=== PATIENT | male | born 1940 | race Caucasian/White ===

== ENCOUNTER 2016-04-11 11:21 | Inpatient (IN) | payer MEDICARE, OTHER ==
[2016-04-11] MEDS ORDERED: SODIUM CHLORIDE 0.9% 500 ML IV STA (12:06)
[2016-04-11] MEDS ORDERED: SODIUM CHLORIDE 0.9% 1,000 ML IV STA (12:06)
[2016-04-11 13:12] LABS: INR 1.2 (<1.1); Partial Thromboplastin Time 24.3 sec (22.0-30.0); Prothrombin Time 11.9 sec (9.0-12.0)
[2016-04-11 13:16] LABS: ALT 21 U/L (21-72); AST 27 U/L (17-59); Alkaline Phosphatase 89 U/L (38-126); Anion Gap 11 mmol/L; Blood Urea Nitrogen 21 mg/dL (9-20); Calcium 8.8 mg/dL (8.4-10.2); Carbon Dioxide 25 mmol/L (22-30); Chloride 105 mmol/L (98-107); Glucose 225 mg/dL (74-99); Non-African American GFR(MDRD) >60 (>60 ml/min/1.73 sqM); Potassium 4.1 mmol/L (3.5-5.1); Sodium 141 mmol/L (137-145); Total Protein 6.3 g/dL (6.3-8.2)
--- NOTE | 2016-04-11 13:33 | CT ---
EXAMINATION TYPE: CT brain wo con DATE OF EXAM: 04/11/2016 1:11 PM COMPARISON: NONE HISTORY: Pt c/o weakness and falling the last four days. CT DLP: 1207 mGycm Automated exposure control for dose reduction was used. FINDINGS: Abnormal low attenuation in the right greater than left frontal lobes is again noted. Periventricular white matter shows low attenuation as on previous exam. Extensive cortical atrophy. Prior lacunar in farcts noted in the basal ganglia on the left are again noted. Prominence of the lateral ventricles i s stable. There are cerebral vascular calcifications. No hemorrhage evident. Calvarium is intact. Inf lammatory change persists within the left maxillary sinus. IMPRESSION: Chronic small vessel ischemia and age-related atrophy. Evidence of previous infarctions. Left maxilla ry sinus disease. Correlate to exclude normal pressure hydrocephalus.
[2016-04-11 13:35] LABS: Basophils % (A) 0 %; CH 30.5; CHCM 34.1; Eosinophils # (A) 0.1 k/uL (0-0.7); Eosinophils % (A) 1 %; HCT 39.5 % (39.0-53.0); HDW 2.71; Luc # (Auto) 0.07; Luc % (Auto) 1; Lymphocytes # (A) 0.3 k/uL (1.0-4.8); Lymphocytes % (A) 5 %; MCH 29.6 pg (25.0-35.0); MCV 89.9 fL (80.0-100.0); Mean Platelet Volume 7.4; Monocytes # (A) 0.4 k/uL (0-1.0); Monocytes % (A) 6 %; Neutrophils % (A) 87 %; RBC 4.39 m/uL (4.30-5.90); RDW 13.8 % (11.5-15.5); WBC 6.9 k/uL (3.8-10.6); WBC (Perox) 7.11
[2016-04-11 13:42] LABS: Creatine Kinase MB 1.9 ng/mL (0.0-2.4); Troponin I 0.025 ng/mL (0.000-0.034)
--- NOTE | 2016-04-11 13:44 | XR ---
EXAMINATION TYPE: XR chest 2V DATE OF EXAM: 04/11/2016 1:17 PM COMPARISON: Prior chest x-ray 13 September 2015 HISTORY: Weakness, recent fall TECHNIQUE: Frontal and lateral views of the chest are obtained. FINDINGS: Patient is post median sternotomy. Intracardiac defibrillator lead is stable. Heart size i s accentuated possibly at least in part due to rotation. There are coronary artery calcifications. No pneumothorax or pleural effusion. Perihilar vascular indistinctness is questioned. IMPRESSION: Correlate to exclude pulmonary venous hypertension and early interstitial edema. Follow- up as indicated.
--- NOTE | 2016-04-11 14:10 | ED ---
Weakness HPI - General Chief complaint: Weakness Stated complaint: FALLING GETTING OUT OF BED Time Seen by Provider: 04/11/16 11:51 Source: patient Mode of arrival: wheelchair Limitations: no limitations - History of Present Illness Initial comments: This 75-year-old white male presents with a complaint of weakness. The patient has Parkinson's disease. He apparently fell multiple times trying to ambulate over the past 4 days. He did obtain a slight abrasion to his right hip as well as a abrasion to his right knee. There is no other injuries. He also apparently fell on [place] and hit his head. He had some swelling to his scalp at that time but did not have a formal provider evaluation. They relate that he's been incontinent for last 2-3 days of urine. He denies any dysuria or frequency hematuria or urgency. Family states that he seems somewhat more forgetful recently as well. He does have a history of recent slight upper respiratory infection with some mild rhinorrhea and occasional cough but no fever. No other complaints or modifying factors. He did have somewhat prolonged down time recently after a fall of 5 hours one time and 2 hours another time. He essentially is unable to ambulate myself at this time. - Related Data Home Medications Medication Instructions Recorded Confirmed Carbidopa/Levodopa 1 tab PO TID 11/19/14 04/11/16 [Carbidopa-Levodopa 25-100 Tab] Dutasteride [Avodart] 0.5 mg PO DAILY 11/19/14 04/11/16 Linagliptin [Tradjenta] 5 mg PO DAILY 11/19/14 04/11/16 Metoprolol Succinate [Toprol XL] 50 mg PO DAILY 11/19/14 04/11/16 Aspirin 81 mg PO BID 09/13/15 04/11/16 Atorvastatin [Lipitor] 40 mg PO DAILY 09/13/15 04/11/16 Lisinopril [Zestril] 20 mg PO DAILY 09/13/15 04/11/16 Amiodarone [Cordarone] 200 mg PO DAILY 04/11/16 04/11/16 Levothyroxine Sodium [Synthroid] 25 mcg PO DAILY 04/11/16 04/11/16 Rivastigmine Tartrate [Exelon] 4.5 mg PO DAILY 04/11/16 04/11/16 Allergies Allergy/AdvReac Type Severity Reaction Status Date / Time No Known Allergies Allergy Verified 04/11/16 11:45 Review of Systems ROS Statement: Those systems with pertinent positive or pertinent negative responses have been documented in the HPI. ROS Other: All systems not noted in ROS Statement are negative. 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 Last Myocardial Infarction Date:: 2004 History of Any Multi-Drug Resistant Organisms: None Reported Past Surgical History: Coronary Bypass/CABG, Heart Catheterization With Stent, Hernia Repair, Pacemaker Additional Past Surgical History / Comment(s): CABG-4 vessel in 2005, AICD 2004 and gen change 11/23/14, bilateral lens implants, lasik eye surgery, L hernia repair Past Anesthesia/Blood Transfusion Reactions: No Reported Reaction Date of Last Stent Placement:: unkn Type of Cardiac Device: AICD Device Placement Date:: original 2004 with gen change 10/2014 Past Psychological History: No Psychological Hx Reported Additional Psychological History / Comment(s): currently at [facility] since july cva-was signed out for the day to visit his son when his defibrillator fired [employer]. He has a cane and walker. He no longer drives-he has a lady who drives him places. was getting meals on wheels daily. when at home. Smoking Status: Former smoker Past Alcohol Use History: Rare Additional Past Alcohol Use History / Comment(s): Pt started smoking in 1989 and quit in 1998. Past Drug Use History: None Reported - Past Family History Father Family Medical History: No Reported History Additional Family Medical History / Comment(s): Father was healthy and at age 84 yrs. Mother Family Medical History: No Reported History Additional Family Medical History / Comment(s): Mother was healthy and at age 82 or 83. General Exam - General Exam Comments Initial Comments: GENERAL: The patient is well nourished and well hydrated. VITAL SIGNS: Heart rate, blood pressure, respiratory rate reviewed as recorded in nurse's notes. EYES: Pupils are round and reactive. Extraocular movements are intact. No conjunctival / lid redness or swelling. ENT: No external evidence of injury, swelling, or ecchymosis. Airway is patent. Throat is clear. NECK: Nontender. No swelling or evidence of injury. No subcutaneous emphysema. Trachea is midline. No thyroid mass. HEART: Regular rate and rhythm. Good peripheral pulses. LUNGS/CHEST: Breath sounds clear and equal bilaterally. No rales, rhonchi, or wheezes. No ecchymosis, subcutaneous emphysema, or tenderness. ABDOMEN: Abdomen soft without tenderness. No palpable masses or organomegaly. No peritoneal signs. No abdominal wall swelling or ecchymosis. EXTREMITIES: No extremity tenderness. Normal muscle tone and function. No thoracolumbar tenderness. NEUROLOGIC: Sensation is grossly intact. Cranial nerve exam reveals face is symmetrical, tongue is midline, speech is clear. SKIN: There is a slight abrasion present to the right hip. There is an old abrasion noted to the right knee. PSYCHIATRIC: Alert and oriented. Appropriate behavior and judgment. Limitations: no limitations Course Vital Signs 04/11/16 04/11/16 11:28 14:00 Temperature 99 F 98.5 F Pulse Rate 64 58 L Respiratory 20 20 Rate Blood Pressure 98/52 109/55 O2 Sat by Pulse 94 L 99 Oximetry Medical Decision Making - Medical Decision Making The patient was seen and examined. All diagnostics were reviewed. The EKG shows a normal sinus rhythm at a rate of 62. There is multiple ST-T wave changes primarily noted in the anterolateral leads. The MA interval is 188, QRS duration is 114, and QTC intervals 479. The laboratory is reviewed and patient has a slightly elevated CPK which would correlate with his recent falls. He had a chest x-ray which shows possible early interstitial edema versus pulmonary hypertension. Computed tomography scan of the brain shows evidence of an old CVA as well as sinusitis. The radiologist would like us to correlate for possible normal pressure hydrocephalus. This felt as though his symptoms are very consistent with a possible normal pressure hydrocephalus as he has been having some incontinence, has had increased forgetfulness, and has new problems with ambulation. It is felt as though he would require admission to the hospital for further treatment. The case will be discussed with internal medicine in the near future patient will be admitted for further treatment. - Lab Data Result diagrams: 04/11/16 12:40 04/11/16 12:40 Lab Results 04/11/16 04/11/16 04/11/16 Range/Units 12:40 12:40 12:40 WBC 6.9 (3.8-10.6) k/uL RBC 4.39 (4.30-5.90) m/uL Hgb 13.0 (13.0-17.5) gm/dL Hct 39.5 (39.0-53.0) % MCV 89.9 (80.0-100.0) fL MCH 29.6 (25.0-35.0) pg MCHC 33.0 (31.0-37.0) g/dL RDW 13.8 (11.5-15.5) % Plt Count 164 (150-450) k/uL Neutrophils % 87 % Lymphocytes % 5 % Monocytes % 6 % Eosinophils % 1 % Basophils % 0 % Neutrophils # 6.0 (1.3-7.7) k/uL Lymphocytes # 0.3 L (1.0-4.8) k/uL Monocytes # 0.4 (0-1.0) k/uL Eosinophils # 0.1 (0-0.7) k/uL Basophils # 0.0 (0-0.2) k/uL PT (9.0-12.0) sec INR (<1.1) APTT (22.0-30.0) sec Sodium 141 (137-145) mmol/L Potassium 4.1 (3.5-5.1) mmol/L Chloride 105 (98-107) mmol/L Carbon Dioxide 25 (22-30) mmol/L Anion Gap 11 mmol/L BUN 21 H (9-20) mg/dL Creatinine 1.11 (0.66-1.25) mg/dL Est GFR (MDRD) Af Amer >60 (>60 ml/min/1.73 sqM) Est GFR (MDRD) Non-Af >60 (>60 ml/min/1.73 sqM) Glucose 225 H (74-99) mg/dL Calcium 8.8 (8.4-10.2) mg/dL Total Bilirubin 1.0 (0.2-1.3) mg/dL AST 27 (17-59) U/L ALT 21 (21-72) U/L Alkaline Phosphatase 89 (38-126) U/L Total Creatine Kinase 353 H (55-170) U/L CK-MB (CK-2) 1.9 (0.0-2.4) ng/mL CK-MB (CK-2) Rel Index 0.5 Troponin I 0.025 (0.000-0.034) ng/mL Total Protein 6.3 (6.3-8.2) g/dL Albumin 3.5 (3.5-5.0) g/dL TSH 2.240 (0.465-4.680) mIU/L 04/11/16 Range/Units 12:40 WBC (3.8-10.6) k/uL RBC (4.30-5.90) m/uL Hgb (13.0-17.5) gm/dL Hct (39.0-53.0) % MCV (80.0-100.0) fL MCH (25.0-35.0) pg MCHC (31.0-37.0) g/dL RDW (11.5-15.5) % Plt Count (150-450) k/uL Neutrophils % % Lymphocytes % % Monocytes % % Eosinophils % % Basophils % % Neutrophils # (1.3-7.7) k/uL Lymphocytes # (1.0-4.8) k/uL Monocytes # (0-1.0) k/uL Eosinophils # (0-0.7) k/uL Basophils # (0-0.2) k/uL PT 11.9 (9.0-12.0) sec INR 1.2 (<1.1) APTT 24.3 (22.0-30.0) sec Sodium (137-145) mmol/L Potassium (3.5-5.1) mmol/L Chloride (98-107) mmol/L Carbon Dioxide (22-30) mmol/L Anion Gap mmol/L BUN (9-20) mg/dL Creatinine (0.66-1.25) mg/dL Est GFR (MDRD) Af Amer (>60 ml/min/1.73 sqM) Est GFR (MDRD) Non-Af (>60 ml/min/1.73 sqM) Glucose (74-99) mg/dL Calcium (8.4-10.2) mg/dL Total Bilirubin (0.2-1.3) mg/dL AST (17-59) U/L ALT (21-72) U/L Alkaline Phosphatase (38-126) U/L Total Creatine Kinase (55-170) U/L CK-MB (CK-2) (0.0-2.4) ng/mL CK-MB (CK-2) Rel Index Troponin I (0.000-0.034) ng/mL Total Protein (6.3-8.2) g/dL Albumin (3.5-5.0) g/dL TSH (0.465-4.680) mIU/L Disposition Clinical Impression: Normal pressure hydrocephalus, Recurrent falls while walking, Parkinson disease , Urinary incontinence, Head injury, Abrasion, Elevated CPK, Hyperglycemia Disposition: ADMITTED IP TO THIS [facility] Condition: Fair Time of Disposition: 15:04 Decision Date: 04/11/16 Decision Time: 15:04
[2016-04-11] MEDS ORDERED: ONDANSETRON 4 MG/2 ML VIAL IVP PRN (15:04)
[2016-04-11] MEDS ORDERED: ACETAMINOPHEN TAB 325 MG TAB PO PRN (15:04)
[2016-04-11] MEDS ORDERED: NALOXONE 0.4 MG/ML 1 ML VIAL IV PRN (15:04)
[2016-04-11 15:19] LABS: Appearance,Urine Clear (Clear); Bacteria,Urine Rare /hpf; Bilirubin,Urine 1+ (Negative); Glucose,Urine (UA) Trace (Negative); Ketones,Urine Trace (Negative); Leukocyte Esterase,Urine Negative (Negative); Mucus,Urine Rare /hpf; Nitrite,Urine Negative (Negative); PH, Urine 5.5 (5.0-8.0); Particle Count 3352; Protein,Urine 1+ (Negative); RBC,Urine <1 /hpf (0-5); Specific Gravity,Urine 1.032 (1.001-1.035); UA Billing (MACRO vs. MICRO) MICRO; WBC,Urine 1 /hpf (0-5)
[2016-04-11] MEDS: CARBIDOPA-LEVODOPA 25-100 MG 1 EACH TAB PO SCH ×2 (17:11→21:00)
[2016-04-11] MEDS: INSULIN LISPRO (humaLOG) 300 UNIT/3 ML VIAL SQ SCH (20:52)
[2016-04-11 20:56] LABS: Glucose,Whole Blood 129 mg/dL (75-99)
[2016-04-11] MEDS: ASPIRIN 81 MG CHEW PO SCH (21:00)
[2016-04-12] MEDS: LEVOTHYROXINE 25 MCG TAB PO SCH (05:45)
[2016-04-12 08:08] LABS: Glucose,Whole Blood 115 mg/dL (75-99)
[2016-04-12] MEDS: INSULIN LISPRO (humaLOG) 300 UNIT/3 ML VIAL SQ SCH ×4 (08:08→20:45)
[2016-04-12] MEDS ORDERED: PANTOPRAZOLE 40 MG/10 ML VIAL IV SCH (09:00)
[2016-04-12] MEDS: AMIODARONE 200 MG TAB PO SCH (09:30)
[2016-04-12] MEDS: ASPIRIN 81 MG CHEW PO SCH ×2 (09:30→21:23)
[2016-04-12] MEDS: METOPROLOL SUCCINATE (ER) 50 MG TAB.ER.24H PO SCH (09:31)
[2016-04-12] MEDS: LISINOPRIL 20 MG TAB PO SCH (09:31)
[2016-04-12] MEDS: ENOXAPARIN 40 MG/0.4 ML SYRINGE SQ SCH (09:31)
[2016-04-12] MEDS: DONEPEZIL 5 MG TAB PO SCH (09:31)
[2016-04-12] MEDS: FINASTERIDE 5 MG TAB PO SCH (09:31)
[2016-04-12] MEDS: CARBIDOPA-LEVODOPA 25-100 MG 1 EACH TAB PO SCH ×2 (09:31→17:08)
[2016-04-12] MEDS: LINAGLIPTIN 5 MG TABLET PO SCH (09:31)
[2016-04-12] MEDS: ATORVASTATIN 40 MG TAB PO SCH (09:31)
[2016-04-12 12:13] LABS: Glucose,Whole Blood 152 mg/dL (75-99)
--- NOTE | 2016-04-12 13:16 | HP ---
DATE OF ADMISSION: 04/11/2016 PRESENTING COMPLAINT: Fall. HISTORY OF PRESENTING COMPLAINT: A 75-year-old patient with a rather extensive medical history. Stable medical conditions include CHF, diabetes, hyperlipidemia, hypertension, BPH, Parkinson's disease, coronary artery disease also AICD. Patient follows with Dr. Martín Julien. Patient lives by himself. Son checks on him. Patient presents after having repeated falls, especially when trying to get out of bed. Denies any chest pain, palpitation. No dizziness. Denies any passing out. Patient's appetite is fair. Denies any fever. Bowel movements are good. REVIEW OF SYSTEMS: CONSTITUTIONAL: Tired. HEENT: Decreased hearing. RESPIRATORY: None. CARDIOVASCULAR: None. GASTROINTESTINAL: None. GENITOURINARY: None. MUSCULOSKELETAL: Pain in different joints. DERMATOLOGICAL: Some bruising especially in the benitez and right hip area. HEMATOLOGICAL: None. LYMPHATICS: None. PSYCHIATRY: Slightly forgetful. NEUROLOGICAL: Slight tremors, weakness in the limbs generalized. Past medical history of stroke, TIA, diabetes mellitus type 2, hyperlipidemia, hypertension, BPH, stroke IN 2011 and 2012, Parkinson disease, ischemic cardiomyopathy, ejection fraction less than 30%, DJD, kidney stones, hemorrhoids. PAST SURGICAL HISTORY: Coronary artery bypass, cardiac cath with stent, hernia repair, pacemaker, AICD, bilateral lens implant, LASIK eye surgery, left hernia repair. SOCIAL HISTORY: Lives by himself. Patient did smoke in the remote past. Son checks on him. FAMILY HISTORY: Reviewed; noncontributory to presentation. ALLERGIES: None. HOME MEDICATIONS: 1. Exelon 4.5 mg p.o. daily . 2. Synthroid 25 mcg p.o. daily. 3. Avodart 0.5 mg p.o. daily. 4. Cordarone 200 mg p.o. daily. 5. Toprol XL 50 mg p.o. daily. 6. Zestril 20 mg p.o. daily. 7. Tradjenta 5 mg p.o. daily. 8. Sinemet 25/100 one tablet p.o. t.i.d. 9. Lipitor 40 mg p.o. daily. 10. Aspirin 81 mg p.o. b.i.d. On examination, temperature 96.7, pulse 58, respiration 20, blood pressure 122/62, pulse ox 96% on room air. GENERAL APPEARANCE: Well built, lying in bed, tired appearing. EYES: Pupils equal. Conjunctivae normal. HEENT: External appearance of nose and ears normal. Oral cavity normal. Decreased hearing. NECK: JVD not raised. Mass not palpable. RESPIRATORY: Effort normal. Lungs are clear. CARDIOVASCULAR: First and second sounds normal. No edema. ABDOMEN: Soft, nontender. Liver and spleen not palpable. LYMPHATIC: No lymph nodes palpable in neck or axillae. PSYCHIATRY: Awake, answering questions. NEUROLOGICAL: Pupils equal. ( ) symmetry. The patient is able to lift both his legs about 30 degrees. DERMATOLOGICAL: Scab healing in both the shins. There is also bruising in the right hip. INVESTIGATIONS: White count 6.9, hemoglobin 13. Potassium 4.1. BUN 21, creatinine 1.1. CT scan of the brain shows chronic small vessel ischemic and age-related atrophy; evidence of previous infarction. ASSESSMENT: 1. The patient is having history of multiple falls possibly proximal myopathy, normal pressure hydrocephalus in the differential with CT scan finding. The proximal myopathy could be from diabetes or Parkinson's itself. 2. AICD. 3. Chronic congestive heart failure from systolic dysfunction; ejection fraction 40% from underlying coronary artery disease. 4. Paroxysmal atrial fibrillation. 5. Diabetes mellitus type 2 on oral hypoglycemic. 6. Hyperlipidemia. 7. Essential hypertension. 8. Benign prostatic hypertrophy. 9. Gait dysfunction at the baseline; uses a walker. 10. Nephrolithiasis, asymptomatic. 11. Idiopathic Parkinson disease, chronic. 12. Coronary artery disease with prior history of stent and bypass, PLAN: PT, OT is consulted. Will get Neurology opinion. Home medication are resumed. Care was discussed with the patient. Patient's TSH is normal.
[2016-04-12 16:47] LABS: Glucose,Whole Blood 111 mg/dL (75-99)
--- NOTE | 2016-04-12 18:48 | P.CNNES ---
History of Present Illness Consult date: 04/12/16 Reason for Consult: Patient with weakness and history of Parkinson's Disease. History of Present Illness: This patient is a 75-year-old male who was admitted to Hospital as he was having increasing number of falls at home. According to the son who was admitted side and provided some the medical history recently over the last 2 days he is sustained 2 or 3 falls at home. Most of these have occurred in his bedroom area. He does have history of underlying Parkinson's disease and has been taking Sinemet CR 50/200 one tablet 3 times a day. Apparently he came into the hospital with lower dose Sinemet which is now been adjusted to his normal dosing. It is possible that the patient has been having difficulty with ambulation secondary to his Parkinson's condition. There is also been some finding of slight increase urinary incontinence. He was brought into the emergency room today for further evaluation. He was seen in the ER by Dr. Shine. He was sent for computed tomography scan of the brain which was reviewed and reveals evidence of chronic small vessel changes. There is evidence of an old stroke in the right frontal lobe. There is some periventricular ischemic changes noted as well. There is mild to moderate degree of ventriculomegaly not typical for severe normal pressure hydrocephalus. The patient was admitted to hospital for further evaluation. Patient is quite comfortable in bed this evening. He is able to answer all questions appropriately. As mentioned he has a history of underlying dementia most likely of vascular dementia for which she has been taking Exelon 4.5 mg daily. We did discuss the Sinemet dose today with his son who was not aware of the change in his dosage strength. We will adjust his medication today and continue to evaluate him. We have recommended that he be evaluated by physical and occupational therapy as well to assess his gait and ambulation. Patient states he ambulates at home with the use of a rolling walker with brakes and a seat. He seems to do fairly well with this. Due to his multiple symptoms of dementia, urinary incontinence, and unsteady gait the question of normal pressure hydrocephalus was raised. At this point he will require a nuclear medicine cisternogram for further evaluation. This is usually a 3 to four-day procedure. If physical therapy feels he has significant impairment we would recommend to arrange for the cisternogram to be done as outpatient on Saturday for further evaluation for NPH. Review of his actual CAT scan today however shows normal size of the third and fourth ventricle. It is felt that his ventriculomegaly is more due to cortical atrophy secondary to vascular dementia. We have reviewed all of these results today in detail with the patient and his son at bedside. We will continue close neurological follow-up for the patient and will adjust his Parkinson's medication today. We will await further recommendations from physical therapy in terms of his gait and station. His overall prognosis at this time remains guarded. Review of Systems Constitutional: Denies chills, Denies fever Eyes: denies blurred vision, denies pain Ears, nose, mouth and throat: Denies headache, Denies sore throat Cardiovascular: Denies chest pain, Denies shortness of breath Respiratory: Denies cough Gastrointestinal: Denies abdominal pain, Denies diarrhea, Denies nausea, Denies vomiting Musculoskeletal: Denies myalgias Integumentary: Denies pruritus, Denies rash Neurological: Reports gait dysfunction, Reports motor disturbance, Denies numbness, Denies weakness Psychiatric: Denies anxiety, Denies depression Endocrine: Denies fatigue, Denies weight change Past Medical History Past Medical History: Coronary Artery Disease (CAD), Chest Pain / Angina, Heart Failure, CVA/TIA, Diabetes Mellitus, Hearing Disorder / Deafness, Hyperlipidemia , Hypertension, Myocardial Infarction (RI), Prostate Disorder, Renal Disease Additional Past Medical History / Comment(s): 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 svt,paroxysmal afib, djd Last Myocardial Infarction Date:: 2004 History of Any Multi-Drug Resistant Organisms: None Reported Past Surgical History: Coronary Bypass/CABG, Heart Catheterization With Stent, Hernia Repair, Pacemaker Additional Past Surgical History / Comment(s): CABG-4 vessel in 2005, AICD 2004 and gen change 11/23/14, bilateral lens implants, lasik eye surgery, L hernia repair Past Anesthesia/Blood Transfusion Reactions: No Reported Reaction Date of Last Stent Placement:: unkn Type of Cardiac Device: [facility] Device Placement Date:: original 2004 with gen change 10/2014 Past Psychological History: No Psychological Hx Reported Additional Psychological History / Comment(s): . He has a cane and walker. lives in own home-no longer drives,stated gets meals on wheels Smoking Status: Former smoker Past Alcohol Use History: None Reported Additional Past Alcohol Use History / Comment(s): Pt started smoking in 1989 and quit in 1998. Past Drug Use History: None Reported - Past Family History Father Family Medical History: No Reported History Additional Family Medical History / Comment(s): Father was healthy and at age 84 yrs. Mother Family Medical History: No Reported History Additional Family Medical History / Comment(s): Mother was healthy and at age 82 or 83. Medications and Allergies Home Medications Medication Instructions Recorded Confirmed Type Carbidopa/Levodopa 1 tab PO TID 11/19/14 04/11/16 History [Carbidopa-Levodopa 25-100 Tab] Dutasteride [Avodart] 0.5 mg PO DAILY 11/19/14 04/11/16 History Linagliptin [Tradjenta] 5 mg PO DAILY 11/19/14 04/11/16 History Metoprolol Succinate [Toprol XL] 50 mg PO DAILY 11/19/14 04/11/16 History Aspirin 81 mg PO BID 09/13/15 04/11/16 History Atorvastatin [Lipitor] 40 mg PO DAILY 09/13/15 04/11/16 History Lisinopril [Zestril] 20 mg PO DAILY 09/13/15 04/11/16 History Amiodarone [Cordarone] 200 mg PO DAILY 04/11/16 04/11/16 History Levothyroxine Sodium [Synthroid] 25 mcg PO DAILY 04/11/16 04/11/16 History Rivastigmine Tartrate [Exelon] 4.5 mg PO DAILY 04/11/16 04/11/16 History Allergies Allergy/AdvReac Type Severity Reaction Status Date / Time No Known Allergies Allergy Verified 04/11/16 11:45 Physical Examination - Vital Signs Vital Signs: Vital Signs Temp Pulse Resp BP Pulse Ox 04/12/16 15:00 98.7 F 58 L 20 145/69 93 L 04/12/16 07:00 98.8 F 58 L 22 138/68 92 L 04/11/16 23:00 96.7 F L 58 L 20 122/62 96 Intake and Output 04/12/16 04/12/16 04/12/16 06:59 14:59 22:59 Intake Total 100 Output Total 600 Balance 100 -600 Intake: Oral 100 Output: Urine 600 Other: # Voids 4 1 # Bowel Movements 1 - Constitutional General appearance: average body habitus - EENT EENT: PERRL, mucous membranes moist - Respiratory Respiratory: lungs clear, normal breath sounds - Cardiovascular Cardiovascular: regular rate, normal S1, normal S2 Extremities: no peripheral edema bilaterally - Gastrointestinal Gastrointestinal: normoactive bowel sounds - Integumentary Integumentary: normal - Neurologic Cranial nerve examination: PERRL, EOMI, VFF, V1/V2/V3 grossly intact, face symmetric, tongue midline, intact gag reflex, intact corneal reflex, normal palatal elevation Speech examination: intact Sensorimotor examination: intact Motor examination - right side: 4/5: biceps, triceps, wrist flexion, wrist extension, stave block splitter, hip flexors, knee extensors, dorsiflexion, toe extension (EHL) , plantarflexion Motor examination - left side: 5/5: biceps, triceps, wrist flexion, wrist extension, stave block splitter, hip flexors, knee extensors, dorsiflexion, toe extension (EHL) , plantarflexion Detailed sensory examination: intact Reflex and gait examination: intact Reflexes: 1+: ankle, bicep, knee, tricep - Musculoskeletal Musculoskeletal: no pain - Psychiatric Psychiatric: mood/affect appropriate, cooperative Results - Laboratory Findings CBC and BMP: 04/11/16 12:40 04/11/16 12:40 Abnormal Lab Findings: Abnormal Labs 04/11/16 04/12/16 04/12/16 20:50 08:06 12:12 POC Glucose (mg/dL) 129 H 115 H 152 H 04/12/16 16:45 POC Glucose (mg/dL) 111 H Assessment and Plan (1) Parkinson disease Status: Acute Code(s): G20 - PARKINSON'S DISEASE (2) Vascular dementia Status: Acute Code(s): F01.50 - VASCULAR DEMENTIA WITHOUT BEHAVIORAL DISTURBANCE (3) Cerebral ventriculomegaly Status: Acute Code(s): G93.89 - OTHER SPECIFIED DISORDERS OF BRAIN (4) Normal pressure hydrocephalus Status: Acute Code(s): G91.2 - (IDIOPATHIC) NORMAL PRESSURE HYDROCEPHALUS Plan: This patient is a 75-year-old male admitted to the hospital with symptoms of recent falls and urinary incontinence. Patient has a long-standing history of Parkinson's disease as well as vascular dementia. Apparently he was not taking his prescribed dose of Sinemet. His Sinemet dose was adjusted today on admission. He may have had increased difficulty with ambulation as he was on lower dose of Sinemet for his Parkinson's disease. He underwent evaluation in the emergency room including a computed tomography scan of the brain. CAT scan of the brain revealed mild to moderate degree of ventriculomegaly. There was suspicion of questionable normal pressure hydrocephalus. The patient will require a nuclear medicine cisternogram for further evaluation for NPH. This is a 3 to four-day procedure and can be arranged as outpatient for this patient soon after discharge. The patient is being placed back on his recommended dose of Sinemet. We will have physical therapy and occupational therapy assess him for gait and station. Would recommend increase his activity as he tolerates. We will discuss with the patient and his family members whether they would like to proceed with a nuclear medicine cisternogram which would need to be arranged as outpatient for this particular evaluation. In the meantime he should continue with current medications for his Parkinson's disease. He is also to continue on Exelon for treatment of underlying dementia. His overall prognosis at this time remains guarded. We will continue close neurological follow-up with the patient during this admission. Time with Patient: Greater than 30
[2016-04-12 20:46] LABS: Glucose,Whole Blood 113 mg/dL (75-99)
[2016-04-12] MEDS: CARBIDOPA-LEVODOPA ER 50-200MG 1 EACH TABLET.ER PO SCH (21:23)
[2016-04-13] MEDS: LEVOTHYROXINE 25 MCG TAB PO SCH (05:42)
[2016-04-13 07:52] LABS: Glucose,Whole Blood 111 mg/dL (75-99)
[2016-04-13] MEDS: INSULIN LISPRO (humaLOG) 300 UNIT/3 ML VIAL SQ SCH ×4 (08:04→20:30)
[2016-04-13] MEDS: LISINOPRIL 20 MG TAB PO SCH (08:05)
[2016-04-13] MEDS: CARBIDOPA-LEVODOPA ER 50-200MG 1 EACH TABLET.ER PO SCH ×3 (08:05→21:01)
[2016-04-13] MEDS: AMIODARONE 200 MG TAB PO SCH (08:05)
[2016-04-13] MEDS: DONEPEZIL 5 MG TAB PO SCH (08:05)
[2016-04-13] MEDS: ATORVASTATIN 40 MG TAB PO SCH (08:05)
[2016-04-13] MEDS: LINAGLIPTIN 5 MG TABLET PO SCH (08:05)
[2016-04-13] MEDS: METOPROLOL SUCCINATE (ER) 50 MG TAB.ER.24H PO SCH (08:05)
[2016-04-13] MEDS: FINASTERIDE 5 MG TAB PO SCH (08:05)
[2016-04-13] MEDS: ASPIRIN 81 MG CHEW PO SCH ×2 (08:05→20:03)
[2016-04-13] MEDS: ENOXAPARIN 40 MG/0.4 ML SYRINGE SQ SCH (10:03)
[2016-04-13 12:31] LABS: Glucose,Whole Blood 163 mg/dL (75-99)
--- NOTE | 2016-04-13 16:02 | P.PN ---
Subjective Principal diagnosis: This patient is a 75-year-old right-handed white male who was managed Hospital with symptoms of recent falls. He has a complicated past medical history with multiple complex medical issues. He suffers from Parkinson's disease as well as dementia. Apparently he is having increased number of falls over the last 2 weeks. He was brought into the emergency room for further evaluation yesterday. He underwent a computed tomography scan of the brain which did reveal some mild ventriculomegaly. There was possibility of mild NPH. Patient was admitted to the hospital and he was seen in neurology consultation yesterday. He was not on his proper dosage of Sinemet. We did adjust his Sinemet dose last night. He seems to be doing slightly better today. He was up and ambulating with a walker and did do fairly well with the physical therapist earlier today. We did review the CAT scan findings yesterday with the patient's son at bedside. If they wish to pursue further assessment of NPH he would require rather extensive cisternogram procedure which could only be done next week due to the unavailability of the tracer material. He would require nuclear medicine cisternogram procedure for further assessment. At this time he does seem to be doing good with physical therapy. He would benefit from inpatient rehab. We did discuss this today with Dr. Espinoza. He is in agreement and we will try to make arrangements for rehabilitation for him at this time. If the family wishes to pursue further assessment of NPH this can be done in the outpatient setting with proper referral to neurosurgery as well. At this time he seems to be doing fairly well and is in no acute distress. We will continue close neurological follow-up with the patient during this admission. Objective - Vital Signs Vital signs: Vital Signs Temp 98.8 F 04/13/16 07:00 Pulse 54 L 04/13/16 07:00 Resp 20 04/13/16 07:00 BP 150/70 04/13/16 07:00 Pulse Ox 96 04/13/16 07:00 Intake & Output 04/12/16 04/13/16 04/13/16 18:59 06:59 18:59 Intake Total 200 Output Total 600 Balance -600 200 Intake: Oral 200 Output: Urine 600 Other: # Voids 1 4 4 # Bowel Movements 1 - Exam Physical examination: PHYSICAL EXAMINATION: Patient is resting comfortably in bed. VITAL SIGNS: Blood pressure is [137/56]. Heart rate is [55]. Respiration is [18] . Temperature is [97.0]. HEENT: Head is atraumatic, neck is supple, there were no carotid bruits. CHEST: Lungs are clear to auscultation and percussion. CARDIAC: S1, S2 normal rate and rhythm. There is no murmur. ABDOMEN: Soft and nontender. Bowel sounds are present. EXTREMITIES: There is no pedal edema. Peripheral pulses are present. Neurological examination: Patient's neurological examination unchanged from yesterday. He is noted to be standing up and ambulating with his walker. He is an bleeding quite freely and does not appear to have any gait ataxia. His remaining neurological examination is unchanged. - Labs CBC & Chem 7: 04/11/16 12:40 04/11/16 12:40 Labs: Abnormal Lab Results - Last 24 Hours (Table) 04/12/16 04/12/16 04/13/16 Range/Units 16:45 20:42 07:49 POC Glucose (mg/dL) 111 H 113 H 111 H (75-99) mg/dL 04/13/16 Range/Units 12:30 POC Glucose (mg/dL) 163 H (75-99) mg/dL Assessment and Plan (1) Parkinson disease Status: Acute Code(s): G20 - PARKINSON'S DISEASE (2) Vascular dementia Status: Acute Code(s): F01.50 - VASCULAR DEMENTIA WITHOUT BEHAVIORAL DISTURBANCE (3) Cerebral ventriculomegaly Status: Acute Code(s): G93.89 - OTHER SPECIFIED DISORDERS OF BRAIN (4) Normal pressure hydrocephalus Status: Acute Code(s): G91.2 - (IDIOPATHIC) NORMAL PRESSURE HYDROCEPHALUS Plan: This patient is 75-year-old male with known history of underlying Parkinson's disease and vascular dementia. He is admitted with recent falls and questionable findings for NPH. He underwent a computed tomography scan which revealed slight ventriculomegaly. We did review the CAT scan results in detail with the patient's son yesterday at bedside. His symptoms are not strongly in favor of NPH. If we wish to pursue further diagnosis he would require a nuclear medicine cisternogram. This is a 3 to four-day procedure. This could only be done next week if he wishes to proceed with further assessment. At this time the patient seems to be doing fairly well with his adjusted Sinemet dose today. He has been up and working with physical therapy. We would recommend that he be considered for transfer to a subacute rehab for inpatient physical therapy. Depending on how he does with the therapy he may then be considered for further workup for NPH in the outpatient setting with a nuclear medicine cisternogram or referral to neurosurgery. His overall prognosis at this time remains guarded. Case was discussed today at length with Dr. Espinoza. He is in agreement with our current treatment plan. We will continue close follow-up.
[2016-04-13 17:03] LABS: Glucose,Whole Blood 164 mg/dL (75-99)
--- NOTE | 2016-04-13 19:53 | PN ---
DATE OF SERVICE: 04/13/2016 PRESENTING COMPLAINT: Falls. INTERVAL HISTORY: This is a patient with known Parkinson's disease. She presented with falls. I spoke to Dr. Santoro. He did not think patient really had normal pressure hydrocephalus, and I think the same. He may need a little bit of adjustment of his Parkinson's medication; otherwise patient has no major tremors or rigidity. Patient has some Parkinson-associated dementia. Patient's 2 sons are at the bedside. Patient has been eating well. Review of systems done for constitutional, cardiovascular, GI, pulmonary; relevant findings as above. Current medications are reviewed. On examination, temperature 98, pulse 54, respiration 20, blood pressure 150/70, pulse ox 96% on room air. GENERAL APPEARANCE: Lying in bed, comfortable. EYES: Pupils equal. Conjunctivae normal. NECK: JVD not raised. RESPIRATORY: Effort normal. Lungs are clear. CARDIOVASCULAR: First and second seconds normal. No edema. ABDOMEN: Soft, nontender. Liver and spleen not palpable. PSYCHIATRY: Awake. Answering simple questions. NEUROLOGICAL: Patient is able to lift his legs about 40 to 50 degrees, straight-leg raising. No rigidity or tremor. INVESTIGATIONS: Accu-Cheks are noted. ASSESSMENT: 1. Proximal myopathy, cause unclear, causing falls. Could be secondary to diabetes mellitus, type 2. 2. Automatic implantable cardioverter defibrillator. 3. Chronic congestive heart failure from systolic dysfunction and underlying coronary artery disease. 4. Paroxysmal atrial fibrillation. 5. Diabetes mellitus, type 2, on oral hypoglycemic. 6. Hyperlipidemia. 7. Essential hypertension. 8. Benign prostatic hypertrophy. 9. Gait dysfunction at baseline; uses a walker. 10. Nephrolithiasis, asymptomatic. 11. Idiopathic Parkinson's disease, chronic. 12. Coronary artery disease with prior history of stent and bypass. 13. Possible dementia associated with Parkinson disease. PLAN: I had a very long discussion with patient's 2 sons. I am concerned about patient's falls at home. PT/OT is already consulted. Dr. Santoro will see if any medication for Parkinson's will be adjusted. Also spoke to counter caser Leticia, looking at inpatient rehab. Total time spent was about 40 minutes, including discussion with sons and Dr. Santoro, with over 20 minutes of discussion.
[2016-04-13 20:34] LABS: Glucose,Whole Blood 147 mg/dL (75-99)
[2016-04-14] MEDS: LEVOTHYROXINE 25 MCG TAB PO SCH (05:47)
[2016-04-14 07:01] LABS: Glucose,Whole Blood 142 mg/dL (75-99)
[2016-04-14] MEDS: AMIODARONE 200 MG TAB PO SCH (08:25)
[2016-04-14] MEDS: INSULIN LISPRO (humaLOG) 300 UNIT/3 ML VIAL SQ SCH ×4 (08:25→20:52)
[2016-04-14] MEDS: ENOXAPARIN 40 MG/0.4 ML SYRINGE SQ SCH (08:25)
[2016-04-14] MEDS: ASPIRIN 81 MG CHEW PO SCH ×2 (08:25→21:01)
[2016-04-14] MEDS: FINASTERIDE 5 MG TAB PO SCH (08:26)
[2016-04-14] MEDS: DONEPEZIL 5 MG TAB PO SCH (08:26)
[2016-04-14] MEDS: LINAGLIPTIN 5 MG TABLET PO SCH (08:26)
[2016-04-14] MEDS: LISINOPRIL 20 MG TAB PO SCH (08:26)
[2016-04-14] MEDS: ATORVASTATIN 40 MG TAB PO SCH (08:26)
[2016-04-14] MEDS: METOPROLOL SUCCINATE (ER) 50 MG TAB.ER.24H PO SCH (08:26)
[2016-04-14] MEDS: CARBIDOPA-LEVODOPA ER 50-200MG 1 EACH TABLET.ER PO SCH ×3 (08:26→21:00)
[2016-04-14 12:11] LABS: Glucose,Whole Blood 176 mg/dL (75-99)
--- NOTE | 2016-04-14 14:29 | P.PN ---
Subjective This patient is a 75-year-old male with history of Parkinson's disease and vascular dementia. Patient was admitted with increase gait instability and falls at home. He seems to be doing better after his Sinemet dose was adjusted on admission. He has been able to work with physical therapy. Plans are now for the patient to be considered for either discharge home with outpatient PT OT evaluation or to consider inpatient rehab. Patient's CAT scan of the brain revealed questionable NPH. This seems to be less likely condition for this patient but would require further evaluation with nuclear medicine cisternogram. This may be discussed with family which can be arranged for him in the outpatient setting as it is a 3 to four-day procedure. Question is whether he would be agreeable for neurosurgical intervention if there was some positive findings. At this time we will continue close monitoring of his underlying Parkinson's condition. He does seem to be getting up with assistance and using his walker. According to the nursing staff the patient continues to do well today. He has been able to get up with the use of his walker. Will await discharge planning for this patient which should occur early in the week. His overall prognosis at this time remains guarded. Objective - Vital Signs Vital signs: Vital Signs Temp 97.4 F L 04/14/16 07:00 Pulse 65 04/14/16 07:00 Resp 20 04/14/16 07:00 BP 143/82 04/14/16 07:00 Pulse Ox 93 L 04/14/16 07:00 Intake & Output 04/13/16 04/14/16 04/14/16 18:59 06:59 18:59 Intake Total 200 Balance 200 Intake: Oral 200 Other: Voiding Method Toilet Incontinent # Voids 4 2 - Exam Physical examination: PHYSICAL EXAMINATION: Patient is resting comfortably in bed. VITAL SIGNS: Blood pressure is [143/82]. Heart rate is [65]. Respiration is [20] . Temperature is [97.4]. HEENT: Head is atraumatic, neck is supple, there were no carotid bruits. CHEST: Lungs are clear to auscultation and percussion. CARDIAC: S1, S2 normal rate and rhythm. There is no murmur. ABDOMEN: Soft and nontender. Bowel sounds are present. EXTREMITIES: There is no pedal edema. Peripheral pulses are present. Neurological examination: Patient's neurological examination unchanged from yesterday. He is noted to be standing up and ambulating with his walker. He is an bleeding quite freely and does not appear to have any gait ataxia. His remaining neurological examination is unchanged. - Labs CBC & Chem 7: 04/11/16 12:40 04/11/16 12:40 Labs: Abnormal Lab Results - Last 24 Hours (Table) 04/13/16 04/13/16 04/13/16 Range/Units 12:30 17:00 20:28 POC Glucose (mg/dL) 163 H 164 H 147 H (75-99) mg/dL 04/14/16 04/14/16 Range/Units 06:56 11:59 POC Glucose (mg/dL) 142 H 176 H (75-99) mg/dL Assessment and Plan (1) Parkinson disease Status: Acute Code(s): G20 - PARKINSON'S DISEASE (2) Vascular dementia Status: Acute Code(s): F01.50 - VASCULAR DEMENTIA WITHOUT BEHAVIORAL DISTURBANCE (3) Cerebral ventriculomegaly Status: Acute Code(s): G93.89 - OTHER SPECIFIED DISORDERS OF BRAIN (4) Normal pressure hydrocephalus Status: Acute Code(s): G91.2 - (IDIOPATHIC) NORMAL PRESSURE HYDROCEPHALUS Plan: This patient is 75-year-old male with known history of underlying Parkinson's disease and vascular dementia. He is admitted with recent falls and questionable findings for NPH. He underwent a computed tomography scan which revealed slight ventriculomegaly. We did review the CAT scan results in detail with the patient's son yesterday at bedside. His symptoms are not strongly in favor of NPH. If we wish to pursue further diagnosis he would require a nuclear medicine cisternogram. This is a 3 to four-day procedure. This could only be done next week if he wishes to proceed with further assessment. At this time the patient seems to be doing fairly well with his adjusted Sinemet dose today. He has been up and working with physical therapy. We would recommend that he be considered for transfer to a subacute rehab for inpatient physical therapy. Depending on how he does with the therapy he may then be considered for further workup for NPH in the outpatient setting with a nuclear medicine cisternogram or referral to neurosurgery. Patient to continue on his current dose of Sinemet. He does seem to be near baseline in terms of his mental status. He is to continue on his current dose of Exelon for treatment of vascular dementia. His overall prognosis at this time remains guarded. Case was discussed today at length with Dr. Espinoza. He is in agreement with our current treatment plan. As noted the patient can consider nuclear medicine cisternogram in the outpatient setting depending on how he does following discharge home. We will continue close neurological follow-up for this patient during this admission.
[2016-04-14 17:15] LABS: Glucose,Whole Blood 119 mg/dL (75-99)
[2016-04-14 20:50] LABS: Glucose,Whole Blood 111 mg/dL (75-99)
[2016-04-15] MEDS: LEVOTHYROXINE 25 MCG TAB PO SCH (05:25)
[2016-04-15 07:16] LABS: Glucose,Whole Blood 110 mg/dL (75-99)
--- NOTE | 2016-04-15 07:17 | PN ---
DATE OF SERVICE: 04/14/2016 PRESENTING COMPLAINT: Fall. INTERVAL HISTORY: This is a patient who presented with fall. His medications were adjusted. Patient is comfort, tolerating a diet, looking at placement. Review of systems done for constitutional, cardiovascular, GI, pulmonary; relevant findings as above. Current medications are reviewed. On examination, temperature 97.4, pulse 85, respiratory rate 20, blood pressure 142/82, pulse ox 93% on room air. GENERAL APPEARANCE: Sitting in bed, comfortable. EYES: Pupils equal. Conjunctivae normal. NECK: JVD not raised. Mass not palpable. RESPIRATORY: Effort normal. Lungs are clear. CARDIOVASCULAR: First and second sounds normal. No edema. ABDOMEN: Soft, nontender. Liver and spleen not palpable. PSYCHIATRY: Awake, answering simple questions. INVESTIGATIONS: Accu-Cheks are noted. ASSESSMENT: 1. Proximal myopathy, cause unclear, causing falls, could be secondary to diabetes mellitus, type 2. 2. Automatic implantable cardioverter defibrillator. 3. Chronic congestive heart failure from systolic dysfunction from underlying coronary artery disease. 4. Paroxysmal atrial fibrillation. 5. Diabetes mellitus type 2 on oral hypoglycemic. 6. Hyperlipidemia. 7. Essential hypertension. 8. Benign prostatic hypertrophy. 9. Gait dysfunction. 10. Nephrolithiasis, asymptomatic. 11. Idiopathic Parkinson's disease, chronic. 12. Coronary artery disease with prior history of stent on bypass. 13. Dementia associated with Parkinson's disease. PLAN: Continue current medication and treatment plan. Looking at inpatient rehab placement.
[2016-04-15] MEDS: INSULIN LISPRO (humaLOG) 300 UNIT/3 ML VIAL SQ SCH ×4 (07:21→21:18)
[2016-04-15] MEDS: METOPROLOL SUCCINATE (ER) 50 MG TAB.ER.24H PO SCH (08:29)
[2016-04-15] MEDS: LISINOPRIL 20 MG TAB PO SCH (08:29)
[2016-04-15] MEDS: ATORVASTATIN 40 MG TAB PO SCH (08:29)
[2016-04-15] MEDS: ASPIRIN 81 MG CHEW PO SCH ×2 (08:29→21:18)
[2016-04-15] MEDS: DONEPEZIL 5 MG TAB PO SCH (08:29)
[2016-04-15] MEDS: AMIODARONE 200 MG TAB PO SCH (08:29)
[2016-04-15] MEDS: LINAGLIPTIN 5 MG TABLET PO SCH (08:29)
[2016-04-15] MEDS: CARBIDOPA-LEVODOPA ER 50-200MG 1 EACH TABLET.ER PO SCH ×3 (08:29→21:18)
[2016-04-15] MEDS: FINASTERIDE 5 MG TAB PO SCH (08:29)
[2016-04-15] MEDS: ENOXAPARIN 40 MG/0.4 ML SYRINGE SQ SCH (08:29)
[2016-04-15 11:43] LABS: Glucose,Whole Blood 138 mg/dL (75-99)
--- NOTE | 2016-04-15 16:04 | P.PN ---
Subjective This patient is a 75-year-old male who was admitted to hospital with generalized weakness and multiple falls. He has multiple complex medical issues which include Parkinson's disease and vascular dementia. He underwent a computed tomography scan of the brain which revealed slight ventriculomegaly suggesting NPH. At this time he seems to be relatively stable and does not have findings consistent with worsening NPH. If conditions change or worsen he may be considered for nuclear medicine cisternogram in the outpatient setting. He is being considered for inpatient rehab placement for further management. He is to work with PT/OT for further management. His Sinemet dose was adjusted on admission and it has helped as he is more ambulatory. He is walking with the use of a walker. According to the nursing staff he has been very stable when up with a walker. As mentioned we will continue close monitoring of the physical therapy evaluations for the patient. He is being considered for possible ECF placement for a short period of time for subacute rehab. He should continue with PT evaluations during this admission. Objective - Vital Signs Vital signs: Vital Signs Temp 97.8 F 04/15/16 07:00 Pulse 53 L 04/15/16 07:00 Resp 19 04/15/16 07:00 BP 147/72 04/15/16 07:00 Pulse Ox 94 L 04/15/16 07:00 Intake & Output 04/14/16 04/15/16 04/15/16 18:59 06:59 18:59 Output Total 250 Balance -250 Weight 93 kg Output: Urine 250 Other: # Voids 3 2 - Exam Physical examination: PHYSICAL EXAMINATION: Patient is resting comfortably in bed. VITAL SIGNS: Blood pressure is [147/72]. Heart rate is [53]. Respiration is [19] . Temperature is [97.8]. HEENT: Head is atraumatic, neck is supple, there were no carotid bruits. CHEST: Lungs are clear to auscultation and percussion. CARDIAC: S1, S2 normal rate and rhythm. There is no murmur. ABDOMEN: Soft and nontender. Bowel sounds are present. EXTREMITIES: There is no pedal edema. Peripheral pulses are present. Neurological examination: Patient's neurological examination unchanged from yesterday. He is noted to be standing up and ambulating with his walker. He is an bleeding quite freely and does not appear to have any gait ataxia. His remaining neurological examination is unchanged. - Labs CBC & Chem 7: 04/11/16 12:40 04/11/16 12:40 Labs: Abnormal Lab Results - Last 24 Hours (Table) 04/14/16 04/14/16 04/15/16 Range/Units 17:07 20:48 07:13 POC Glucose (mg/dL) 119 H 111 H 110 H (75-99) mg/dL 04/15/16 Range/Units 11:32 POC Glucose (mg/dL) 138 H (75-99) mg/dL Assessment and Plan (1) Parkinson disease Status: Acute Code(s): G20 - PARKINSON'S DISEASE (2) Vascular dementia Status: Acute Code(s): F01.50 - VASCULAR DEMENTIA WITHOUT BEHAVIORAL DISTURBANCE (3) Cerebral ventriculomegaly Status: Acute Code(s): G93.89 - OTHER SPECIFIED DISORDERS OF BRAIN (4) Normal pressure hydrocephalus Status: Acute Code(s): G91.2 - (IDIOPATHIC) NORMAL PRESSURE HYDROCEPHALUS Plan: This patient is 75-year-old male with known history of underlying Parkinson's disease and vascular dementia. He is admitted with recent falls and questionable findings for NPH. He underwent a computed tomography scan which revealed slight ventriculomegaly. We did review the CAT scan results in detail with the patient's son yesterday at bedside. His symptoms are not strongly in favor of NPH. If we wish to pursue further diagnosis he would require a nuclear medicine cisternogram. This is a 3 to four-day procedure. This could only be done next week if he wishes to proceed with further assessment. At this time the patient seems to be doing fairly well with his adjusted Sinemet dose today. He has been up and working with physical therapy. We would recommend that he be considered for transfer to a subacute rehab for inpatient physical therapy. Depending on how he does with the therapy he may then be considered for further workup for NPH in the outpatient setting with a nuclear medicine cisternogram or referral to neurosurgery. Patient to continue on his current dose of Sinemet. He does seem to be near baseline in terms of his mental status. He is to continue on his current dose of Exelon for treatment of vascular dementia. His overall prognosis at this time remains guarded. Case was discussed today at length with Dr. Espinoza. He is in agreement with our current treatment plan. Patient has been doing well with physical therapy. He has been able to ambulate with his walker. At this time he shows no obvious worsening of his Parkinson's condition. As noted the patient can consider nuclear medicine cisternogram in the outpatient setting depending on how he does following discharge home. We will continue close neurological follow-up for this patient during this admission.
[2016-04-15 17:30] LABS: Glucose,Whole Blood 141 mg/dL (75-99)
[2016-04-15 20:59] LABS: Glucose,Whole Blood 141 mg/dL (75-99)
--- NOTE | 2016-04-15 21:40 | PN ---
DATE OF SERVICE: 04/15/2016 PRESENTING COMPLAINT: Fall. INTERVAL HISTORY: This is a patient presented with falls felt to be proximal myopathy, tolerating his diet, awaiting placement in rehab. Review of systems done for constitutional, cardiovascular, GI, pulmonary; relevant findings as above. Medications are reviewed. On examination, temperature 98, pulse 55, respirations 16, blood pressure 120/66, pulse ox 92% on room air. GENERAL APPEARANCE: Sitting in bed, comfortable, smiling. EYES: Pupils equal. Conjunctivae normal. NECK: JVD not raised. Mass not palpable. RESPIRATORY: Effort normal. Lungs are clear. CARDIOVASCULAR: First and second sounds normal. No edema. ABDOMEN: Soft, nontender. Liver and spleen not palpable. PSYCHIATRY: Awake, answering questions. INVESTIGATIONS: Accu-Cheks are noted. ASSESSMENT: 1. Proximal myopathy cause unclear causing falls could be secondary to diabetes mellitus, type II. 2. Automatic implantable cardioverter defibrillator. 3. Chronic congestive heart failure from systolic dysfunction, underlying coronary artery disease. 4. Paroxysmal atrial fibrillation. 5. Type 2 diabetes mellitus, on oral hypoglycemics. 6. Hyperlipidemia. 7. Essential hypertension. 8. ( ). 9. Gait dysfunction. 10. Nephrolithiasis, asymptomatic. 11. Idiopathic Parkinson's disease, chronic. 12. Coronary disease with prior history of stent and bypass. 13. Dementia, associated with Parkinson's disease. PLAN: Continue current medication and treatment plan. Awaiting placement to rehab.
[2016-04-16] MEDS: LEVOTHYROXINE 25 MCG TAB PO SCH (05:47)
[2016-04-16 07:54] LABS: Glucose,Whole Blood 133 mg/dL (75-99)
[2016-04-16] MEDS: FINASTERIDE 5 MG TAB PO SCH (08:38)
[2016-04-16] MEDS: CARBIDOPA-LEVODOPA ER 50-200MG 1 EACH TABLET.ER PO SCH ×3 (08:38→21:02)
[2016-04-16] MEDS: DONEPEZIL 5 MG TAB PO SCH (08:38)
[2016-04-16] MEDS: METOPROLOL SUCCINATE (ER) 50 MG TAB.ER.24H PO SCH (08:39)
[2016-04-16] MEDS: ASPIRIN 81 MG CHEW PO SCH ×2 (08:39→21:02)
[2016-04-16] MEDS: LISINOPRIL 20 MG TAB PO SCH (08:39)
[2016-04-16] MEDS: AMIODARONE 200 MG TAB PO SCH (08:39)
[2016-04-16] MEDS: INSULIN LISPRO (humaLOG) 300 UNIT/3 ML VIAL SQ SCH ×4 (08:39→21:03)
[2016-04-16] MEDS: LINAGLIPTIN 5 MG TABLET PO SCH (08:39)
[2016-04-16] MEDS: ATORVASTATIN 40 MG TAB PO SCH (08:39)
[2016-04-16] MEDS: ENOXAPARIN 40 MG/0.4 ML SYRINGE SQ SCH (08:40)
[2016-04-16 12:16] LABS: Glucose,Whole Blood 114 mg/dL (75-99)
[2016-04-16 14:17] VITALS: BMI 29.2
[2016-04-16 17:31] LABS: Glucose,Whole Blood 163 mg/dL (75-99)
--- NOTE | 2016-04-16 19:13 | P.PN ---
Subjective This patient is a 75-year-old male who was admitted to hospital with generalized weakness and multiple falls. He has multiple complex medical issues which include Parkinson's disease and vascular dementia. He underwent a computed tomography scan of the brain which revealed slight ventriculomegaly suggesting NPH. At this time he seems to be relatively stable and does not have findings consistent with worsening NPH. If conditions change or worsen he may be considered for nuclear medicine cisternogram in the outpatient setting. He is being considered for inpatient rehab placement for further management. He is to work with PT/OT for further management. His Sinemet dose was adjusted on admission and it has helped as he is more ambulatory. He is walking with the use of a walker. He states he was able to walk in the room today with his walker. According to the nursing staff he has been very stable when up with a walker. As mentioned we will continue close monitoring of the physical therapy evaluations for the patient. He is being considered for possible ECF placement for a short period of time for subacute rehab. Plan is for possible discharge to [facility] for [facility]acute rehab tomorrow. He should continue with PT evaluations during this admission. Objective - Vital Signs Vital signs: Vital Signs Temp 97.0 F L 04/16/16 15:00 Pulse 52 L 04/16/16 15:00 Resp 18 04/16/16 15:00 BP 120/66 04/16/16 15:00 Pulse Ox 95 04/16/16 15:00 Intake & Output 04/15/16 04/16/16 04/16/16 18:59 06:59 18:59 Intake Total 100 360 Balance 100 360 Weight 98 kg 98 kg Intake: Oral 100 360 Other: # Voids 4 4 2 # Bowel Movements 0 - Exam Physical examination: PHYSICAL EXAMINATION: Patient is resting comfortably in bed. VITAL SIGNS: Blood pressure is [120/65]. Heart rate is [52]. Respiration is [18] . Temperature is [97.0]. HEENT: Head is atraumatic, neck is supple, there were no carotid bruits. CHEST: Lungs are clear to auscultation and percussion. CARDIAC: S1, S2 normal rate and rhythm. There is no murmur. ABDOMEN: Soft and nontender. Bowel sounds are present. EXTREMITIES: There is no pedal edema. Peripheral pulses are present. Neurological examination: Patient's neurological examination unchanged from yesterday. He is noted to be standing up and ambulating with his walker. He is an bleeding quite freely and does not appear to have any gait ataxia. His remaining neurological examination is unchanged. - Labs CBC & Chem 7: 04/11/16 12:40 04/11/16 12:40 Labs: Abnormal Lab Results - Last 24 Hours (Table) 04/15/16 04/16/16 04/16/16 Range/Units 20:57 07:47 12:00 POC Glucose (mg/dL) 141 H 133 H 114 H (75-99) mg/dL 04/16/16 Range/Units 17:06 POC Glucose (mg/dL) 163 H (75-99) mg/dL Assessment and Plan (1) Parkinson disease Status: Acute Code(s): G20 - PARKINSON'S DISEASE (2) Vascular dementia Status: Acute Code(s): F01.50 - VASCULAR DEMENTIA WITHOUT BEHAVIORAL DISTURBANCE (3) Cerebral ventriculomegaly Status: Acute Code(s): G93.89 - OTHER SPECIFIED DISORDERS OF BRAIN (4) Normal pressure hydrocephalus Status: Acute Code(s): G91.2 - (IDIOPATHIC) NORMAL PRESSURE HYDROCEPHALUS Plan: This patient is a 75-year-old male being followed for history of Parkinson's disease. He seems to be doing somewhat better since being adjusted on his Sinemet dosing. He is awaiting transfer to a subacute rehab center for ongoing PT/ OT evaluation. He does not have acute findings for NPH at this time. If he does show some changes at a later time he may be considered for a nuclear medicine cisternogram for further assessment. At this time given his age and the invasive nature of this testing we will hold off unless absolutely necessary. He is to continue with inpatient PT here until a rehab assignment is given. We will continue to follow his progress very closely.
[2016-04-16 20:47] LABS: Glucose,Whole Blood 117 mg/dL (75-99)
--- NOTE | 2016-04-16 21:46 | PN ---
DATE OF SERVICE: 04/16/2016 PRESENTING COMPLAINT: Falls. INTERVAL HISTORY: This patient presented with falls, felt to be ( ) also contribution from Parkinson's. Patient otherwise comfortable. Awaiting placement. Tolerating his diet. Review of systems done for constitutional, cardiovascular, GI, pulmonary, musculoskeletal; relevant findings as above. Current medications are reviewed. On examination, temperature 97, pulse 52, respirations 18, blood pressure 120/66, pulse ox 95% on room air. GENERAL APPEARANCE: Lying in bed, comfortable. EYES: Pupils equal. Conjunctivae normal. NECK: JVD not raised. Mass not palpable. RESPIRATORY: Effort normal. Lungs are clear. CARDIOVASCULAR: First and second sounds normal. No edema. ABDOMEN: Soft, nontender. Liver and spleen not palpable. PSYCHIATRY: Answering questions appropriately. INVESTIGATIONS: Accu-Cheks are noted. ASSESSMENT: 1. Proximal myopathy cause unclear, causing falls, could be secondary to diabetes mellitus type 2. 2. Automatic implantable cardioverter defibrillator. 3. Chronic congestive heart failure from systolic dysfunction and underlying coronary artery disease. 4. Paroxysmal atrial fibrillation. 5. Diabetes mellitus type 2 on oral hypoglycemic. 6. Hyperlipidemia. 7. Essential hypertension. 8. Gait dysfunction. 9. Nephrolithiasis, asymptomatic. 10. Idiopathic Parkinson's disease, chronic. 11. Coronary artery disease with prior history of stent and bypass. 12. Dementia associated with Parkinson's disease. 13. Gait dysfunction at baseline uses a walker. 14. Possible normal pressure hydrocephalus, idiopathic. PLAN: Continue current medication and treatment plan. Patient awaiting rehab placement.
[2016-04-17] MEDS: LEVOTHYROXINE 25 MCG TAB PO SCH (06:16)
[2016-04-17 07:42] LABS: Glucose,Whole Blood 120 mg/dL (75-99)
[2016-04-17 07:49] VITALS: BP 153/92; PULSE 61; RESP 18; TEMP 98
[2016-04-17] MEDS: METOPROLOL SUCCINATE (ER) 50 MG TAB.ER.24H PO SCH (08:21)
[2016-04-17] MEDS: FINASTERIDE 5 MG TAB PO SCH (08:21)
[2016-04-17] MEDS: ASPIRIN 81 MG CHEW PO SCH (08:21)
[2016-04-17] MEDS: CARBIDOPA-LEVODOPA ER 50-200MG 1 EACH TABLET.ER PO SCH (08:21)
[2016-04-17] MEDS: ENOXAPARIN 40 MG/0.4 ML SYRINGE SQ SCH (08:21)
[2016-04-17] MEDS: AMIODARONE 200 MG TAB PO SCH (08:21)
[2016-04-17] MEDS: ATORVASTATIN 40 MG TAB PO SCH (08:21)
[2016-04-17] MEDS: LISINOPRIL 20 MG TAB PO SCH (08:21)
[2016-04-17] MEDS: DONEPEZIL 5 MG TAB PO SCH (08:21)
[2016-04-17] MEDS: INSULIN LISPRO (humaLOG) 300 UNIT/3 ML VIAL SQ SCH ×2 (08:22→12:13)
[2016-04-17] MEDS: LINAGLIPTIN 5 MG TABLET PO SCH (08:22)
[2016-04-17 11:54] LABS: Glucose,Whole Blood 163 mg/dL (75-99)
--- NOTE | 2016-04-17 14:28 | DS ---
DATE OF ADMISSION: 04/11/2016 DATE OF DISCHARGE: 04/17/2016 FINAL DIAGNOSES: 1. Exacerbation of Parkinson's, idiopathic Parkinson's disorder leading to falls. 2. Proximal myopathy, could be from diabetes mellitus type 2. 3. Automatic implantable cardioverter defibrillator, chronic. 4. Chronic congestive heart failure from systolic dysfunction from underlying coronary artery disease. 5. Paroxysmal atrial fibrillation. 6. Diabetes mellitus type 2 on oral hypoglycemic. 7. Hyperlipidemia. 8. Essential hypertension. 9. Gait dysfunction. 10. Nephrolithiasis, asymptomatic. 11. Coronary artery disease with prior history of stent and bypass. 12. Dementia associated with Parkinson's disease. 13. Gait dysfunction, at her baseline uses a walker, getting worse. 14. Possible/questionable normal pressure hydrocephalus. ( ) HOSPITAL COURSE: This patient presented with multiple falls. There is a question about normal pressure hydrocephalus. Patient's Parkinson medications were adjusted and actually patient was doing better and that may be the cause of his falls. Patient also looks to have proximal. On examination, lungs are clear. CARDIOVASCULAR: First and second sounds are normal. CT scan of the brain showed some chronic changes. CONSULTATIONS: Dr. Abel Santoro from Neurology. Care had been discussed with the patient's family, that are 2 sons. DISCHARGE MEDICATIONS: 1. Avodart 0.5 mg p.o. daily. 2. Tradjenta 5 mg p.o. daily. 3. Toprol-XL 50 mg p.o. daily. 4. Aspirin 81 mg p.o. b.i.d. 5. Lipitor 40 mg p.o. daily. 6. Zestril 20 mg p.o. daily. 7. Cordarone 200 mg p.o. daily. 8. Synthroid 25 mcg p.o. daily. 9. Exelon 4.5 mg p.o. daily. 10. Tylenol 650 mg q.6 p.r.n. 11. Sinemet CR 50/200 one tablet p.o. t.i.d. DISPOSITION: Janee. Follow with Dr. Poole. Patient is to follow up with Dr. Santoro in 3 weeks.
== END 2016-04-17 14:30 | DRG 57 ==
LOC: EC 11:21 → 4MS4W 15:24
PROVIDERS: ADMIT Hospitalist; ATTEND Hospitalist
DX: G20 Parkinson's disease (principal); G91.2 (Idiopathic) normal pressure hydrocephalus; I50.22 Chronic systolic (congestive) heart failure; E11.65 Type 2 diabetes mellitus with hyperglycemia; S09.90XA Unspecified injury of head, initial encounter; I11.0 Hypertensive heart disease with heart failure; G93.89 Other specified disorders of brain; I48.0 Paroxysmal atrial fibrillation; G72.89 Other specified myopathies; F01.50 Vascular dementia, unspecified severity, without behavioral disturbance, psychotic disturbance, mood disturbance, and anxiety; F02.80 Dementia in other diseases classified elsewhere, unspecified severity, without behavioral disturbance, psychotic disturbance, mood disturbance, and anxiety; E78.5 Hyperlipidemia, unspecified; H91.90 Unspecified hearing loss, unspecified ear; I25.10 Atherosclerotic heart disease of native coronary artery without angina pectoris; I25.2 Old myocardial infarction; I25.5 Ischemic cardiomyopathy; M19.90 Unspecified osteoarthritis, unspecified site; N20.0 Calculus of kidney; N40.0 Benign prostatic hyperplasia without lower urinary tract symptoms; R29.6 Repeated falls; S80.211A Abrasion, right knee, initial encounter; S70.211A Abrasion, right hip, initial encounter; K64.9 Unspecified hemorrhoids; R26.9 Unspecified abnormalities of gait and mobility; Z87.442 Personal history of urinary calculi; Z87.891 Personal history of nicotine dependence; Z95.1 Presence of aortocoronary bypass graft; Z95.5 Presence of coronary angioplasty implant and graft; Z95.810 Presence of automatic (implantable) cardiac defibrillator; Z79.82 Long term (current) use of aspirin; Z79.899 Other long term (current) drug therapy; W18.30XA Fall on same level, unspecified, initial encounter; Y92.003 Bedroom of unspecified non-institutional (private) residence as the place of occurrence of the external cause
CPT/HCPCS: 36415; 51701; 70450; 71020; 80053; 81001; 82550; 82553; 84443; 84484; 85025; 85610; 85730; 87040; 87086; 93005; 96360; 96361; 99285

== ENCOUNTER → 2016-11-15 | Outpatient (CLI) | payer MEDICARE, OTHER ==
[2016-11-15 09:14] LABS: ALT 33 U/L (21-72); AST 24 U/L (17-59); Alkaline Phosphatase 121 U/L (38-126); Anion Gap 11 mmol/L; Blood Urea Nitrogen 20 mg/dL (9-20); Calcium 9.4 mg/dL (8.4-10.2); Carbon Dioxide 28 mmol/L (22-30); Chloride 104 mmol/L (98-107); Cholesterol 139 mg/dL (<200); Glucose 133 mg/dL (74-99); HDL Cholesterol 47 mg/dL (40-60); Non-African American GFR(MDRD) >60 (>60 ml/min/1.73 sqM); Potassium 4.3 mmol/L (3.5-5.1); Sodium 143 mmol/L (137-145); Total Bilirubin 0.9 mg/dL (0.2-1.3); Total Protein 7.2 g/dL (6.3-8.2)
== END | disposition home or self-care (01) ==
LOC: LABWHC1 08:19
PROVIDERS: ATTEND Internal Medicine Interventional Cardiology
DX: E78.2 Mixed hyperlipidemia (principal)
CPT/HCPCS: 36415; 80053; 80061

== ENCOUNTER 2017-09-15 10:20 | Inpatient (IN) | payer MEDICARE, OTHER ==
[2017-09-15 11:24] LABS: Basophils % (A) 0 %; Eosinophils # (A) 0.2 k/uL (0-0.7); Eosinophils % (A) 2 %; HCT 42.7 % (39.0-53.0); HGB 14.7 gm/dL (13.0-17.5); Lymphocytes # (A) 0.5 k/uL (1.0-4.8); Lymphocytes % (A) 5 %; MCH 29.9 pg (25.0-35.0); MCHC 34.5 g/dL (31.0-37.0); MCV 86.5 fL (80.0-100.0); Mean Platelet Volume 7.9; Monocytes # (A) 0.6 k/uL (0-1.0); Monocytes % (A) 6 %; Neutrophils # (A) 9.7 k/uL (1.3-7.7); Neutrophils % (A) 87 %; Platelet Count 180 k/uL (150-450); RBC 4.93 m/uL (4.30-5.90); RDW 13.3 % (11.5-15.5)
[2017-09-15 11:34] LABS: Albumin 4.3 g/dL (3.5-5.0); Calcium 9.3 mg/dL (8.4-10.2); Potassium 4.7 mmol/L (3.5-5.1); Total Bilirubin 1.2 mg/dL (0.2-1.3); Total Protein 6.9 g/dL (6.3-8.2)
--- NOTE | 2017-09-15 11:35 | ED ---
General Adult HPI - General Chief complaint: Neuro Symptoms/Deficit Stated complaint: Fall Time Seen by Provider: 09/15/17 10:45 Source: patient, family, RN notes reviewed, old records reviewed Mode of arrival: wheelchair Limitations: no limitations - History of Present Illness Initial comments: 77-year-old male brought in for confusion and left-sided weakness. Patient was found in his bathroom floor this morning. He had fallen around 11 PM yesterday evening which was 12 hours prior to arrival. Patient believes he did trip and fall but was unable to get up. Denies any palpitations, denies chest pain or dyspnea. He has no pain complaints the time my evaluation. He doesn't believe he hit his head or loss consciousness. Although he does have a periorbital ecchymosis on the left. Patient has history of Parkinson's and unsteady gait at baseline. He has also had CVA and TIA in the past. No reported abdominal pain or nausea vomiting. No reported chest pain. - Related Data Home Medications Medication Instructions Recorded Confirmed Dutasteride [Avodart] 0.5 mg PO DAILY 11/19/14 09/15/17 Linagliptin [Tradjenta] 5 mg PO DAILY 11/19/14 09/15/17 Metoprolol Succinate [Toprol XL] 50 mg PO DAILY 11/19/14 09/15/17 Aspirin 81 mg PO BID 09/13/15 09/15/17 Atorvastatin [Lipitor] 40 mg PO DAILY 09/13/15 09/15/17 Lisinopril [Zestril] 20 mg PO DAILY 09/13/15 09/15/17 Amiodarone [Cordarone] 200 mg PO DAILY 04/11/16 09/15/17 Levothyroxine Sodium [Synthroid] 25 mcg PO DAILY 04/11/16 09/15/17 Previous Rx's Medication Instructions Recorded Acetaminophen Tab [Tylenol] 650 mg PO Q6HR PRN #0 tab 04/17/16 Carbidopa-Levodopa ER 50-200Mg 1 each PO TID tablet.er 04/17/16 [Sinemet CR 50-200 mg] Allergies Allergy/AdvReac Type Severity Reaction Status Date / Time No Known Allergies Allergy Verified 09/15/17 10:42 Review of Systems ROS Statement: Those systems with pertinent positive or pertinent negative responses have been documented in the HPI. ROS Other: All systems not noted in ROS Statement are negative. Past Medical History Past Medical History: Coronary Artery Disease (CAD), Chest Pain / Angina, Heart Failure, CVA/TIA, Diabetes Mellitus, Hearing Disorder / Deafness, Hyperlipidemia , Hypertension, Myocardial Infarction ([place]), Prostate Disorder, Renal Disease Additional Past Medical History / Comment(s): CVA 05/2011 and 11/2012,5-20-16 affected rt side, TIA's, parkinsons, ischemic cardiomyopathy with L ventricular ejection fx < 30% ( has AICD), NIDDM type II, BPH, DJD, gait dysfunction/falls , nephrolithiasis, hemorrhiods.falls(at [facility] fell hit head but did'nt seek tx and has fallen since),kidney stones. svt,paroxysmal afib, djd Last Myocardial Infarction Date:: 2004 History of Any Multi-Drug Resistant Organisms: None Reported Past Surgical History: Coronary Bypass/CABG, Heart Catheterization With Stent, Hernia Repair, Pacemaker Additional Past Surgical History / Comment(s): CABG-4 vessel in 2005, AICD 2004 and gen change 11/23/14, bilateral lens implants, lasik eye surgery, L hernia repair Past Anesthesia/Blood Transfusion Reactions: No Reported Reaction Date of Last Stent Placement:: unkn Type of Cardiac Device: AICD Device Placement Date:: original 2004 with gen change 10/2014 Past Psychological History: No Psychological Hx Reported Smoking Status: Former smoker Past Alcohol Use History: None Reported Past Drug Use History: None Reported - Past Family History Father Family Medical History: No Reported History Additional Family Medical History / Comment(s): Father was healthy and at age 84 yrs. Mother Family Medical History: No Reported History Additional Family Medical History / Comment(s): Mother was healthy and at age 82 or 83. General Exam Limitations: no limitations General appearance: alert, in no apparent distress Head exam: Present: normocephalic. Absent: atraumatic (Mild left periorbital ecchymosis and lid edema) Eye exam: Present: normal appearance, PERRL, EOMI, periorbital swelling ENT exam: Present: mucous membranes dry Neck exam: Present: normal inspection. Absent: tenderness, meningismus Respiratory exam: Present: normal lung sounds bilaterally. Absent: respiratory distress, wheezes Cardiovascular Exam: Present: regular rate, normal rhythm GI/Abdominal exam: Present: soft. Absent: distended, tenderness, guarding Extremities exam: Present: joint swelling (Ecchymosis and mild swelling in the left dorsal hand. Skin abrasion on the left lateral knee.) Neurological exam: Present: alert, oriented X3, motor sensory deficit (Patient has left lower extremity drift, NIH of 1. This is reported as new according to son) Psychiatric exam: Present: normal affect, normal mood Skin exam: Present: warm, dry, intact. Absent: cyanosis, diaphoretic Course Vital Signs 09/15/17 09/15/17 10:39 11:41 Temperature 98.7 F Pulse Rate 68 73 Respiratory 18 18 Rate Blood Pressure 103/70 134/71 O2 Sat by Pulse 96 96 Oximetry EKG Findings - EKG Comments: EKG Findings:: EKG: Sinus rhythm with first-degree AV block, left axis deviation , no ST segment elevation or depression. Rate of 77, [place] interval 220, QRS duration 122, QTC 522 Medical Decision Making - Medical Decision Making 77-year-old male with fall and prolonged downtime. Patient has no significant complaints at the time my evaluation. EKG shows normal sinus with no definitive signs of acute ischemia. Patient has no chest pain or dyspnea. Laboratory studies reveal mild elevated white blood cell count 11, hemoglobin is stable 14.7, creatinine kinase is elevated 2200. Troponin is elevated at 0.678, EKG is negative for any acute signs of ischemia and there is no chest pain by history or currently. This level will be trended. Patient is given an aspirin. Her analysis is positive for 1+ ketones, this combined with the elevated CK patient will be placed on gentle IV hydration. Head CT is obtained negative for renal hemorrhage, there is diffuse atrophy. Chest x-ray shows some atelectasis with no focal pneumonia. X-ray of his hand is negative for fracture dislocation, x-ray of the pelvis is negative for any acute bony abnormality. Patient does have some worsening left-sided lower extremity weakness with an NIH of 1 for drift. He will be given an aspirin. He is well outside the window if this was a TIA or stroke. He has Parkinson's which may be contributing to this weakness. Neurology will be asked to evaluate the patient. - Lab Data Result diagrams: 09/15/17 11:12 09/15/17 11:12 Lab Results 09/15/17 09/15/17 09/15/17 Range/Units 11:12 11:12 11:12 WBC 11.0 H (3.8-10.6) k/uL RBC 4.93 (4.30-5.90) m/uL Hgb 14.7 (13.0-17.5) gm/dL Hct 42.7 (39.0-53.0) % MCV 86.5 (80.0-100.0) fL MCH 29.9 (25.0-35.0) pg MCHC 34.5 (31.0-37.0) g/dL RDW 13.3 (11.5-15.5) % Plt Count 180 (150-450) k/uL Neutrophils % 87 % Lymphocytes % 5 % Monocytes % 6 % Eosinophils % 2 % Basophils % 0 % Neutrophils # 9.7 H (1.3-7.7) k/uL Lymphocytes # 0.5 L (1.0-4.8) k/uL Monocytes # 0.6 (0-1.0) k/uL Eosinophils # 0.2 (0-0.7) k/uL Basophils # 0.0 (0-0.2) k/uL PT (9.0-12.0) sec INR (<1.2) APTT (22.0-30.0) sec Sodium 142 (137-145) mmol/L Potassium 4.7 (3.5-5.1) mmol/L Chloride 105 (98-107) mmol/L Carbon Dioxide 20 L (22-30) mmol/L Anion Gap 17 mmol/L BUN 28 H (9-20) mg/dL Creatinine 1.20 (0.66-1.25) mg/dL Est GFR (CKD-EPI)AfAm 68 (>60 ml/min/1.73 sqM) Est GFR (CKD-EPI)NonAf 59 (>60 ml/min/1.73 sqM) Glucose 188 H (74-99) mg/dL Calcium 9.3 (8.4-10.2) mg/dL Total Bilirubin 1.2 (0.2-1.3) mg/dL AST 51 (17-59) U/L ALT 32 (21-72) U/L Alkaline Phosphatase 107 (38-126) U/L Creatine Kinase 2199 H (55-170) U/L Total Creatine Kinase 2199 H (55-170) U/L CK-MB (CK-2) 17.8 H* (0.0-2.4) ng/mL CK-MB (CK-2) Rel Index Troponin I 0.678 H* (0.000-0.034) ng/mL Total Protein 6.9 (6.3-8.2) g/dL Albumin 4.3 (3.5-5.0) g/dL Urine Color Urine Appearance (Clear) Urine pH (5.0-8.0) Ur Specific [place] (1.001-1.035) Urine Protein (Negative) Urine Glucose (UA) (Negative) Urine Ketones (Negative) Urine Blood (Negative) Urine Nitrite (Negative) Urine Bilirubin (Negative) Urine Urobilinogen (<2.0) mg/dL Ur Leukocyte Esterase (Negative) Urine RBC (0-5) /hpf Urine WBC (0-5) /hpf Ur Squamous Epith Cells (0-4) /hpf Hyaline Casts (0-2) /lpf Urine Mucus (None) /hpf 09/15/17 09/15/17 Range/Units 11:12 12:13 WBC (3.8-10.6) k/uL RBC (4.30-5.90) m/uL Hgb (13.0-17.5) gm/dL Hct (39.0-53.0) % MCV (80.0-100.0) fL MCH (25.0-35.0) pg MCHC (31.0-37.0) g/dL RDW (11.5-15.5) % Plt Count (150-450) k/uL Neutrophils % % Lymphocytes % % Monocytes % % Eosinophils % % Basophils % % Neutrophils # (1.3-7.7) k/uL Lymphocytes # (1.0-4.8) k/uL Monocytes # (0-1.0) k/uL Eosinophils # (0-0.7) k/uL Basophils # (0-0.2) k/uL PT 10.8 (9.0-12.0) sec INR 1.1 (<1.2) APTT 23.0 (22.0-30.0) sec Sodium (137-145) mmol/L Potassium (3.5-5.1) mmol/L Chloride (98-107) mmol/L Carbon Dioxide (22-30) mmol/L Anion Gap mmol/L BUN (9-20) mg/dL Creatinine (0.66-1.25) mg/dL Est GFR (CKD-EPI)AfAm (>60 ml/min/1.73 sqM) Est GFR (CKD-EPI)NonAf (>60 ml/min/1.73 sqM) Glucose (74-99) mg/dL Calcium (8.4-10.2) mg/dL Total Bilirubin (0.2-1.3) mg/dL AST (17-59) U/L ALT (21-72) U/L Alkaline Phosphatase (38-126) U/L Creatine Kinase (55-170) U/L Total Creatine Kinase (55-170) U/L CK-MB (CK-2) (0.0-2.4) ng/mL CK-MB (CK-2) Rel Index Troponin I (0.000-0.034) ng/mL Total Protein (6.3-8.2) g/dL Albumin (3.5-5.0) g/dL Urine Color Yellow Urine Appearance Clear (Clear) Urine pH 5.0 (5.0-8.0) Ur Specific [place] 1.023 (1.001-1.035) Urine Protein 1+ H (Negative) Urine Glucose (UA) 1+ H (Negative) Urine Ketones 1+ H (Negative) Urine Blood Moderate H (Negative) Urine Nitrite Negative (Negative) Urine Bilirubin Negative (Negative) Urine Urobilinogen <2.0 (<2.0) mg/dL Ur Leukocyte Esterase Negative (Negative) Urine RBC 3 (0-5) /hpf Urine WBC 1 (0-5) /hpf Ur Squamous Epith Cells <1 (0-4) /hpf Hyaline Casts 5 H (0-2) /lpf Urine Mucus Rare H (None) /hpf Disposition Clinical Impression: Elevated troponin, Recurrent falls while walking, Parkinson disease, Elevated CPK Disposition: ADMITTED IP TO THIS [facility] Condition: Fair Is patient prescribed a controlled substance at d/c from ED?: No Referrals: Martín Julien MD [Primary Care Provider] - 1-2 days Decision to Admit Reason: Admit from EC Decision Date: 09/15/17 Decision Time: 13:10
[2017-09-15 11:38] LABS: INR 1.1 (<1.2); Prothrombin Time 10.8 sec (9.0-12.0)
--- NOTE | 2017-09-15 12:02 | CT ---
EXAMINATION TYPE: CT brain justen wo con DATE OF EXAM: 09/15/2017 COMPARISON: 04/11/2016 HISTORY: Fall CT DLP: 1872.3 mGycm Automated exposure control for dose reduction was used. TECHNIQUE: CT scan of the head and cervical spine are performed without contrast. FINDINGS: Changes of chronic sinusitis are noted. Area of low attenuation within the right frontal lobe is stab le compatible with remote ischemia. Central dilation of ventricular system appears marked and also st able. Periventricular low attenuation is nonspecific but most typical remote microvascular ischemia. Area of abnormal signal in the left basal ganglia and centrum semiovale is suggestive of focally danica te ischemia. More confluent density within the left frontal lobe. This also is stable suggestive of r emote ischemia. Assessment spinal canal is limited due to noncontrast technique. There is multilevel severe facet art hropathy and degenerative disc disease with multilevel foraminal encroachment. Follow-up MRI recommen ded. IMPRESSION: 1. There is no acute fracture or dislocation evident in the cervical spine. Multilevel degenerative d isc disease and facet arthropathy 2. No acute intracranial hemorrhage, mass effect, or midline shift is seen. There is significant vent ricular dilation correlate for normal pressure hydrocephalus versus hydrocephalus. Degenerative and r emote ischemic changes are seen as discussed above.
[2017-09-15 12:08] LABS: Creatine Kinase MB 17.8 ng/mL (0.0-2.4); Troponin I 0.678 ng/mL (0.000-0.034)
--- NOTE | 2017-09-15 12:11 | XR ---
EXAMINATION TYPE: XR chest 2V DATE OF EXAM: 09/15/2017 COMPARISON: 04/11/2016 TECHNIQUE: PA and lateral views submitted. HISTORY: Altered mental status FINDINGS: The lungs are clear and there is no pneumothorax, pleural effusion, or focal pneumonia. Postoperati ve change and cardiac device seen. Arthropathy of the shoulders. Hypertrophic and degenerative change of the spine. Subsegmental changes at the lung base likely related to superimposed structures or ate lectasis. IMPRESSION: 1. Basilar subsegmental changes. Atelectasis favored.
--- NOTE | 2017-09-15 12:12 | XR ---
EXAMINATION TYPE: XR pelvis AP view DATE OF EXAM: 09/15/2017 COMPARISON: NONE HISTORY: Pain The osseous structures are intact and the joint spaces are preserved. No acute fracture is seen. Vi sualized bowel gas pattern is nonspecific. Arthropathy of the hip joints. Hypertrophic and degenerat glenn change of the spine. Sclerosis involving the SI joint on the left suggestive of sacroiliitis. Vas cular calcifications noted. IMPRESSION: 1. No acute fracture.
--- NOTE | 2017-09-15 12:14 | XR ---
EXAMINATION TYPE: XR hand complete LT DATE OF EXAM: 09/15/2017 COMPARISON: NONE HISTORY: Pain TECHNIQUE: Three views are submitted. FINDINGS: The osseous structures are intact. There is severe arthropathy of the DIP joints with arthropathy of the PIP and MCP joints of all digits. Severe arthropathy of the first carpal metacarpal joint.. IMPRESSION: 1. No definite acute fracture or dislocation if symptoms persist, follow-up study in 7 to 10 days wo uld be suggested
[2017-09-15 12:25] LABS: Appearance,Urine Clear (Clear); Bilirubin,Urine Negative (Negative); Blood,Urine Moderate (Negative); Color,Urine Yellow; Glucose,Urine (UA) 1+ (Negative); Hyaline Casts,Urine 5 /lpf (0-2); Ketones,Urine 1+ (Negative); Leukocyte Esterase,Urine Negative (Negative); Mucus,Urine Rare /hpf; Nitrite,Urine Negative (Negative); Protein,Urine 1+ (Negative); RBC,Urine 3 /hpf (0-5); Specific Gravity,Urine 1.023 (1.001-1.035); Squamous Epithelial Cell,Urine <1 /hpf (0-4); Urobilinogen,Urine <2.0 mg/dL (<2.0); WBC,Urine 1 /hpf (0-5)
[2017-09-15] MEDS ORDERED: ASPIRIN 325 MG TAB PO STA (12:40)
[2017-09-15] MEDS ORDERED: ACETAMINOPHEN TAB 325 MG TAB PO PRN (13:02)
[2017-09-15] MEDS ORDERED: NALOXONE 0.4 MG/ML 1 ML VIAL IV PRN (13:02)
[2017-09-15] MEDS: SODIUM CHLORIDE 0.9% 1,000 ML IV SCH (13:28)
[2017-09-15 14:51] VITALS: BMI 29.9
[2017-09-15 16:29] LABS: Glucose,Whole Blood 190 mg/dL (75-99)
[2017-09-15] MEDS: CARBIDOPA-LEVODOPA ER 50-200MG 1 EACH TABLET.ER PO SCH ×2 (17:56→21:52)
[2017-09-15] MEDS ORDERED: ONDANSETRON 4 MG/2 ML VIAL IVP PRN (18:16)
[2017-09-15] MEDS ORDERED: ALPRAZolam 0.25 MG TAB PO PRN (18:16)
[2017-09-15] MEDS ORDERED: MAGNESIUM HYDROXIDE 2,400 MG/10 ML CUP PO PRN (18:16)
[2017-09-15] MEDS ORDERED: LACTULOSE 20 GM/30 ML CUP PO PRN (18:16)
[2017-09-15] MEDS ORDERED: CALCIUM CARBONATE 500 MG CHEWABLE PO PRN (18:16)
[2017-09-15 18:42] LABS: Creatine Kinase MB 25.5 ng/mL (0.0-2.4)
[2017-09-15 18:43] LABS: Troponin I 0.655 ng/mL (0.000-0.034)
[2017-09-15] MEDS: ENOXAPARIN 40 MG/0.4 ML SYRINGE SQ SCH (20:28)
[2017-09-15 20:44] LABS: Glucose,Whole Blood 155 mg/dL (75-99)
[2017-09-15] MEDS ORDERED: MELATONIN 3 MG TABLET PO PRN (21:00)
[2017-09-15] MEDS ORDERED: ASPIRIN 81 MG PO SCH (21:00)
[2017-09-16 00:21] LABS: Creatine Kinase MB 17.9 ng/mL (0.0-2.4)
[2017-09-16 00:22] LABS: Troponin I 0.443 ng/mL (0.000-0.034)
--- NOTE | 2017-09-16 05:45 | HP ---
HISTORY AND PHYSICAL DATE OF ADMISSION: 09/15/2017 DATE OF SERVICE: 09/15/2017 PRESENTING COMPLAINT: Found on the floor. HISTORY OF PRESENTING COMPLAINT: This is a very pleasant 77-year-old patient. Chronic stable medical conditions include Parkinson disease, AICD, chronic CHF, atrial fibrillation, diabetes type 2, hyperlipidemia, hypertension, coronary artery disease, some dementia, gait dysfunction at the baseline. The patient was last seen by his son about 12 hours prior to presentation. Son had come this morning to garbage pick up man the father for Father's Day and the patient was found on the floor somewhat confused. The patient was found to have some left-sided weakness and brought into the ER for the same. The patient thinks he must have tripped. The patient was noticed to have some facial asymmetry. No change in his speech. No change in vision and some left-sided weakness, more so in the left arm. The patient is not appreciative of the same findings. The patient has some bruising. No fracture was found in the ER. REVIEW OF SYSTEMS: CONSTITUTIONAL: Tired. HEENT: None. RESPIRATORY: None. CARDIOVASCULAR: None. GASTROINTESTINAL: None. GENITOURINARY: None. MUSCULOSKELETAL: Aches and pains in some joints. DERMATOLOGICAL: Superficial bruising. HEMATOLOGICAL: None. LYMPHATICS: None. PSYCHIATRY: Slightly forgetful. NEUROLOGICAL: A bit unsteady on his gait and some left-sided weakness. PAST MEDICAL HISTORY: Past medical history of Parkinson disease, AICD, CHF, atrial fibrillation, diabetes, hyperlipidemia, hypertension, nephrolithiasis, coronary artery disease with stent and bypass, dementia with Parkinson disease, gait dysfunction, possible normal-pressure hydrocephalus. PAST SURGICAL HISTORY: Coronary artery bypass, cardiac cath with stent, hernia repair, coronary bypass 2005, AICD 2004, bilateral lens implant, LASIK eye surgery, left hernia repair. SOCIAL HISTORY: May use a cane and a walker. Gets Meals on Wheels No smoking or alcohol. FAMILY HISTORY: Unremarkable. HOME MEDICATIONS: 1. Toprol XL 50 mg a day. 2. Zestril 20 mg a day. 3. Tradjenta 5 mg p.o. daily. 4. Synthroid 25 mcg a day. 5. Lasix 20 mg a day. 6. Avodart 0.5 mg p.o. daily. 7. Sinemet CR 50/200 one tablet p.o. t.i.d. 8. Lipitor 40 mg p.o. daily. 9. Aspirin 81 mg p.o. b.i.d. 10.Cordarone 100 mg p.o. daily. 11.Tylenol 650 mg q.6 p.r.n. ALLERGIES: None. PHYSICAL EXAMINATION: On examination, temperature 98.7, pulse 68, respiration 18, blood pressure 103/70, pulse ox 96% on room air. GENERAL APPEARANCE: Average built, BMI 30, sitting up in bed, tired appearing, awake. EYES: Pupils equal. Conjunctivae normal. HENT: External appearance of nose and ears normal. Oral cavity normal. NECK: JVD not raised. Mass not palpable. RESPIRATORY: Effort normal. Lungs are clear. CARDIOVASCULAR: First and second sounds normal. No edema. ABDOMEN: Soft, nontender. Liver and spleen not palpable. LYMPHATICS: No lymph nodes palpable in neck or axillae. PSYCHIATRY: Patient able to answer simple questions. Mood and affect normal. NEUROLOGICAL: Pupils equal. Mouth slightly pulled to the left side. Power in the left arm is 4/5, left leg is 4/5. Sensation grossly appear intact. INVESTIGATIONS: White count 11, hemoglobin 14.7. Potassium 4.7. BUN 28, creatinine 1.20. Troponin 0.678, 0.655. CPK 2199, 4051. EKG nonspecific changes. ASSESSMENT: 1. Possible acute stroke in the right middle cerebral artery territory with some left- sided weakness and facial asymmetry. 2. Acute rhabdomyolysis, mild. 3. Troponin leak in the setting of some EKG changes in a patient with known coronary artery disease. 4. Parkinson disease. 5. Automated implantable cardioverter-defibrillator. 6. Chronic congestive heart failure, systolic dysfunction, ejection fraction not known. 7. Paroxysmal atrial fibrillation currently in sinus rhythm. 8. Diabetes mellitus type 2. 9. Hyperlipidemia. 10.Essential hypertension. 11.Gait dysfunction. 12.Coronary artery disease, prior history of stent and bypass. 13.Mild dementia associated with Parkinson disease. 14.Gait dysfunction at the baseline, uses a walker or a cane. 15.Questionable history of normal-pressure hydrocephalus. PLAN: Patient will have neuro checks. Home medications are resumed. Will get a Neurology and Cardiology consultation. Care was discussed with the patient. Patient's son is presently not present. Fall precautions are in place. MMODL / IJN: [id number] /
[2017-09-16 06:10] LABS: Glucose,Whole Blood 132 mg/dL (75-99)
[2017-09-16] MEDS: LEVOTHYROXINE 25 MCG TAB PO SCH (06:17)
[2017-09-16] MEDS: SODIUM CHLORIDE 0.9% 1,000 ML IV SCH ×3 (06:17→20:05)
[2017-09-16] MEDS: INSULIN ASPART 100 UNIT/ML 1 ML 10 ML VIAL SQ SCH ×3 (06:17→17:03)
--- NOTE | 2017-09-16 08:17 | P.CRDCN ---
History of Present Illness Consult date: 09/16/17 Requesting physician: James Espinoza Reason for Consult (text): Abnormal troponins Chief complaint: Fall History of present illness: This is a pleasant 77-year-old gentleman who follows regularly with Dr. Green in the office. He has a known history of coronary artery disease with prior bypass surgery, prior stent placement, ischemic cardio myopathy with prior AICD implantation, hypertension, hyperlipidemia, Parkinson's, CVA, paroxysmal atrial fibrillation. He presents to the hospital after experiencing a fall at home. According to the patient, he had tripped in his bathroom and fell down to the ground, he states he was on the ground for approximately 10 hours. His son showed up in the morning, and found him there. He denies having any dizziness or lightheadedness, no palpitations, no chest discomfort. According to the patient he did not lose consciousness. He also states that the day prior to this occurring he also had an episode where he fell. He missed discharged where a pillow was, and states that he fell onto a table and chairs breaking them. On this episode he again denied having any syncope. Overall, the patient states that he's been feeling quite well, he denies any recent chest discomfort, no dizziness or lightheadedness. His blood pressure on arrival here was 103/70, heart rate in the 60s, 96% on room air he is afebrile. Let pressure this morning 100/59, heart rate in the 60s, low-grade temperature of 99.0, 95% on 2 L of oxygen. EKG on arrival here shows a normal sinus rhythm with a first-degree AV block, left axis deviation, inferior Q waves. Chest x-ray shows basilar subsegmental changes, atelectasis is favored. Hand x-ray did not reveal any definite acute fracture or dislocation. CAT scan did not reveal any acute fracture or dislocation of the spine, no acute intracranial hemorrhage or mass effect or midline shift is seen. There is significant ventricular dilatation [place] for normal pressure hydrocephalus versus hydrocephalus. Degenerative and remote ischemic changes are seen. X- ray of the pelvis does not reveal any acute fracture. White blood cell count 11 , hemoglobin 14.7, platelet count 180. Sodium 142, potassium 4.7, BUN 28 and creatinine 1.2. CK 2199, 4051, 2899. MB 17.8, 25.5, 17.9. Troponins 0.67, 0.65, 0.44. At the time of my examination this morning, patient states that he slept well last night, overall feels well this morning. Past Medical History Past Medical History: Coronary Artery Disease (CAD), Chest Pain / Angina, Heart Failure, CVA/TIA, Diabetes Mellitus, Hearing Disorder / Deafness, Hyperlipidemia , Hypertension, Myocardial Infarction ([place]), Prostate Disorder Additional Past Medical History / Comment(s): CVA 05/2011 and 11/2012,5- affected rt side, TIA's, parkinsons, ischemic cardiomyopathy with L ventricular ejection fx < 30% ( has AICD), NIDDM type II, BPH, DJD, gait dysfunction/falls , nephrolithiasis, hemorrhiods.falls(at [facility] fell hit head but did'nt seek tx and has fallen since). svt, paroxysmal afib, djd Last Myocardial Infarction Date:: 2004 History of Any Multi-Drug Resistant Organisms: None Reported Past Surgical History: Coronary Bypass/CABG, Heart Catheterization With Stent, Hernia Repair, Pacemaker Additional Past Surgical History / Comment(s): CABG-4 vessel in 2005, AICD 2004 and gen change 11/23/14, bilateral lens implants, lasik eye surgery, L hernia repair Past Anesthesia/Blood Transfusion Reactions: No Reported Reaction Date of Last Stent Placement:: 2007 Type of Cardiac Device: AICD Device Placement Date:: original 2004 with gen change 10/2014 Past Psychological History: No Psychological Hx Reported Additional Psychological History / Comment(s): He has a cane and walker. lives in own home-no longer drives,stated gets meals on wheels Smoking Status: Never smoker Past Alcohol Use History: None Reported Additional Past Alcohol Use History / Comment(s): Pt started smoking in 1989 and quit in 1998. Past Drug Use History: None Reported - Past Family History Father Family Medical History: No Reported History Additional Family Medical History / Comment(s): Father was healthy and at age 84 yrs. Mother Family Medical History: No Reported History Additional Family Medical History / Comment(s): Mother was healthy and at age 82 or 83. Medications and Allergies Home Medications Medication Instructions Recorded Confirmed Type Dutasteride [Avodart] 0.5 mg PO DAILY 11/19/14 09/15/17 History Linagliptin [Tradjenta] 5 mg PO DAILY 11/19/14 09/15/17 History Metoprolol Succinate [Toprol XL] 50 mg PO DAILY 11/19/14 09/15/17 History Aspirin 81 mg PO BID 09/13/15 09/15/17 History Atorvastatin [Lipitor] 40 mg PO DAILY 09/13/15 09/15/17 History Lisinopril [Zestril] 20 mg PO DAILY 09/13/15 09/15/17 History Amiodarone [Cordarone] 100 mg PO DAILY 04/11/16 09/15/17 History Levothyroxine Sodium [Synthroid] 25 mcg PO DAILY 04/11/16 09/15/17 History Acetaminophen Tab [Tylenol] 650 mg PO Q6HR PRN #0 tab 04/17/16 09/15/17 Rx Carbidopa-Levodopa ER 50-200Mg 1 each PO TID tablet.er 04/17/16 09/15/17 Rx [Sinemet CR 50-200 mg] Furosemide [Lasix] 20 mg PO DAILY 09/15/17 09/15/17 History Allergies Allergy/AdvReac Type Severity Reaction Status Date / Time No Known Allergies Allergy Verified 09/15/17 13:44 Physical Exam Vitals: Vital Signs Temp Pulse Pulse Resp BP BP Pulse Ox 09/16/17 04:00 99.0 F 59 L 16 100/59 95 09/15/17 23:34 65 16 09/15/17 23:32 99.2 F 65 16 113/55 96 09/15/17 20:20 98.7 F 62 16 115/56 96 09/15/17 16:30 97.7 F 68 16 116/70 100 09/15/17 13:45 98.2 F 76 18 140/88 96 09/15/17 13:00 75 18 137/94 100 09/15/17 11:41 73 18 134/71 96 09/15/17 10:39 98.7 F 68 18 103/70 96 Intake and Output 09/15/17 09/16/17 09/16/17 22:59 06:59 14:59 Intake Total 620 450 Balance 620 450 Intake: Intake, IV Titration 150 450 Amount Sodium Chloride 0.9% 1, 150 450 000 ml @ 50 mls/hr IV . Q20H [facility] Rx#:[id number] Oral 470 Other: Voiding Method Bedside Commode Bedside Commode Diaper Diaper Weight 96.7 kg PHYSICAL EXAMINATION: GENERAL: 77-year-old gentleman in no apparent distress at the time of my examination. HEENT: Head is atraumatic, normocephalic. Pupils equal, round. Sclera anicteric. Conjunctiva are clear. Mucous membranes of the mouth are moist. Neck is supple. There is no elevated jugular venous pressure.] bruit is heard. HEART EXAMINATION: Heart S1 S2 1 systolic ejection murmur is heard at the base CHEST EXAMINATION: Lungs are clear to auscultation and precussion. No chest wall tenderness is noted on palpation or with deep breathing. ABDOMEN: Soft, nontender. Bowel sounds are heard. No organomegaly noted. EXTREMITIES: 2+ peripheral pulses with trace evidence of peripheral edema and no calf tenderness noted. NEUROLOGIC patient is awake, alert and oriented -3. . Results 09/15/17 11:12 09/15/17 11:12 Cardiac Enzymes 09/15/17 09/15/17 09/15/17 Range/Units 11:12 11:12 17:14 AST 51 (17-59) U/L CK-MB (CK-2) 17.8 H* 25.5 H* (0.0-2.4) ng/mL Troponin I 0.678 H* 0.655 H* (0.000-0.034) ng/mL 09/15/17 Range/Units 23:15 AST (17-59) U/L CK-MB (CK-2) 17.9 H* (0.0-2.4) ng/mL Troponin I 0.443 H* (0.000-0.034) ng/mL Coagulation 09/15/17 Range/Units 11:12 PT 10.8 (9.0-12.0) sec APTT 23.0 (22.0-30.0) sec CBC 09/15/17 Range/Units 11:12 WBC 11.0 H (3.8-10.6) k/uL RBC 4.93 (4.30-5.90) m/uL Hgb 14.7 (13.0-17.5) gm/dL Hct 42.7 (39.0-53.0) % Plt Count 180 (150-450) k/uL Comprehensive Metabolic Panel 09/15/17 Range/Units 11:12 Sodium 142 (137-145) mmol/L Potassium 4.7 (3.5-5.1) mmol/L Chloride 105 (98-107) mmol/L Carbon Dioxide 20 L (22-30) mmol/L BUN 28 H (9-20) mg/dL Creatinine 1.20 (0.66-1.25) mg/dL Glucose 188 H (74-99) mg/dL Calcium 9.3 (8.4-10.2) mg/dL AST 51 (17-59) U/L ALT 32 (21-72) U/L Alkaline Phosphatase 107 (38-126) U/L Total Protein 6.9 (6.3-8.2) g/dL Albumin 4.3 (3.5-5.0) g/dL Current Medications Generic Name Dose Route Start Last Admin Trade Name Freq PRN Reason Stop Dose Admin Acetaminophen 650 mg 09/15/17 13:02 Tylenol Tab PO Q6HR PRN Mild Pain or Fever > 100.5 Alprazolam 0.25 mg 09/15/17 18:16 Xanax PO Q6HR PRN Anxiety Amiodarone HCl 200 mg 09/16/17 09:00 Cordarone PO DAILY ALBINO Aspirin 81 mg 09/15/17 21:00 09/15/17 20:28 Aspirin PO 81 mg BID ALBINO Administration Atorvastatin Calcium 40 mg 09/16/17 09:00 Lipitor PO DAILY [facility] Calcium Carbonate/Glycine 1,000 mg 09/15/17 18:16 Tums PO Q4HR PRN Dyspepsia Carbidopa/Levodopa 1 each 09/15/17 16:00 09/15/17 21:52 Sinemet Er 50-200 PO 1 each TID ALBINO Administration Enoxaparin Sodium 40 mg 09/15/17 18:30 09/15/17 20:28 Lovenox SQ 40 mg DAILY ALBINO Administration Finasteride 5 mg 09/16/17 09:00 Proscar PO DAILY ALBINO Sodium Chloride 1,000 mls @ 50 mls/hr 09/15/17 12:45 09/16/17 06:17 Saline 0.9% IV 50 mls/hr .Q20H ALBINO Administration Insulin Aspart 0 unit 09/16/17 07:30 09/16/17 06:17 Novolog SQ 1 unit AC-TID ALBINO Administration Protocol Lactulose 20 gm 09/15/17 18:16 Cephulac PO DAILY PRN Constipation Levothyroxine Sodium 25 mcg 09/16/17 06:30 09/16/17 06:17 Synthroid PO 25 mcg DAILY@0630 ALBINO Administration Linagliptin 5 mg 09/16/17 09:00 Tradjenta PO DAILY ALBINO Lisinopril 20 mg 09/16/17 09:00 Zestril PO DAILY ALBINO Magnesium Hydroxide 2,400 mg 09/15/17 18:16 Milk Of Magnesia PO DAILY PRN Constipation Melatonin 3 mg 09/15/17 21:00 Melatonin PO HS PRN Insomnia Metoprolol Succinate 50 mg 09/16/17 09:00 Toprol Xl PO DAILY ALBINO Naloxone HCl 0.2 mg 09/15/17 13:02 Narcan IV Q2M PRN Opioid Reversal Ondansetron HCl 4 mg 09/15/17 18:16 Zofran IVP Q8HR PRN Nausea And Vomiting Intake and Output 09/15/17 09/16/17 09/16/17 22:59 06:59 14:59 Intake Total 620 450 Balance 620 450 Intake: Intake, IV Titration 150 450 Amount Sodium Chloride 0.9% 1, 150 450 000 ml @ 50 mls/hr IV . Q20H [facility] Rx#:[id number] Oral 470 Other: Voiding Method Bedside Commode Bedside Commode Diaper Diaper Weight 96.7 kg 09/15/17 11:12 09/15/17 11:12 EKG Interpretations (text) EKG shows abnormal sinus rhythm with first-degree AV block, inferior Q waves, nonspecific ST-T wave changes Assessment and Plan Plan: Assessment and plan #1 fall, with no clear-cut evidence of syncope. EKG shows normal sinus rhythm with first-degree AV block, inferior Q waves, nonspecific ST-T wave changes. #2 known history of coronary artery disease with prior bypass surgery and multiple stent placements CABG was performed in 2005 at which time patient underwent a ENRIQUE to the LAD, saphenous vein graft to the RCA, saphenous vein graft to the OM1 and 2 #3 ischemic cardiomyopathy with prior AICD #4 diabetes 5 hypertension #6 hyperlipidemia #7 prior CVA #8 Parkinson's #9 paroxysmal atrial fibrillation, not currently on anticoagulation. In normal sinus rhythm #10 abnormal CK-MB, likely secondary to fall and prolonged stay on the floor #11 abnormal troponins, not consistent with acute coronary syndrome. #12 hypothyroidism Plan We will obtain an echocardiogram with Doppler study. We will also have the patient's AICD interrogated, in August 2015 patient was noted to have AICD discharge, troponin levels were abnormal at that time as well. We will continue a baby aspirin, decreasing it to once daily, continue Lipitor, amiodarone, lisinopril, and prolonged. We will check orthostatic blood pressure and heart rate every shift, continue to monitor for any tachycardia or bradycardia arrhythmias. Further recommendations to follow. DNP note has been reviewed, I agree with a documented findings and plan of care. Patient was seen and examined.
[2017-09-16] MEDS: METOPROLOL SUCCINATE (ER) 50 MG TAB.ER.24H PO SCH (08:47)
[2017-09-16] MEDS: FINASTERIDE 5 MG TAB PO SCH (08:47)
[2017-09-16] MEDS: ENOXAPARIN 40 MG/0.4 ML SYRINGE SQ SCH (08:47)
[2017-09-16] MEDS: ATORVASTATIN 40 MG TAB PO SCH (08:47)
[2017-09-16] MEDS: CARBIDOPA-LEVODOPA ER 50-200MG 1 EACH TABLET.ER PO SCH ×3 (08:47→20:09)
[2017-09-16] MEDS: ASPIRIN 81 MG PO SCH (08:48)
[2017-09-16] MEDS: AMIODARONE 200 MG TAB PO SCH (08:48)
--- NOTE | 2017-09-16 09:28 | P.PN ---
Subjective This is a pleasant 77 years old male with past medical history off CVA/TIA, diabetes mellitus, hyperlipidemia, hypertension, hearing difficulty, prostate disorder, CAD and HI, CHF, S/p cardiac cath with stent, S/p pacemaker, S/p AICD in 2004, paroxysmal atrial fibrillation Who presents because of fall and left sided weakness, as per patient he was tripped and fell in the bathroom and stated on the ground for approximately 10 hours. His son his son came in the morning and saw him on the floor after 10 hours as per patient and the emergency room patient had CT of the head which shows significant ventricular dilatation suspicious for hydrocephalus versus normal pressure hydrocephalus, no acute changes in the brain. Chest x-ray is negative for changes. Pelvic x-ray shows no acute fracture. Left hand x-ray shows no acute fracture or dislocation In the previous nose there was mention of left sided weakness, when I saw the patient he denies to me any weakness when he fell or currently in any of his limbs, no abnormal sensation, however patient says generally she feels tired Objective - Vital Signs Vital signs: Vital Signs Temp 99.0 F 09/16/17 04:00 Pulse 59 L 09/16/17 04:00 Resp 16 09/16/17 04:00 BP 100/59 09/16/17 04:00 Pulse Ox 95 09/16/17 04:00 Intake & Output 09/15/17 09/16/17 09/16/17 18:59 06:59 18:59 Intake Total 240 830 Balance 240 830 Weight 97.5 kg 96.7 kg Intake: Intake, IV Titration 600 Amount Sodium Chloride 0.9% 1, 600 000 ml @ 50 mls/hr IV . Q20H [facility] Rx#:[id number] Oral 240 230 Other: Voiding Method Bedside Commode Bedside Commode Diaper Diaper - Exam GENERAL: The patient is alert and oriented x3, not in any acute distress. Well developed, well nourished. HEENT: Pupils are round and equally reacting to light. EOMI. No scleral icterus. No conjunctival pallor. Normocephalic, atraumatic. No pharyngeal erythema. No thyromegaly. CARDIOVASCULAR: S1 and S2 present. No murmurs, rubs, or gallops. PULMONARY: Chest is clear to auscultation, no wheezing or crackles. ABDOMEN: Soft, nontender, nondistended, normoactive bowel sounds. No palpable organomegaly. MUSCULOSKELETAL: No joint swelling or deformity. EXTREMITIES: No cyanosis, clubbing, or pedal edema. NEUROLOGICAL: Gross neurological examination did not reveal any focal deficits. SKIN: No rashes. - Labs CBC & Chem 7: 09/15/17 11:12 09/15/17 11:12 Labs: Abnormal Lab Results - Last 24 Hours (Table) 09/15/17 09/15/17 09/15/17 Range/Units 11:12 11:12 11:12 WBC 11.0 H (3.8-10.6) k/uL Neutrophils # 9.7 H (1.3-7.7) k/uL Lymphocytes # 0.5 L (1.0-4.8) k/uL Carbon Dioxide 20 L (22-30) mmol/L BUN 28 H (9-20) mg/dL Glucose 188 H (74-99) mg/dL POC Glucose (mg/dL) (75-99) mg/dL Creatine Kinase 2199 H (55-170) U/L Total Creatine Kinase 2199 H (55-170) U/L CK-MB (CK-2) 17.8 H* (0.0-2.4) ng/mL Troponin I 0.678 H* (0.000-0.034) ng/mL Urine Protein (Negative) Urine Glucose (UA) (Negative) Urine Ketones (Negative) Urine Blood (Negative) Hyaline Casts (0-2) /lpf Urine Mucus (None) /hpf 09/15/17 09/15/17 09/15/17 Range/Units 12:13 16:27 17:14 WBC (3.8-10.6) k/uL Neutrophils # (1.3-7.7) k/uL Lymphocytes # (1.0-4.8) k/uL Carbon Dioxide (22-30) mmol/L BUN (9-20) mg/dL Glucose (74-99) mg/dL POC Glucose (mg/dL) 190 H (75-99) mg/dL Creatine Kinase (55-170) U/L Total Creatine Kinase 4051 H (55-170) U/L CK-MB (CK-2) 25.5 H* (0.0-2.4) ng/mL Troponin I 0.655 H* (0.000-0.034) ng/mL Urine Protein 1+ H (Negative) Urine Glucose (UA) 1+ H (Negative) Urine Ketones 1+ H (Negative) Urine Blood Moderate H (Negative) Hyaline Casts 5 H (0-2) /lpf Urine Mucus Rare H (None) /hpf 09/15/17 09/15/17 09/16/17 Range/Units 20:42 23:15 06:08 WBC (3.8-10.6) k/uL Neutrophils # (1.3-7.7) k/uL Lymphocytes # (1.0-4.8) k/uL Carbon Dioxide (22-30) mmol/L BUN (9-20) mg/dL Glucose (74-99) mg/dL POC Glucose (mg/dL) 155 H 132 H (75-99) mg/dL Creatine Kinase (55-170) U/L Total Creatine Kinase 2899 H (55-170) U/L CK-MB (CK-2) 17.9 H* (0.0-2.4) ng/mL Troponin I 0.443 H* (0.000-0.034) ng/mL Urine Protein (Negative) Urine Glucose (UA) (Negative) Urine Ketones (Negative) Urine Blood (Negative) Hyaline Casts (0-2) /lpf Urine Mucus (None) /hpf Assessment and Plan Plan: -Fall, no evidence of syncope. Elevated troponin Cardiology and neurology consult is called and appreciated. 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 Continue with baby aspirin and Lipitor. Continue with blood pressure medication amiodarone and lisinopril. Recommend PT /OT -History of paroxysmal A. fib, continue with amiodarone and aspirin and metoprolol. Cardiology consult is appreciated -Significantly enlarged ventricles on the CT of the brain, possible no more pressure hydrocephalus versus hydrocephalus versus other. Call neurology consults -Possible acute drop to my lysis with elevated CPK at 2199 on admission, continue with gentle hydration and follow-up CPK level -Hypertension, continue with same and treatment -Hyperlipidemia, continue with same treatment -Diabetes mellitus type 2, continue with same treatment -History of Parkinson disease, not in active tissue, continue with carbidopa/ levodopa DVT prophylaxis on Lovenox GI prophylaxis Pepcid Physical therapy recommendation: Pending Prognosis is guarded given multiple and complex medical comorbidities
--- NOTE | 2017-09-16 10:06 | ECHOF ---
Referral Reason:r/o thrombus MEASUREMENTS -------- HEIGHT: 180.3 cm WEIGHT: 96.6 kg BP: 100/59 RVIDd: 3.0 cm (< 3.3) IVSd: 1.1 cm (0.6 - 1.1) LVIDd: 4.8 cm (3.9 - 5.3) LVPWd: 0.9 cm (0.6 - 1.1) IVSs: 2.0 cm LVIDs: 3.9 cm LVPWs: 1.2 cm LAESV Index (A-L): 18.60 ml/m Ao Diam: 3.9 cm (2.0 - 3.7) AV Cusp: 2.2 cm (1.5 - 2.6) LA Diam: 3.8 cm (2.7 - 3.8) MV EXCURSION: 12.148 mm (> 18.000) MV EF SLOPE: 40 mm/s (70 - 150) EPSS: 1.1 cm MV E Jerry: 0.68 m/s MV DecT: 196 ms MV A Jerry: 0.63 m/s MV E/A Ratio: 1.07 RAP: 5.00 mmHg RVSP: 13.09 mmHg FINDINGS -------- Sinus rhythm. Pacerwire seen in RV and RA. This was a technically difficult study with suboptimal views. The left ventricular size is normal. Left ventricular wall thickness is normal. Overall left vent ricular systolic function is mild-moderately impaired with, an EF between 40 - 45 %. Basal inferola teral hypokinesis. The right ventricle is normal in size and function. The left atrium is normal in size. The right atrium is normal in size. Lumason used Aortic valve is trileaflet and is mildly thickened. The mitral valve leaflets are mildly thickened. Mild mitral regurgitation is present. Mild tricuspid regurgitation present. The right ventricular systolic pressure, as measured by Doppl er, is 13.09mmHg. Trace/mild (physiologic) pulmonic regurgitation. The aortic root is dilated measuring 3.9cm The pericardium is normal. CONCLUSIONS -------- 1. Sinus rhythm. 2. Pacerwire seen in RV and RA. 3. This was a technically difficult study with suboptimal views. 4. The left ventricular size is normal. 5. Left ventricular wall thickness is normal. 6. Overall left ventricular systolic function is mild-moderately impaired with, an EF between 40 - 45 %. 7. Basal inferolateral hypokinesis. 8. The right ventricle is normal in size and function. 9. The left atrium is normal in size. 10. The right atrium is normal in size. 11. Lumason used 12. Aortic valve is trileaflet and is mildly thickened. 13. The mitral valve leaflets are mildly thickened. 14. Mild mitral regurgitation is present. 15. Mild tricuspid regurgitation present. 16. The right ventricular systolic pressure, as measured by Doppler, is 13.09mmHg. 17. Trace/mild (physiologic) pulmonic regurgitation. 18. The aortic root is dilated measuring 3.9 cm 19. The pericardium is normal. BEER COIL CLEANER: Amna Darling RDCS
[2017-09-16 10:48] LABS: Basophils # (A) 0.1 k/uL (0-0.2); Basophils % (A) 1 %; Eosinophils # (A) 0.2 k/uL (0-0.7); Eosinophils % (A) 4 %; HCT 37.3 % (39.0-53.0); Lymphocytes # (A) 1.3 k/uL (1.0-4.8); Lymphocytes % (A) 19 %; MCH 31.1 pg (25.0-35.0); MCHC 34.9 g/dL (31.0-37.0); MCV 89.2 fL (80.0-100.0); Mean Platelet Volume 7.1; Monocytes # (A) 0.3 k/uL (0-1.0); Monocytes % (A) 5 %; Neutrophils # (A) 4.6 k/uL (1.3-7.7); Neutrophils % (A) 70 %; Platelet Count 158 k/uL (150-450); RBC 4.18 m/uL (4.30-5.90); RDW 14.4 % (11.5-15.5); WBC 6.5 k/uL (3.8-10.6)
[2017-09-16 11:00] LABS: Calcium 8.5 mg/dL (8.4-10.2); Potassium 4.1 mmol/L (3.5-5.1)
[2017-09-16 11:09] LABS: Glucose,Whole Blood 128 mg/dL (75-99)
[2017-09-16] MEDS: LINAGLIPTIN 5 MG TABLET PO SCH (11:32)
[2017-09-16] MEDS: LISINOPRIL 20 MG TAB PO SCH (11:32)
--- NOTE | 2017-09-16 15:22 | US ---
EXAMINATION TYPE: US carotid duplex BILAT DATE OF EXAM: 09/16/2017 COMPARISON: 08/19/2015 US CLINICAL HISTORY: left arm weakness. EXAM MEASUREMENTS: RIGHT: Peak Systolic Velocity (PSV) cm/sec ----- Right CCA: 106.4 ----- Right ICA: 77.4 ----- Right ECA: 150.8 ICA/CCA ratio: 0.7 RIGHT: End Diastole cm/sec ----- Right CCA: 17.6 ----- Right ICA: 24.1 ----- Right ECA: 11.4 LEFT: Peak Systolic Velocity (PSV) cm/sec ----- Left CCA: 132.2 ----- Left ICA: 74.9 ----- Left ECA: 169.8 ICA/CCA ratio: 0.6 LEFT: End Diastole cm/sec ----- Left CCA: 13.7 ----- Left ICA: 21.9 with no definite hemodynamic stenosis by carotid Doppler ultrasound. ----- Left ECA: 10.9 VERTEBRALS (direction of flow): Right Vertebral: Antegrade Left Vertebral: Antegrade Rhythm: Normal Severe amount of plaque visualized bilateral bulbs. Elevated velocities visualized in the right ECA, left CCA, and left ECA IMPRESSION: 1. There is a significant amount of plaque bilaterally with no significant hemodynamic stenosis bila terally. There are elevated velocities within the left common carotid artery. This could be correlate d with CTA of the carotid bifurcations. Criteria for Assigning % of Stenosis / Diameter reduction (Estimation based on the indirect measurements of the internal carotid artery velocities (ICA PSV). 1. Normal (no stenosis)=ICA PSV < 125 cm/s: ratio < 2.0: ICA EDV<40 cm/s. 2. Less than 50% stenosis=ICA PSV < 125 cm/s: ratio < 2.0: ICA EDV<40 cm/s. 3. 50 to 69% stenosis=ICA PSV of 125 to 230 cm/s: ration 2.0 ? 4.0: ICA EDV 40-100 cm/s. 4. Greater than 70% stenosis to near occlusion= ICA PSV > 230 cm/s: ratio > 4.0: ICA EDV > 100 cm/s. 5. Near occlusion= ICA PSV velocities may be low or undetectable: variable ratio and ICA EDV. 6. Total occlusion=unable to detect flow.
--- NOTE | 2017-09-16 16:08 | P.CONS ---
History of Present Illness - Reason for Consult Consult date: 09/16/17 Lower extremity weakness - Chief Complaint Lower extremity weakness - History of Present Illness This pleasant 72-year-old male being evaluated by the neurology service for the above complaints. He has a significant medical history for Parkinson's disease, AICD, chronic CHF, atrial fibrillation, diabetes, hyperlipidemia, hypertension, coronary artery disease status post CABG vertigo. Patient was found by his son after being down is house for about 10-12 hours. Patient does remember falling and just not being able to get up. He denies loss of consciousness. He denies injury to head and neck. He was found somewhat confused. He was found to have some left-sided weakness which he says maybe left over from his previous stroke. He also complains of some new onset urinary incontinence over the last couple months. CT of the brain was done and showed no acute intracranial abnormalities, intracranial hemorrhage, or mass effect. There was significant ventricular dilation possibly consistent with hydrocephalus. Remote ischemic changes were also seen. At the time my exam he is resting comfortably in bed in no acute distress. His total CK level was 1501. 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 svt, paroxysmal afib, djd Last Myocardial Infarction Date:: 2004 History of Any Multi-Drug Resistant Organisms: None Reported Past Surgical History: Coronary Bypass/CABG, Heart Catheterization With Stent, Hernia Repair, Pacemaker Additional Past Surgical History / Comment(s): CABG-4 vessel in 2005, AICD 2004 and gen change 11/23/14, bilateral lens implants, lasik eye surgery, L hernia repair Past Anesthesia/Blood Transfusion Reactions: No Reported Reaction Date of Last Stent Placement:: 2007 Type of Cardiac Device: AICD Device Placement Date:: original 2004 with gen change 10/2014 Past Psychological History: No Psychological Hx Reported Additional Psychological History / Comment(s): He has a cane and walker. lives in own home-no longer drives,stated gets meals on wheels Smoking Status: Never smoker Past Alcohol Use History: None Reported Additional Past Alcohol Use History / Comment(s): Pt started smoking in 1989 and quit in 1998. Past Drug Use History: None Reported - Past Family History Father Family Medical History: No Reported History Additional Family Medical History / Comment(s): Father was healthy and at age 84 yrs. Mother Family Medical History: No Reported History Additional Family Medical History / Comment(s): Mother was healthy and at age 82 or 83. Medications and Allergies Home Medications Medication Instructions Recorded Confirmed Type Dutasteride [Avodart] 0.5 mg PO DAILY 11/19/14 09/15/17 History Linagliptin [Tradjenta] 5 mg PO DAILY 11/19/14 09/15/17 History Metoprolol Succinate [Toprol XL] 50 mg PO DAILY 11/19/14 09/15/17 History Aspirin 81 mg PO BID 09/13/15 09/15/17 History Atorvastatin [Lipitor] 40 mg PO DAILY 09/13/15 09/15/17 History Lisinopril [Zestril] 20 mg PO DAILY 09/13/15 09/15/17 History Amiodarone [Cordarone] 100 mg PO DAILY 04/11/16 09/15/17 History Levothyroxine Sodium [Synthroid] 25 mcg PO DAILY 04/11/16 09/15/17 History Acetaminophen Tab [Tylenol] 650 mg PO Q6HR PRN #0 tab 04/17/16 09/15/17 Rx Carbidopa-Levodopa ER 50-200Mg 1 each PO TID tablet.er 04/17/16 09/15/17 Rx [Sinemet CR 50-200 mg] Furosemide [Lasix] 20 mg PO DAILY 09/15/17 09/15/17 History Allergies Allergy/AdvReac Type Severity Reaction Status Date / Time No Known Allergies Allergy Verified 09/15/17 13:44 Physical Exam Vitals: Vital Signs Temp Pulse Resp BP Pulse Ox 09/16/17 12:00 96.9 F L 80 14 116/66 97 09/16/17 08:00 99.1 F 72 16 115/61 97 09/16/17 04:00 99.0 F 59 L 16 100/59 95 09/15/17 23:34 65 16 09/15/17 23:32 99.2 F 65 16 113/55 96 09/15/17 20:20 98.7 F 62 16 115/56 96 09/15/17 16:30 97.7 F 68 16 116/70 100 Intake and Output 09/16/17 09/16/17 09/16/17 06:59 14:59 22:59 Intake Total 450 240 Output Total 600 Balance 450 -360 Intake: Intake, IV Titration 450 Amount Sodium Chloride 0.9% 1, 450 000 ml @ 50 mls/hr IV . Q20H [facility] Rx#:[id number] Oral 240 Output: Urine 600 Other: Voiding Method Bedside Commode Bedside Commode Diaper Diaper # Voids 3 Weight 96.7 kg - Constitutional General appearance: average body habitus, cooperative, no acute distress - EENT Eyes: no abnormal pupil, EOMI, PERRLA, no ptosis ENT: hard of hearing - Neck Neck: normal ROM, no rigidity - Respiratory Respiratory: negative: prolonged expiration, prolonged inspiration - Cardiovascular Rhythm: regular - Gastrointestinal General gastrointestinal: no distended, no tenderness - Neurologic The patient is alert awake and oriented 3. Speech and language are normal. There is no facial asymmetry. Strength is 5 out of 5 in bilateral upper extremities and right lower extremities. 5 minus out of 5 and left lower extremity. There is no sensory deficit. Mild intermittent resting hand tremors . No seizures are seen. Cranial nerves II through XII are intact globally. Mild dysmetria. Results CBC & Chem 7: 09/16/17 10:31 09/16/17 10:31 Labs: Abnormal Lab Results - Last 24 Hours (Table) 09/15/17 09/15/17 09/15/17 Range/Units 16:27 17:14 20:42 RBC (4.30-5.90) m/uL Hct (39.0-53.0) % BUN (9-20) mg/dL Glucose (74-99) mg/dL POC Glucose (mg/dL) 190 H 155 H (75-99) mg/dL Creatine Kinase (55-170) U/L Total Creatine Kinase 4051 H (55-170) U/L CK-MB (CK-2) 25.5 H* (0.0-2.4) ng/mL Troponin I 0.655 H* (0.000-0.034) ng/mL 18 18 09/16/17 Range/Units 23:15 06:08 10:31 RBC (4.30-5.90) m/uL Hct (39.0-53.0) % BUN 22 H (9-20) mg/dL Glucose 136 H (74-99) mg/dL POC Glucose (mg/dL) 132 H (75-99) mg/dL Creatine Kinase 2189 H (55-170) U/L Total Creatine Kinase 2899 H (55-170) U/L CK-MB (CK-2) 17.9 H* (0.0-2.4) ng/mL Troponin I 0.443 H* (0.000-0.034) ng/mL 09/16/17 09/16/17 Range/Units 10:31 11:07 RBC 4.18 L (4.30-5.90) m/uL Hct 37.3 L (39.0-53.0) % BUN (9-20) mg/dL Glucose (74-99) mg/dL POC Glucose (mg/dL) 128 H (75-99) mg/dL Creatine Kinase (55-170) U/L Total Creatine Kinase (55-170) U/L CK-MB (CK-2) (0.0-2.4) ng/mL Troponin I (0.000-0.034) ng/mL Assessment and Plan (1) Left leg weakness Current Visit: Yes Status: Acute Code(s): R29.898 - [facility] SYMPTOMS AND SIGNS INVOLVING THE MUSCULOSKELETAL SYSTEM SNOMED Code(s): 017353464 (2) Recurrent falls while walking Current Visit: Yes Status: Acute Code(s): R29.6 - REPEATED FALLS SNOMED Code(s): 894035090 (3) Altered mental status Current Visit: No Status: Resolved Code(s): R41.82 - ALTERED MENTAL STATUS, UNSPECIFIED SNOMED Code(s): 593087403 (4) Cerebral ventriculomegaly Current Visit: No Status: Suspected Code(s): G93.89 - OTHER SPECIFIED DISORDERS OF BRAIN SNOMED Code(s): 823852649 (5) Parkinsons disease Current Visit: No Status: Chronic Code(s): G20 - PARKINSON'S DISEASE SNOMED Code(s): 16964463 Plan: This patient with known Parkinson's disease has been having problems lately with weakness, gait disturbance, urinary incontinence. He was brought in after being found on the floor. There was some alteration of consciousness. Recall that CT showed no acute intracranial abnormalities. I will order an EEG and repeat a CT to rule out any acute ischemic event. Ventriculomegaly was found on his initial CT. He does have symptoms suggestive of normal pressure hydrocephalus. Suggest a lumbar puncture to check opening pressure and to a large volume drainage. The procedure could be both diagnostic and curative. We could perform this procedure in outpatient setting. Continue the rest of your workup and treatment. He will continue to follow with his neurologist Dr. Webb.
[2017-09-16 16:40] LABS: Glucose,Whole Blood 135 mg/dL (75-99)
--- NOTE | 2017-09-16 16:54 | CT ---
EXAMINATION TYPE: CT brain wo con DATE OF EXAM: 09/16/2017 COMPARISON: Yesterday HISTORY: Patient poor historian. Recent fall. CT DLP: 873.8 mGycm Automated exposure control for dose reduction was used. FINDINGS: There is fluid level in the left maxillary sinus. There is diffuse cerebral cortical atrophy. There i s no mass effect nor midline shift. There is enlargement of the ventricles. There is wedge-shaped 3 c m area of hypodensity in the right frontal lobe related to old cortical infarct. There is no sign of intracranial hemorrhage. There is 2 cm area of hypodensity in the left frontal lobe consistent with o ld cortical infarct. The calvarium appears intact. IMPRESSION: OLD BILATERAL FRONTAL LOBE CORTICAL INFARCTS. CHRONIC SMALL VESSEL ISCHEMIA. CEREBRAL ATROPHY. HYDROC EPHALUS. NO CHANGE COMPARED TO YESTERDAY.
[2017-09-16] MEDS: FAMOTIDINE 20 MG TAB PO SCH (20:09)
[2017-09-16 20:48] LABS: Glucose,Whole Blood 165 mg/dL (75-99)
[2017-09-16] MEDS ORDERED: FAMOTIDINE 20 MG/2 ML VIAL IV SCH (21:00)
[2017-09-17] MEDS: SODIUM CHLORIDE 0.9% 1,000 ML IV SCH ×3 (05:51→23:55)
[2017-09-17 06:09] LABS: Basophils # (A) 0.1 k/uL (0-0.2); Basophils % (A) 1 %; Eosinophils # (A) 0.2 k/uL (0-0.7); Eosinophils % (A) 3 %; HGB 12.2 gm/dL (13.0-17.5); Lymphocytes # (A) 1.1 k/uL (1.0-4.8); Lymphocytes % (A) 19 %; MCH 30.5 pg (25.0-35.0); MCHC 34.8 g/dL (31.0-37.0); MCV 87.8 fL (80.0-100.0); Mean Platelet Volume 7.3; Monocytes # (A) 0.3 k/uL (0-1.0); Monocytes % (A) 6 %; Neutrophils % (A) 70 %; Platelet Count 132 k/uL (150-450); RBC 3.98 m/uL (4.30-5.90); RDW 13.2 % (11.5-15.5); WBC 5.7 k/uL (3.8-10.6)
[2017-09-17 06:10] LABS: Glucose,Whole Blood 128 mg/dL (75-99)
[2017-09-17 06:15] LABS: Calcium 8.2 mg/dL (8.4-10.2); Potassium 3.9 mmol/L (3.5-5.1)
[2017-09-17] MEDS: LEVOTHYROXINE 25 MCG TAB PO SCH (06:27)
[2017-09-17] MEDS: INSULIN ASPART 100 UNIT/ML 1 ML 10 ML VIAL SQ SCH ×3 (06:28→17:00)
--- NOTE | 2017-09-17 07:43 | P.PN ---
Subjective This is a pleasant 77 years old male with past medical history off CVA/TIA, diabetes mellitus, hyperlipidemia, hypertension, hearing difficulty, prostate disorder, CAD and NH, CHF, S/p cardiac cath with stent, S/p pacemaker, S/p AICD in 2004, paroxysmal atrial fibrillation Who presents because of fall and left sided weakness, as per patient he was tripped and fell in the bathroom and stated on the ground for approximately 10 hours. His son his son came in the morning and saw him on the floor after 10 hours as per patient and the emergency room patient had CT of the head which shows significant ventricular dilatation suspicious for hydrocephalus versus normal pressure hydrocephalus, no acute changes in the brain. Chest x-ray is negative for changes. Pelvic x-ray shows no acute fracture. Left hand x-ray shows no acute fracture or dislocation In the previous nose there was mention of left sided weakness, when I saw the patient he denies to me any weakness when he fell or currently in any of his limbs, no abnormal sensation, however patient says generally she feels tired Objective - Vital Signs Vital signs: Vital Signs Temp 96.9 F L 09/17/17 05:15 Pulse 63 09/17/17 05:15 Resp 16 09/17/17 05:15 BP 125/68 09/17/17 05:15 Pulse Ox 94 L 09/17/17 05:15 Intake & Output 09/16/17 09/17/17 09/17/17 18:59 06:59 18:59 Intake Total 480 825 Output Total 600 Balance -120 825 Weight 100.4 kg Intake: Intake, IV Titration 825 Amount Sodium Chloride 0.9% 1, 825 000 ml @ 75 mls/hr IV . [id number] [facility] Rx#:[id number] Oral 480 Output: Urine 600 Other: Voiding Method Bedside Commode Bedside Commode Diaper Diaper # Voids 3 2 - Exam GENERAL: The patient is alert and oriented x3, not in any acute distress. Well developed, well nourished. HEENT: Pupils are round and equally reacting to light. EOMI. No scleral icterus. No conjunctival pallor. Normocephalic, atraumatic. No pharyngeal erythema. No thyromegaly. CARDIOVASCULAR: S1 and S2 present. No murmurs, rubs, or gallops. PULMONARY: Chest is clear to auscultation, no wheezing or crackles. ABDOMEN: Soft, nontender, nondistended, normoactive bowel sounds. No palpable organomegaly. MUSCULOSKELETAL: No joint swelling or deformity. EXTREMITIES: No cyanosis, clubbing, or pedal edema. NEUROLOGICAL: Gross neurological examination did not reveal any focal deficits. SKIN: No rashes. - Labs CBC & Chem 7: 09/17/17 05:32 09/17/17 05:32 Labs: Abnormal Lab Results - Last 24 Hours (Table) 09/16/17 09/16/17 09/16/17 Range/Units 10:31 10:31 11:07 RBC 4.18 L (4.30-5.90) m/uL Hgb (13.0-17.5) gm/dL Hct 37.3 L (39.0-53.0) % Plt Count (150-450) k/uL BUN 22 H (9-20) mg/dL Glucose 136 H (74-99) mg/dL POC Glucose (mg/dL) 128 H (75-99) mg/dL Calcium (8.4-10.2) mg/dL Creatine Kinase 2189 H (55-170) U/L 09/16/17 09/16/17 09/17/17 Range/Units 16:23 20:46 05:32 RBC 3.98 L (4.30-5.90) m/uL Hgb 12.2 L (13.0-17.5) gm/dL Hct 35.0 L (39.0-53.0) % Plt Count 132 L (150-450) k/uL BUN (9-20) mg/dL Glucose (74-99) mg/dL POC Glucose (mg/dL) 135 H 165 H (75-99) mg/dL Calcium (8.4-10.2) mg/dL Creatine Kinase (55-170) U/L 09/17/17 09/17/17 Range/Units 05:32 05:47 RBC (4.30-5.90) m/uL Hgb (13.0-17.5) gm/dL Hct (39.0-53.0) % Plt Count (150-450) k/uL BUN (9-20) mg/dL Glucose 123 H (74-99) mg/dL POC Glucose (mg/dL) 128 H (75-99) mg/dL Calcium 8.2 L (8.4-10.2) mg/dL Creatine Kinase 1217 H (55-170) U/L Assessment and Plan Plan: -Fall, no evidence of syncope. Elevated troponin Cardiology and neurology consult is called and appreciated. Credit Office Manager recommended an echo (ejection fraction 40-45% and inferior lateral hypokinesia) and AICD interrogation: Pending. Continue with baby aspirin and Lipitor. Continue with blood pressure medication amiodarone and lisinopril. CD: Bilateral plaque with no significant stenosis -History of paroxysmal A. fib, continue with amiodarone and aspirin and metoprolol. Cardiology consult is appreciated -Significantly enlarged ventricles on the CT of the brain, possible normal pressure hydrocephalus versus hydrocephalus versus other. neurology consult is appreciated and they recommended EEG: pending , and repeat CAT scan: Old frontal infarcts and hydrocephalus, unchanged. Also they recommended lumbar puncture to check for the pressure and for volume drainage which could be done as an outpatient as per neurology recommendation -Possible acute Rhabdomyolysis with elevated CPK at 2199 on admission down to 1217, continue with gentle hydration and follow-up CPK level -Hypertension, continue with same and treatment -Hyperlipidemia, continue with same treatment -Diabetes mellitus type 2, continue with same treatment -History of Parkinson disease, not in active tissue, continue with carbidopa/ levodopa DVT prophylaxis on Lovenox GI prophylaxis Pepcid Physical therapy recommendation: JEANETTE, however her son doesn't want rehab understands he calls for home health care as per staff, I discussed with the patient and he told me he will discuss with the family Prognosis is guarded given multiple and complex medical comorbidities
[2017-09-17] MEDS: FAMOTIDINE 20 MG TAB PO SCH ×2 (08:12→20:47)
[2017-09-17] MEDS: METOPROLOL SUCCINATE (ER) 50 MG TAB.ER.24H PO SCH (08:13)
[2017-09-17] MEDS: LINAGLIPTIN 5 MG TABLET PO SCH (08:13)
[2017-09-17] MEDS: CARBIDOPA-LEVODOPA ER 50-200MG 1 EACH TABLET.ER PO SCH ×3 (08:13→20:47)
[2017-09-17] MEDS: ATORVASTATIN 40 MG TAB PO SCH (08:13)
[2017-09-17] MEDS: ASPIRIN 81 MG PO SCH (08:13)
[2017-09-17] MEDS: ENOXAPARIN 40 MG/0.4 ML SYRINGE SQ SCH (08:13)
[2017-09-17] MEDS: FINASTERIDE 5 MG TAB PO SCH (08:13)
[2017-09-17] MEDS: LISINOPRIL 20 MG TAB PO SCH (08:13)
[2017-09-17] MEDS: AMIODARONE 200 MG TAB PO SCH (08:14)
[2017-09-17 11:17] LABS: Glucose,Whole Blood 150 mg/dL (75-99)
--- NOTE | 2017-09-17 12:46 | P.PN ---
Subjective Progress Note Date: 09/17/17 This is a pleasant 77-year-old gentleman who follows regularly with Dr. Green in the office. He has a known history of coronary artery disease with prior bypass surgery, prior stent placement, ischemic cardio myopathy with prior AICD implantation, hypertension, hyperlipidemia, Parkinson's, CVA, paroxysmal atrial fibrillation. He presents to the hospital after experiencing a fall at home. According to the patient, he had tripped in his bathroom and fell down to the ground, he states he was on the ground for approximately 10 hours. His son showed up in the morning, and found him there. He denies having any dizziness or lightheadedness, no palpitations, no chest discomfort. According to the patient he did not lose consciousness. He also states that the day prior to this occurring he also had an episode where he fell. He missed discharged where a pillow was, and states that he fell onto a table and chairs breaking them. On this episode he again denied having any syncope. Overall, the patient states that he's been feeling quite well, he denies any recent chest discomfort, no dizziness or lightheadedness. His blood pressure on arrival here was 103/70, heart rate in the 60s, 96% on room air he is afebrile. Let pressure this morning 100/59, heart rate in the 60s, low-grade temperature of 99.0, 95% on 2 L of oxygen. EKG on arrival here shows a normal sinus rhythm with a first-degree AV block, left axis deviation, inferior Q waves. Chest x-ray shows basilar subsegmental changes, atelectasis is favored. Hand x-ray did not reveal any definite acute fracture or dislocation. CAT scan did not reveal any acute fracture or dislocation of the spine, no acute intracranial hemorrhage or mass effect or midline shift is seen. There is significant ventricular dilatation [place] for normal pressure hydrocephalus versus hydrocephalus. Degenerative and remote ischemic changes are seen. X- ray of the pelvis does not reveal any acute fracture. White blood cell count 11 , hemoglobin 14.7, platelet count 180. Sodium 142, potassium 4.7, BUN 28 and creatinine 1.2. CK 2199, 4051, 2899. MB 17.8, 25.5, 17.9. Troponins 0.67, 0.65, 0.44. At the time of my examination this morning, patient states that he slept well last night, overall feels well this morning. 09/17/2017 Device was interrogated yesterday, patient did not have any AICD discharges or documented arrhythmias. Blood pressure stable 124/68 with heart rate in the 60s , 94% on room air. No documented orthostasis. Patient overall is feeling well today. White blood cell count 5.7, hemoglobin 12.2, platelet count 132. Sodium 138, potassium 3.9, BUN 18, creatinine 1.0. Objective - Vital Signs Vital signs: Vital Signs Temp 97.1 F L 09/17/17 08:00 Pulse 56 L 09/17/17 08:00 Resp 18 09/17/17 08:00 BP 115/64 09/17/17 08:00 Pulse Ox 97 09/17/17 08:00 Intake & Output 09/16/17 09/17/17 09/17/17 18:59 06:59 18:59 Intake Total 480 825 240 Output Total 600 Balance -120 825 240 Weight 100.4 kg Intake: Intake, IV Titration 825 Amount Sodium Chloride 0.9% 1, 825 000 ml @ 75 mls/hr IV . [id number] [facility] Rx#:[id number] Oral 480 240 Output: Urine 600 Other: Voiding Method Bedside Commode Bedside Commode Bedside Commode Diaper Diaper Diaper # Voids 3 2 - Exam PHYSICAL EXAMINATION: GENERAL: 77-year-old gentleman in no apparent distress at the time of my examination. HEENT: Head is atraumatic, normocephalic. Pupils equal, round. Sclera anicteric. Conjunctiva are clear. Mucous membranes of the mouth are moist. Neck is supple. There is no elevated jugular venous pressure.] bruit is heard. HEART EXAMINATION: Heart S1 S2 1 systolic ejection murmur is heard at the base CHEST EXAMINATION: Lungs are clear to auscultation and precussion. No chest wall tenderness is noted on palpation or with deep breathing. ABDOMEN: Soft, nontender. Bowel sounds are heard. No organomegaly noted. EXTREMITIES: 2+ peripheral pulses with trace evidence of peripheral edema and no calf tenderness noted. NEUROLOGIC patient is awake, alert and oriented -3. . - Labs CBC & Chem 7: 09/17/17 05:32 09/17/17 05:32 Labs: Abnormal Lab Results - Last 24 Hours (Table) 09/16/17 09/16/17 09/17/17 Range/Units 16:23 20:46 05:32 RBC 3.98 L (4.30-5.90) m/uL Hgb 12.2 L (13.0-17.5) gm/dL Hct 35.0 L (39.0-53.0) % Plt Count 132 L (150-450) k/uL Glucose (74-99) mg/dL POC Glucose (mg/dL) 135 H 165 H (75-99) mg/dL Calcium (8.4-10.2) mg/dL Creatine Kinase (55-170) U/L 09/17/17 09/17/17 09/17/17 Range/Units 05:32 05:47 11:07 RBC (4.30-5.90) m/uL Hgb (13.0-17.5) gm/dL Hct (39.0-53.0) % Plt Count (150-450) k/uL Glucose 123 H (74-99) mg/dL POC Glucose (mg/dL) 128 H 150 H (75-99) mg/dL Calcium 8.2 L (8.4-10.2) mg/dL Creatine Kinase 1217 H (55-170) U/L Assessment and Plan Plan: Assessment and plan #1 fall, with no clear-cut evidence of syncope. EKG shows normal sinus rhythm with first-degree AV block, inferior Q waves, nonspecific ST-T wave changes. #2 known history of coronary artery disease with prior bypass surgery and multiple stent placements CABG was performed in 2005 at which time patient underwent a ENRIQUE to the LAD, saphenous vein graft to the RCA, saphenous vein graft to the OM1 and 2 #3 ischemic cardiomyopathy with prior AICD #4 diabetes 5 hypertension #6 hyperlipidemia #7 prior CVA #8 Parkinson's #9 paroxysmal atrial fibrillation, not currently on anticoagulation. In normal sinus rhythm #10 abnormal CK-MB, likely secondary to fall and prolonged stay on the floor #11 abnormal troponins, not consistent with acute coronary syndrome. #12 hypothyroidism Plan AICD was interrogated and did not reveal any discharges from the AICD nor didn' t reveal any significant tachycardia or bradycardia arrhythmias. Echocardiogram with Doppler study was performed which revealed an ejection fraction of 40-45% with basal inferior hypokinesis. From cardiology's perspective, we'll follow this patient along with you on an as-needed basis only , please don't hesitate to call with any questions. He may be able to be discharged once cleared by primary. DNP note has been reviewed, I agree with a documented findings and plan of care. Patient was seen and examined.
[2017-09-17 16:35] LABS: Glucose,Whole Blood 153 mg/dL (75-99)
--- NOTE | 2017-09-17 18:41 | EEG ---
ELECTROENCEPHALOGRAM REPORT DATE OF SERVICE: 09/17/2017. REASON FOR TESTING: Stroke. DESCRIPTION OF THE PROCEDURE: This EEG was performed using a 21 channel digital electroencephalograph, following international if 10-20 system. DESCRIPTION OF THE RECORDING: From the beginning of the tracing, and with patient's eyes closed, the background rhythm was mostly consisting of 7 Hz theta frequency in the posterior occipital leads. No obvious asymmetry is seen. Occasional muscle artifacts and movement artifacts are seen. Photic stimulation was performed with no driving response seen. No pathological waves were elicited. Hyperventilation was not performed. The patient remains awake throughout the tracing. No epileptiform discharges were seen. His EKG lead showed a regular rate and rhythm. INTERPRETATION: This awake EEG is abnormal due to the presence of generalized slowing of the background rhythm, mostly in the theta range. This is consistent with mild encephalopathy. No epileptiform discharges were seen. The absence of epileptiform discharges does not rule out the diagnosis of epilepsy; therefore, clinical correlation is recommended. MMHILLL / [place]: [id number] /
[2017-09-17 20:56] VITALS: RESP 16
[2017-09-17 21:05] LABS: Glucose,Whole Blood 148 mg/dL (75-99)
[2017-09-18 06:00] LABS: Glucose,Whole Blood 123 mg/dL (75-99)
[2017-09-18] MEDS: INSULIN ASPART 100 UNIT/ML 1 ML 10 ML VIAL SQ SCH ×2 (06:02→12:04)
[2017-09-18 06:28] LABS: Basophils # (A) 0.1 k/uL (0-0.2); Basophils % (A) 1 %; Eosinophils # (A) 0.2 k/uL (0-0.7); Eosinophils % (A) 3 %; HCT 36.6 % (39.0-53.0); HGB 12.5 gm/dL (13.0-17.5); Lymphocytes # (A) 1.1 k/uL (1.0-4.8); Lymphocytes % (A) 21 %; MCH 29.8 pg (25.0-35.0); MCHC 34.3 g/dL (31.0-37.0); MCV 87.1 fL (80.0-100.0); Mean Platelet Volume 7.2; Monocytes # (A) 0.4 k/uL (0-1.0); Monocytes % (A) 8 %; Neutrophils # (A) 3.5 k/uL (1.3-7.7); Neutrophils % (A) 66 %; Platelet Count 159 k/uL (150-450); RDW 13.3 % (11.5-15.5); WBC 5.3 k/uL (3.8-10.6)
[2017-09-18] MEDS: LEVOTHYROXINE 25 MCG TAB PO SCH (06:29)
[2017-09-18 07:17] LABS: Calcium 8.5 mg/dL (8.4-10.2); Potassium 4.3 mmol/L (3.5-5.1)
[2017-09-18] MEDS: SODIUM CHLORIDE 0.9% 1,000 ML IV SCH ×3 (09:31→14:31)
[2017-09-18] MEDS: CARBIDOPA-LEVODOPA ER 50-200MG 1 EACH TABLET.ER PO SCH ×2 (09:34→15:52)
[2017-09-18] MEDS: LISINOPRIL 20 MG TAB PO SCH (09:35)
[2017-09-18] MEDS: ATORVASTATIN 40 MG TAB PO SCH (09:35)
[2017-09-18] MEDS: ASPIRIN 81 MG PO SCH (09:35)
[2017-09-18] MEDS: LINAGLIPTIN 5 MG TABLET PO SCH (09:35)
[2017-09-18] MEDS: FINASTERIDE 5 MG TAB PO SCH (09:35)
[2017-09-18] MEDS: ENOXAPARIN 40 MG/0.4 ML SYRINGE SQ SCH (09:35)
[2017-09-18] MEDS: AMIODARONE 200 MG TAB PO SCH (09:35)
[2017-09-18] MEDS: FAMOTIDINE 20 MG TAB PO SCH (09:35)
[2017-09-18 11:24] LABS: Glucose,Whole Blood 203 mg/dL (75-99)
[2017-09-18 11:55] VITALS: TEMP 97
[2017-09-18] MEDS: METOPROLOL SUCCINATE (ER) 50 MG TAB.ER.24H PO SCH (14:31)
[2017-09-18 15:50] VITALS: BP 144/73; PULSE 53
--- NOTE | 2017-09-19 09:46 | P.DS ---
Providers Date of admission: 09/15/17 13:02 Attending physician: James Espinoza Consults: 09/15/17 13:03 Consult Physician Routine Consulting Provider: Thee Ordonez Consult Reason/Comments: Elevated troponin Do you want consulting provider notified?: Yes Consult Physician Routine Consulting Provider: Ke Crews Consult Reason/Comments: Left lower extremity weakness, history of Parkinson' s and CVA Do you want consulting provider notified?: Yes Primary care physician: [facility] Course: This is a pleasant 77 years old male with past medical history off CVA/TIA, diabetes mellitus, hyperlipidemia, hypertension, hearing difficulty, prostate disorder, CAD and NE, CHF, S/p cardiac cath with stent, S/p pacemaker, S/p AICD in 2004, paroxysmal atrial fibrillation Who presents because of fall and left sided weakness, as per patient he was tripped and fell in the bathroom and stated on the ground for approximately 10 hours. His son his son came in the morning and saw him on the floor after 10 hours as per patient and the emergency room patient had CT of the head which shows significant ventricular dilatation suspicious for hydrocephalus versus normal pressure hydrocephalus, no acute changes in the brain. Chest x-ray is negative for changes. Pelvic x-ray shows no acute fracture. Left hand x-ray shows no acute fracture or dislocation. his his left-sided weakness that looks it is at baseline, however patient complains from generalized weakness. Patient has been evaluated by neurologist and rfid technician. Recommended to repeat CT of the brain and showed no acute intracranial abnormalities, intracranial hemorrhage, or mass effect. There was significant ventricular dilation possibly consistent with hydrocephalus. Remote ischemic changes were also seen. As per neurologist he does have symptoms suggestive of normal pressure hydrocephalus. Suggest a lumbar puncture to check opening pressure and to a large volume drainage. The procedure could be both diagnostic and curative. We could perform this procedure in outpatient setting. EEG: Is consistent with mild encephalopathy and no epileptiform discharge were seen. AICD was interrogated and did not reveal any discharges from the AICD nor didn' t reveal any significant tachycardia or bradycardia arrhythmias. Echocardiogram with Doppler study was performed which revealed an ejection fraction of 40-45% with basal inferior hypokinesis. Patient was treated with IV fluids and symptomatic treatment and he showed interval improvement and he returned to his baseline Patient was cleared by both cardiology and neurology services for discharge. Physical therapist evaluated patient and recommended subacute rehab, in which the patient and eventually the son too were agreeable to do. Problem and management plan were discussed with patient and he verbalized understanding and acceptance and Patient is found stable and can be discharged to [facility] however he needs follow-up as an outpatient Discharge date exam GENERAL: The patient is alert and oriented x3, not in any acute distress. Well developed, well nourished. HEENT: Pupils are round and equally reacting to light. EOMI. No scleral icterus. No conjunctival pallor. Normocephalic, atraumatic. No pharyngeal erythema. No thyromegaly. CARDIOVASCULAR: S1 and S2 present. No murmurs, rubs, or gallops. PULMONARY: Chest is clear to auscultation, no wheezing or crackles. ABDOMEN: Soft, nontender, nondistended, normoactive bowel sounds. No palpable organomegaly. MUSCULOSKELETAL: No joint swelling or deformity. EXTREMITIES: No cyanosis, clubbing, or pedal edema. NEUROLOGICAL: Gross neurological examination did not reveal any focal deficits. SKIN: No rashes. Time spent more than 35 minutes Patient Condition at Discharge: Fair Plan - Discharge Summary Discharge Rx Participant: No New Discharge Prescriptions: No Action Metoprolol Succinate [Toprol XL] 50 mg PO DAILY Linagliptin [Tradjenta] 5 mg PO DAILY Dutasteride [Avodart] 0.5 mg PO DAILY Atorvastatin [Lipitor] 40 mg PO DAILY Lisinopril [Zestril] 20 mg PO DAILY Aspirin 81 mg PO BID Amiodarone [Cordarone] 100 mg PO DAILY Levothyroxine Sodium [Synthroid] 25 mcg PO DAILY Acetaminophen Tab [Tylenol] 650 mg PO Q6HR PRN #0 tab PRN Reason: Mild Pain Or Fever > 100.5 Carbidopa-Levodopa ER 50-200Mg [Sinemet CR 50-200 mg] 1 each PO TID tablet.er Furosemide [Lasix] 20 mg PO DAILY Discharge Medication List Dutasteride [Avodart] 0.5 mg PO DAILY 11/19/14 [History] Linagliptin [Tradjenta] 5 mg PO DAILY 11/19/14 [History] Metoprolol Succinate [Toprol XL] 50 mg PO DAILY 11/19/14 [History] Aspirin 81 mg PO BID 09/13/15 [History] Atorvastatin [Lipitor] 40 mg PO DAILY 09/13/15 [History] Lisinopril [Zestril] 20 mg PO DAILY 09/13/15 [History] Amiodarone [Cordarone] 100 mg PO DAILY 04/11/16 [History] Levothyroxine Sodium [Synthroid] 25 mcg PO DAILY 04/11/16 [History] Acetaminophen Tab [Tylenol] 650 mg PO Q6HR PRN #0 tab 04/17/16 [Rx] Carbidopa-Levodopa ER 50-200Mg [Sinemet CR 50-200 mg] 1 each PO TID tablet.er 04/17/16 [Rx] Furosemide [Lasix] 20 mg PO DAILY 09/15/17 [History] Follow up Appointment(s)/Referral(s): Ke Crews MD [STAFF PHYSICIAN] - 1 Week (Needs lumbar puncture with large volume drainage) Martín Julien MD [Primary Care Provider] - 09/23/17 2:30 pm Patient Instructions/Handouts: Rhabdomyolysis (DC)
== END 2017-09-18 16:55 | DRG 557 ==
LOC: EC 10:20 → 6SEL 13:02
PROVIDERS: ADMIT Hospitalist; ATTEND Hospitalist
DX: M62.82 Rhabdomyolysis (principal); G93.40 Encephalopathy, unspecified; I50.22 Chronic systolic (congestive) heart failure; J98.11 Atelectasis; G91.9 Hydrocephalus, unspecified; G20 Parkinson's disease; I48.0 Paroxysmal atrial fibrillation; I11.0 Hypertensive heart disease with heart failure; G93.89 Other specified disorders of brain; I25.5 Ischemic cardiomyopathy; E11.9 Type 2 diabetes mellitus without complications; F02.80 Dementia in other diseases classified elsewhere, unspecified severity, without behavioral disturbance, psychotic disturbance, mood disturbance, and anxiety; S00.12XA Contusion of left eyelid and periocular area, initial encounter; S80.212A Abrasion, left knee, initial encounter; R26.81 Unsteadiness on feet; I44.0 Atrioventricular block, first degree; I25.10 Atherosclerotic heart disease of native coronary artery without angina pectoris; H91.90 Unspecified hearing loss, unspecified ear; N28.9 Disorder of kidney and ureter, unspecified; E78.5 Hyperlipidemia, unspecified; I25.2 Old myocardial infarction; R29.6 Repeated falls; E03.9 Hypothyroidism, unspecified; N40.1 Benign prostatic hyperplasia with lower urinary tract symptoms; N39.498 Other specified urinary incontinence; M19.91 Primary osteoarthritis, unspecified site; R77.8 Other specified abnormalities of plasma proteins; K64.9 Unspecified hemorrhoids; Z79.84 Long term (current) use of oral hypoglycemic drugs; Z79.82 Long term (current) use of aspirin; Z79.890 Hormone replacement therapy; Z79.899 Other long term (current) drug therapy; Z86.73 Personal history of transient ischemic attack (TIA), and cerebral infarction without residual deficits; Z87.442 Personal history of urinary calculi; Z95.1 Presence of aortocoronary bypass graft; Z95.5 Presence of coronary angioplasty implant and graft; Z95.810 Presence of automatic (implantable) cardiac defibrillator; Z87.891 Personal history of nicotine dependence; Z98.42 Cataract extraction status, left eye; Z98.41 Cataract extraction status, right eye; Z96.1 Presence of intraocular lens; W01.0XXA Fall on same level from slipping, tripping and stumbling without subsequent striking against object, initial encounter; Y92.002 Bathroom of unspecified non-institutional (private) residence as the place of occurrence of the external cause
CPT/HCPCS: 36415; 70450; 71046; 72125; 72170; 80048; 80053; 81001; 82550; 82553; 84443; 84484; 85025; 85610; 85730; 93005; 93306; 93880; 94760; 95816; 99285

== ENCOUNTER 2018-07-19 08:13 | Observation (INO) | payer MEDICARE, OTHER ==
[2018-07-19] MEDS ORDERED: SODIUM CHLORIDE 0.9% 1,000 ML IV STA (08:17)
[2018-07-19] MEDS ORDERED: SODIUM CHLORIDE 0.9% 500 ML 500 ML IV STA ×2 (08:17→09:48)
--- NOTE | 2018-07-19 08:22 | ED ---
Fall HPI - General Stated Complaint: fall Time Seen by Provider: 07/19/18 08:13 Source: patient, family, EMS, RN notes reviewed, old records reviewed - History of Present Illness Initial Comments: This is a 78-year-old male with a history of multiple medical issues who was brought in for evaluation for falls he apparently is slid out of his recliner chair twice since last evening. He was confused to the date and time but he is aware of other things as far as location. Somewhat lethargic per paramedics. 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 MD Complaint: fall, other - Related Data Home Medications Medication Instructions Recorded Confirmed Dutasteride [Avodart] 0.5 mg PO DAILY 11/19/14 07/19/18 Linagliptin [Tradjenta] 5 mg PO DAILY 11/19/14 07/19/18 Metoprolol Succinate [Toprol XL] 50 mg PO DAILY 11/19/14 07/19/18 Lisinopril [Zestril] 20 mg PO DAILY 09/13/15 07/19/18 Levothyroxine Sodium [Synthroid] 25 mcg PO DAILY 04/11/16 07/19/18 Furosemide [Lasix] 20 mg PO DAILY 09/15/17 07/19/18 Aspirin [[place] Aspirin EC] 81 mg PO DAILY 07/19/18 07/19/18 glipiZIDE [Glucotrol] 5 mg PO DAILY 07/19/18 07/19/18 Previous Rx's Medication Instructions Recorded Carbidopa-Levodopa ER 50-200Mg 1 each PO TID tablet.er 04/17/16 [Sinemet CR 50-200 mg] Allergies Allergy/AdvReac Type Severity Reaction Status Date / Time No Known Allergies Allergy Verified 07/19/18 09:00 Review of Systems ROS Statement: Those systems with pertinent positive or pertinent negative responses have been documented in the HPI. ROS Other: All systems not noted in ROS Statement are negative. Past Medical History Past Medical History: Coronary Artery Disease (CAD), Chest Pain / Angina, Heart Failure, CVA/TIA, Diabetes Mellitus, Hearing Disorder / Deafness, Hyperlipidemia, Hypertension, Myocardial Infarction (SC), Prostate Disorder Additional Past Medical History / Comment(s): CVA 05/2011 and 11/2012,5-20-16 affected rt side, TIA's, parkinsons, ischemic cardiomyopathy with L ventricular ejection fx < 30% ( has AICD), NIDDM type II, BPH, DJD, gait dysfunction/falls, nephrolithiasis, hemorrhiods.falls(at [facility] fell hit head but did'nt seek tx and has fallen since). svt, paroxysmal afib, djd Last Myocardial Infarction Date:: 2004 History of Any Multi-Drug Resistant Organisms: None Reported Past Surgical History: Coronary Bypass/CABG, Heart Catheterization With Stent, Hernia Repair, Pacemaker Additional Past Surgical History / Comment(s): CABG-4 vessel in 2005, AICD 2004 and gen change 11/23/14, bilateral lens implants, lasik eye surgery, L hernia repair Past Anesthesia/Blood Transfusion Reactions: No Reported Reaction Date of Last Stent Placement:: 2007 Type of Cardiac Device: AICD Device Placement Date:: original 2004 with gen change 10/2014 Past Psychological History: No Psychological Hx Reported Additional Psychological History / Comment(s): He has a cane and walker. lives in own home-no longer drives,stated gets meals on wheels Smoking Status: Never smoker Past Alcohol Use History: None Reported Additional Past Alcohol Use History / Comment(s): Pt started smoking in 1989 and quit in 1998. Past Drug Use History: None Reported - Past Family History Father Family Medical History: No Reported History Additional Family Medical History / Comment(s): Father was healthy and at age 84 yrs. Mother Family Medical History: No Reported History Additional Family Medical History / Comment(s): Mother was healthy and at age 82 or 83. General Exam - General Exam Comments Initial Comments: This is a well-developed well-nourished awake alert but lethargic male General appearance: alert, lethargic Head exam: Present: atraumatic, normocephalic, normal inspection Eye exam: Present: normal appearance, PERRL, EOMI. Absent: scleral icterus, conjunctival injection, periorbital swelling ENT exam: Present: mucous membranes dry Neck exam: Present: normal inspection, full ROM, other. Absent: tenderness, meningismus, lymphadenopathy Respiratory exam: Present: normal lung sounds bilaterally. Absent: respiratory distress, wheezes, rales, rhonchi, stridor Cardiovascular Exam: Present: regular rate, normal rhythm, normal heart sounds. Absent: systolic murmur, diastolic murmur, rubs, gallop, clicks GI/Abdominal exam: Present: soft, normal bowel sounds. Absent: distended, tenderness, guarding, rebound, rigid, bruit, pulsatile mass Extremities exam: Present: normal inspection, full ROM, normal capillary refill. Absent: tenderness, pedal edema, joint swelling, calf tenderness Back exam: Present: normal inspection Neurological exam: Present: alert, altered, CN II-XII intact, other (Alert to place and self unsure the time) Psychiatric exam: Present: normal affect, normal mood Skin exam: Present: warm, dry, intact, normal color. Absent: rash Course Vital Signs 07/19/18 07/19/18 08:15 10:16 Temperature 99.3 F Pulse Rate 100 88 Respiratory 18 16 Rate Blood Pressure 127/67 138/83 O2 Sat by Pulse 92 L 96 Oximetry Medical Decision Making - Medical Decision Making The patient has not had chest pain and he complained of. His lab work does demonstrate mild elevation of troponin he will be admitted for IV fluids and cardiology consultation. UA is pending at this time - Lab Data Result diagrams: 07/19/18 08:25 07/19/18 08:25 Lab Results 07/19/18 07/19/18 07/19/18 Range/Units 08:25 08:25 08:25 WBC 7.5 (3.8-10.6) k/uL RBC 4.79 (4.30-5.90) m/uL Hgb 14.3 (13.0-17.5) gm/dL Hct 42.6 (39.0-53.0) % MCV 89.0 (80.0-100.0) fL MCH 29.9 (25.0-35.0) pg MCHC 33.6 (31.0-37.0) g/dL RDW 13.9 (11.5-15.5) % Plt Count 192 (150-450) k/uL Neutrophils % 88 % Lymphocytes % 5 % Monocytes % 4 % Eosinophils % 2 % Basophils % 0 % Neutrophils # 6.6 (1.3-7.7) k/uL Lymphocytes # 0.4 L (1.0-4.8) k/uL Monocytes # 0.3 (0-1.0) k/uL Eosinophils # 0.1 (0-0.7) k/uL Basophils # 0.0 (0-0.2) k/uL Sodium 140 (137-145) mmol/L Potassium 4.0 (3.5-5.1) mmol/L Chloride 107 (98-107) mmol/L Carbon Dioxide 20 L (22-30) mmol/L Anion Gap 13 mmol/L BUN 29 H (9-20) mg/dL Creatinine 1.08 (0.66-1.25) mg/dL Est GFR (CKD-EPI)AfAm 77 (>60 ml/min/1.73 sqM) Est GFR (CKD-EPI)NonAf 66 (>60 ml/min/1.73 sqM) Glucose 251 H (74-99) mg/dL Calcium 9.2 (8.4-10.2) mg/dL Magnesium 1.9 (1.6-2.3) mg/dL Total Bilirubin 0.8 (0.2-1.3) mg/dL AST 27 (17-59) U/L ALT 33 (21-72) U/L Alkaline Phosphatase 85 (38-126) U/L Total Creatine Kinase 181 H (55-170) U/L CK-MB (CK-2) 2.0 (0.0-2.4) ng/mL CK-MB (CK-2) Rel Index 1.1 Troponin I 0.038 H* (0.000-0.034) ng/mL Total Protein 7.0 (6.3-8.2) g/dL Albumin 4.2 (3.5-5.0) g/dL - EKG Data -: EKG Interpreted by Me (The EKG shows normal sinus rhythm a 97 appear interval 200 QRS duration 104) - Radiology Data Radiology results: report reviewed (Review the imaging showed no evidence of ac quechan findings.), image reviewed Disposition Clinical Impression: Fall, Dehydration, Elevated troponin Disposition: ADMITTED IP TO THIS [facility] Condition: Stable Referrals: Martín Julien MD [Primary Care Provider] - 1-2 days
[2018-07-19 08:34] LABS: Basophils % (A) 0 %; Eosinophils # (A) 0.1 k/uL (0-0.7); Eosinophils % (A) 2 %; HCT 42.6 % (39.0-53.0); HGB 14.3 gm/dL (13.0-17.5); Lymphocytes # (A) 0.4 k/uL (1.0-4.8); Lymphocytes % (A) 5 %; MCH 29.9 pg (25.0-35.0); MCHC 33.6 g/dL (31.0-37.0); Mean Platelet Volume 7.5; Monocytes # (A) 0.3 k/uL (0-1.0); Monocytes % (A) 4 %; Neutrophils # (A) 6.6 k/uL (1.3-7.7); Neutrophils % (A) 88 %; Platelet Count 192 k/uL (150-450); RBC 4.79 m/uL (4.30-5.90); RDW 13.9 % (11.5-15.5); WBC 7.5 k/uL (3.8-10.6)
[2018-07-19 08:52] LABS: Albumin 4.2 g/dL (3.5-5.0); Calcium 9.2 mg/dL (8.4-10.2); Magnesium 1.9 mg/dL (1.6-2.3); Total Bilirubin 0.8 mg/dL (0.2-1.3)
[2018-07-19 09:15] LABS: Troponin I 0.038 ng/mL (0.000-0.034)
--- NOTE | 2018-07-19 09:39 | CT ---
EXAMINATION TYPE: CT brain wo con DATE OF EXAM: 07/19/2018 COMPARISON: 09/16/2017 HISTORY: 78-year-old male with pain, Fall, AMS TECHNIQUE: Examination was done in axial plane without intravenous contrast. Coronal and sagittal r econstructions performed. CT DLP: 1121 mGycm Automated exposure control for dose reduction was used. FINDINGS: There is no evidence of acute intracranial hemorrhage, acute ischemic changes, mass, mass-effect, or extra-axial fluid collection. There is no effacement of cerebral sulci or basal subarachnoid cister ns. Redemonstrated mild to moderate ventriculomegaly. Vega ratio is calculated at 0.44. There is no midline shift. Sims-white matter distinction is preserved. Old lacunar infarcts left basal ganglia, encephalomalacia anterior right greater than left bifrontal lobes, and confluent periventricular white matter hypodensities. A new area of subcortical cortical encephalomalacia in the anterior left frontal lobe is new from 08/30. Partially empty sella. Stable mucosal retention cyst floor of the left maxillary sinus. Mastoid air cells are well pneumatiz ed. Orbits and globes are intact. IMPRESSION: 1. Stable [id number] ventriculomegaly. This may in part relate to central cerebral atrophy. Cor relate for possible underlying NPH. 2. Stable bifrontal encephalomalacia could represent sequela of prior vascular or traumatic insults. There has been some progression in chronic small vessel ischemic disease changes as compared to 2017. 3. No acute intracranial abnormality seen.
--- NOTE | 2018-07-19 09:41 | XR ---
EXAMINATION TYPE: XR chest 2V DATE OF EXAM: 07/19/2018 COMPARISON: 09/15/2017 HISTORY: 78-year-old male with cough and altered mental status TECHNIQUE: AP and lateral views FINDINGS: Left anterior chest wall AICD generator with right ventricular lead. Median sternotomy wires are pres ent with post-CABG clips. Mildly enlarged. Diffuse interstitial prominence. No sizable effusion or fr ank consolidation. IMPRESSION: 1. Mild cardiomegaly. 2. Interstitial prominence could represent mild pulmonary vascular congestion or bronchitis/asthma. N o focal infiltrate.
[2018-07-19] MEDS ORDERED: NALOXONE 0.4 MG/ML 1 ML VIAL IV PRN (10:53)
[2018-07-19] MEDS ORDERED: ONDANSETRON 4 MG/2 ML VIAL IVP STA (11:16)
[2018-07-19 12:21] VITALS: BMI 68.9
[2018-07-19] MEDS: CARBIDOPA-LEVODOPA ER 50-200MG 1 EACH TABLET.ER PO SCH ×2 (17:06→20:58)
[2018-07-19] MEDS ORDERED: MAGNESIUM HYDROXIDE 2,400 MG/10 ML CUP PO PRN (17:18)
[2018-07-19] MEDS ORDERED: MELATONIN 3 MG TABLET PO PRN (17:18)
[2018-07-19] MEDS ORDERED: LACTULOSE 20 GM/30 ML CUP PO PRN (17:18)
[2018-07-19] MEDS ORDERED: ALPRAZolam 0.25 MG TAB PO PRN (17:18)
[2018-07-19] MEDS ORDERED: ACETAMINOPHEN TAB 325 MG TAB PO PRN (17:18)
[2018-07-19 17:37] LABS: Glucose,Whole Blood 166 mg/dL (75-99)
--- NOTE | 2018-07-19 18:51 | HP ---
HISTORY AND PHYSICAL DATE OF ADMISSION: 07/19/2018 DATE OF SERVICE: 07/19/2018 PRESENTING COMPLAINT: Slipping out of recliner, tired. HISTORY OF PRESENTING COMPLAINT: This is a pleasant 78-year-old patient who is a resident of [facility] with an extensive medical history. Chronic stable medical conditions include coronary artery disease, congestive heart failure, diabetes, hyperlipidemia, hypertension, Parkinson disease, ischemic cardiomyopathy, EF less than 30%, chronic gait dysfunction, hemorrhoids. The patient has a walker. Lives at [facility]. The patient recently had a skin lesion removed about a week ago and since then has been feeling rather more lethargic, tired, in fact he slid out of the recliner twice. The patient himself is not able to give much of a history. Starts to speak and then slows down. Speech is very slow. Patient has been rather slow too. Hence patient was admitted for the same. The patient's appetite is okay. REVIEW OF SYSTEMS: Difficult to obtain. CONSTITUTIONAL: Tired. HEENT: Decreased hearing. RESPIRATORY: None. CARDIOVASCULAR: None. GASTROINTESTINAL: None. GENITOURINARY: None. MUSCULOSKELETAL: Weakness in the limbs. DERMATOLOGICAL, HEMATOLOGIC, LYMPHATIC: None. PSYCHIATRY: Difficult to assess. NEUROLOGICAL: Weakness in all 4 limbs. PAST MEDICAL HISTORY: Coronary artery disease, heart failure, stroke, diabetes, hyperlipidemia, hypertension, myocardial infarction, prostate disorder, stroke in 2011 and 2012 affecting the right side, TIAs, Parkinson disease, ischemic cardiomyopathy, left ventricular function less than 30%, BPH, nephrolithiasis, hemorrhoids, falls, paroxysmal atrial fibrillation. PAST SURGICAL HISTORY: Coronary artery bypass stent, 4-vessel bypass 2005, AICD, bilateral lens implant, left hernia repair. SOCIAL HISTORY: Patient has a scooter, walker, lives at [facility]. Smoked from 2009-2777. No alcohol. FAMILY HISTORY: Father was healthy, age of 84. HOME MEDICATIONS: 1. Glucotrol 5 mg a day. 2. Toprol-XL 50 mg a day. 3. Zestril 20 mg p.o. daily. 4. Tradjenta 5 mg p.o. daily. 5. Synthroid 25 mcg a day. 6. Lasix 20 mg a day. 7. Avodart 0.5 mg a day. 8. Sinemet CR 50/200 one tablet p.o. t.i.d. 9. Aspirin 81 mg a day. ALLERGIES: None. PHYSICAL EXAMINATION: VITAL SIGNS: Vital signs on presentation: Temperature 99.3, pulse 100, respiratory 18, blood pressure 127/69, pulse ox 92 percent on room air. GENERAL APPEARANCE: BMI 68.9. Lying in bed, tired appearing. EYES: Pupils equal. Conjunctivae normal. HEENT: External appearance of nose and ears normal. Oral cavity normal. NECK: JVD unable to assess. Mass not palpable. RESPIRATORY: Effort normal. LUNGS: Slightly decreased breath sounds. CARDIOVASCULAR: First and second sounds no edema. ABDOMEN: Soft, nontender. Liver and spleen not palpable. LYMPHATICS: No lymph nodes palpable in the neck or axilla. PSYCHIATRY: Unable to assess. Speech is very slow. NEUROLOGICAL: Pupils equal. No facial asymmetry. Speech is slow. There is bradykinesia, questionable tremors. INVESTIGATIONS: White count 7.5, hemoglobin 14.3, potassium 4.0, BUN 29, creatinine 1.08. Troponin 0.038, 0.033. ASSESSMENT: 1. This is a patient who has become rather slow and sleeping on a recliner and with known Parkinson disease. This is probably worsening of his Parkinson disease with bradykinesia, and speech is also very slow. 2. AICD. 3. Chronic congestive heart failure from systolic dysfunction, EF not known. 4. Paroxysmal atrial fibrillation currently in sinus rhythm. 5. Diabetes mellitus type 2. 6. Hyperlipidemia. 7. Essential hypertension. 8. Coronary artery disease with prior history of stent and bypass. 9. Cognitive impairment from underlying Parkinson disease. 10.Gait dysfunction at baseline uses a walker and scooter. 11.Dehydration with elevated BUN and decreased oral intake. PLAN: We will stop patient's Lasix, hydrate the patient. Get PT/OT. Continue with antiparkinson medicines and other medications. The patient should slowly improve with the same. I do not believe this to be an active cardiac event. Cardiology opinion was sought. Copy to Dr. Martín Julien. MMODL / ADAM: [id number] /
[2018-07-19] MEDS: LACTATED RINGERS 1,000 ML IV SCH (20:58)
[2018-07-20] MEDS: CARBIDOPA-LEVODOPA ER 50-200MG 1 EACH TABLET.ER PO SCH ×2 (08:05→16:43)
[2018-07-20] MEDS: LACTATED RINGERS 1,000 ML IV SCH (08:05)
[2018-07-20 08:06] LABS: Glucose,Whole Blood 219 mg/dL (75-99)
[2018-07-20] MEDS ORDERED: METOPROLOL SUCCINATE (ER) 50 MG TAB.ER.24H PO SCH (09:00)
[2018-07-20] MEDS ORDERED: LEVOTHYROXINE 25 MCG TAB PO SCH (09:00)
[2018-07-20] MEDS ORDERED: glipiZIDE 5 MG TAB PO SCH (09:00)
[2018-07-20] MEDS ORDERED: FINASTERIDE 5 MG TAB PO SCH (09:00)
[2018-07-20] MEDS ORDERED: LINAGLIPTIN 5 MG TABLET PO SCH (09:00)
[2018-07-20] MEDS ORDERED: LISINOPRIL 20 MG TAB PO SCH (09:00)
[2018-07-20] MEDS ORDERED: ASPIRIN 81 MG PO SCH (09:00)
[2018-07-20] MEDS ORDERED: FUROSEMIDE 20 MG TAB PO SCH (09:00)
[2018-07-20 09:26] VITALS: RESP 18
[2018-07-20 11:11] VITALS: TEMP 97.6
[2018-07-20 11:30] LABS: Glucose,Whole Blood 175 mg/dL (75-99)
--- NOTE | 2018-07-20 12:56 | CONS ---
CONSULTATION CHIEF COMPLAINT: Elevated troponin. HISTORY OF PRESENT ILLNESS: Mr. Up is a 78-year-old gentleman who lives at an assisted care facility, comes in having had a fall. Cardiology had been consulted because of elevated troponin. At the time of my evaluation this morning, patient appears comfortable at rest. He is only alert, oriented x2 and is not able to give much meaningful history. His elevated troponins for which I have been consulted are essentially normal. The first set was 0.038. All the others have been essentially within normal limits. The mild elevation in the admission troponin is not responsible for the fall. The fall does not seem to be a syncopal event. There is no suggestion that the patient actually passed out. His EKG shows evidence of prior extensive inferior wall myocardial infarction and also extensive inferolateral myocardial infarction. It is unclear if the patient had prior cardiac workup or not. I looked at his previous EKG and an EKG done in August of 2017 also showed an inferior myocardial infarction. An echocardiogram done at that time showed LV systolic dysfunction with an ejection fraction of 40-45 percent secondary to the myocardial infarction. The patient also has parkinsonism. PAST MEDICAL HISTORY: Significant for coronary artery disease, parkinsonism, congestive heart failure, diabetes, hypertension, dyslipidemia, chronic gait dysfunction. REVIEW OF SYSTEMS: I am unable to obtain from the patient who appears confused. MEDICATIONS: At home included Toprol-XL 50 daily, lisinopril 20 daily. Tradjenta, Synthroid, Lasix, Avodart, Sinemet, aspirin and glipizide. ALLERGIES: There are no known drug allergies. FAMILY HISTORY: Negative for premature coronary artery disease. SOCIAL HISTORY: Negative for current smoking, EtOH abuse or drug abuse. REVIEW OF SYSTEMS: HEENT is unremarkable. Cardiac as described above. Respiratory as described above. GI negative. Genitourinary negative. Allergy/Immunology: None. Skin negative. Musculoskeletal significant for parkinsonism. Psychosocial negative. Endocrine: Negative. CONSTITUTIONAL negative. Derm negative. Oncological negative. Rest of the system review is not relevant. PHYSICAL EXAM: Patient is comfortable at rest. Afebrile. Heart rate is 80 beats per minute. Blood pressure is 150/87, respiratory rate 18. Chest exam reveals good air entry bilaterally. Heart exam reveals first and second heart sounds. No gallop. Has a systolic murmur at the left lower sternal border. Abdomen is soft. Exam of extremities did not reveal any edema. LAB: Show that the hemoglobin is 14.3, potassium is 4, creatinine is 1. Troponins only the first set of troponin is mildly elevated. BUN is slightly elevated. ASSESSMENT: 1. Troponin elevation of unclear clinical significance. This patient did not have myocardial infarction. 2. Fall, probably related to parkinsonism and gait issues. 3. History of hypertension. 4. Dyslipidemia. 5. Ischemic cardiomyopathy. PLAN: I will obtain a 2D echo on him to evaluate his LV function. Please be careful as you hydrate the patient so that you do not fluid overload the patient. The patient does not require further workup for the elevated troponin. Thank you for giving us the privilege to participate in the care of this pleasant gentleman. MMODL / IJN: [id number] /
[2018-07-20 16:36] VITALS: BP 145/94; PULSE 75
[2018-07-20 16:42] LABS: Glucose,Whole Blood 171 mg/dL (75-99)
--- NOTE | 2018-07-21 05:26 | DS ---
DISCHARGE SUMMARY DATE OF ADMISSION: 07/19/2018 DATE OF DISCHARGE: 07/20/2018 FINAL DIAGNOSES: 1. Acute exacerbation of Parkinson disease leading to fall and acute dysarthria. 2. AICD. 3. Chronic congestive heart failure from systolic dysfunction function, EF not known. 4. Paroxysmal atrial fibrillation, currently in sinus rhythm. 5. Diabetes mellitus type 2. 6. Hyperlipidemia. 7. Essential hypertension. 8. Coronary artery disease with prior history of stent and bypass. 9. Cognitive impairment from underlying Parkinson disease. 10.Gait dysfunction at baseline uses a walker and scooter. 11.Dehydration with elevated BUN and creatinine on presentation. 12.Troponin leak due to hemodynamic mismatch, not acute coronary syndrome. HOSPITAL COURSE: This patient recently had a skin procedure done and following that was noted to be more tired, lethargic, not eating, presented with slipping out of the recliner twice. The patient's Parkinson's had flared up causing both dysphagia, dysarthria. With hydration patient's speech became greatly improved. The patient is tolerating a diet and back to his baseline. At baseline, patient uses a walker and primarily a scooter. CONSULTATION: Dr. Perlita Ferguson from Cardiology. PHYSICAL EXAMINATION: VITAL SIGNS: Temperature 97.6, pulse 75, respiratory rate 18, blood pressure 140/94, pulse ox 97% on 2 L. Cardiovascular: 1st and 2nd sounds normal. The patient able to carry out conversation. No rigidity. INVESTIGATIONS: Accu-Cheks are noted. BUN was 29, creatinine 1.0 on admission. DISCHARGE MEDICATIONS: 1. Avodart 0.5 mg a day. 2. Tradjenta 5 mg a day. 3. Toprol-XL 50 mg daily. 4. Zestril 20 mg p.o. daily. 5. Synthroid 25 mcg a day. 6. Sinemet CR 50/200 one tablet p.o. t.i.d. 7. Lasix 20 mg a day. 8. Aspirin 81 mg a day. 9. Glucotrol 5 mg p.o. daily. FOLLOWUP: Follow up with Dr. Julien in 2 days. DISPOSITION: To [facility]. Discussion and discharge planning more than [address] Julien. MMHILLL / RUPINDERN: [id number] /
== END 2018-07-20 18:42 | disposition home or self-care (01) ==
LOC: EC 08:13 → 3SCARD 10:54
PROVIDERS: ADMIT Hospitalist; ATTEND Hospitalist
DX: G20 Parkinson's disease (principal); E86.0 Dehydration; I11.0 Hypertensive heart disease with heart failure; I50.22 Chronic systolic (congestive) heart failure; I48.0 Paroxysmal atrial fibrillation; E11.9 Type 2 diabetes mellitus without complications; E78.5 Hyperlipidemia, unspecified; I25.10 Atherosclerotic heart disease of native coronary artery without angina pectoris; R26.9 Unspecified abnormalities of gait and mobility; R47.1 Dysarthria and anarthria; R79.89 Other specified abnormal findings of blood chemistry; R13.10 Dysphagia, unspecified; I25.5 Ischemic cardiomyopathy; R41.0 Disorientation, unspecified; R29.6 Repeated falls; N40.0 Benign prostatic hyperplasia without lower urinary tract symptoms; K64.9 Unspecified hemorrhoids; H91.90 Unspecified hearing loss, unspecified ear; M19.90 Unspecified osteoarthritis, unspecified site; I47.1 Supraventricular tachycardia; G93.89 Other specified disorders of brain; Z79.84 Long term (current) use of oral hypoglycemic drugs; Z79.82 Long term (current) use of aspirin; Z79.890 Hormone replacement therapy; Z79.899 Other long term (current) drug therapy; Z95.810 Presence of automatic (implantable) cardiac defibrillator; Z95.1 Presence of aortocoronary bypass graft; Z95.5 Presence of coronary angioplasty implant and graft; Z87.891 Personal history of nicotine dependence; Z86.73 Personal history of transient ischemic attack (TIA), and cerebral infarction without residual deficits; I25.2 Old myocardial infarction; Z87.442 Personal history of urinary calculi
CPT/HCPCS: 96361 ×3; 96360; 99285; 36415; 93005; 97530; 97162; 80053; 82550; 82553; 83735; 84484 ×2; 85025; 71046; 70450; G0378 ×2; S0138; J2405

== ENCOUNTER 2018-07-21 10:24 | Emergency (ER) | payer MEDICARE, OTHER ==
[2018-07-21] MEDS ORDERED: SODIUM CHLORIDE 0.9% 1,000 ML IV ONE ×2 (11:27→13:30)
--- NOTE | 2018-07-21 11:35 | ED ---
Fall HPI - General Chief Complaint: Fall Stated Complaint: Fall, Confusion, Fever Time Seen by Provider: 07/21/18 10:39 Source: patient, EMS, RN notes reviewed, old records reviewed Mode of arrival: EMS - History of Present Illness Initial Comments: Patient is a 78-year-old male presents emergency Department today with complaints of unwitnessed fall. Patient has been recently admitted for similar complaints and elevated troponin. He is discharged from the hospital back to [facility] yesterday. Patient's caregiver found him lying on the ground. He states that he lost his footing while getting out of bed. Patient has history of Parkinson's disease and dementia. At this time he denies any complaints of pain. Patient states that he has had no recent fevers or chills. Patient reports that he's been progressively weak over the past few days. Patient was on the ground for approximately one to 2 hours. - Related Data Home Medications Medication Instructions Recorded Confirmed Dutasteride [Avodart] 0.5 mg PO DAILY 11/19/14 07/21/18 Linagliptin [Tradjenta] 5 mg PO DAILY 11/19/14 07/21/18 Metoprolol Succinate [Toprol XL] 50 mg PO DAILY 11/19/14 07/21/18 Lisinopril [Zestril] 20 mg PO DAILY 09/13/15 07/21/18 Levothyroxine Sodium [Synthroid] 25 mcg PO DAILY 04/11/16 07/21/18 Furosemide [Lasix] 20 mg PO DAILY 09/15/17 07/21/18 Aspirin [[place] Aspirin EC] 81 mg PO DAILY 07/19/18 07/21/18 glipiZIDE [Glucotrol] 5 mg PO DAILY 07/19/18 07/21/18 Carbidopa-Levodopa ER 50-200Mg 1 tab PO TID 07/21/18 07/21/18 [Sinemet CR 50-200 mg] Allergies Allergy/AdvReac Type Severity Reaction Status Date / Time No Known Allergies Allergy Verified 07/21/18 10:57 Review of Systems ROS Statement: Those systems with pertinent positive or pertinent negative responses have been documented in the HPI. ROS Other: All systems not noted in ROS Statement are negative. 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 svt, paroxysmal afib, djd Last Myocardial Infarction Date:: 2004 History of Any Multi-Drug Resistant Organisms: None Reported Past Surgical History: Coronary Bypass/CABG, Heart Catheterization With Stent, Hernia Repair, Pacemaker Additional Past Surgical History / Comment(s): CABG-4 vessel in 2005, AICD 2004 and gen change 11/23/14, bilateral lens implants, lasik eye surgery, L hernia repair Past Anesthesia/Blood Transfusion Reactions: No Reported Reaction Date of Last Stent Placement:: 2007 Type of Cardiac Device: AICD Device Placement Date:: original 2004 with gen change 10/2014 Past Psychological History: No Psychological Hx Reported Smoking Status: Former smoker Past Alcohol Use History: None Reported Past Drug Use History: None Reported - Past Family History Father Family Medical History: No Reported History Additional Family Medical History / Comment(s): Father was healthy and at age 84 yrs. Mother Family Medical History: No Reported History Additional Family Medical History / Comment(s): Mother was healthy and at age 82 or 83. General Exam Limitations: altered mental status General appearance: alert, in no apparent distress Head exam: Present: atraumatic, normocephalic, normal inspection Eye exam: Present: normal appearance, PERRL, EOMI. Absent: scleral icterus, conjunctival injection, periorbital swelling ENT exam: Present: normal exam, mucous membranes moist Neck exam: Present: normal inspection. Absent: tenderness, meningismus, lymphadenopathy Respiratory exam: Present: normal lung sounds bilaterally. Absent: respiratory distress, wheezes, rales, rhonchi, stridor Cardiovascular Exam: Present: regular rate, normal rhythm, normal heart sounds. Absent: systolic murmur, diastolic murmur, rubs, gallop, clicks GI/Abdominal exam: Present: soft, normal bowel sounds. Absent: distended, tenderness, guarding, rebound, rigid Extremities exam: Present: normal inspection, full ROM, normal capillary refill. Absent: tenderness, pedal edema, joint swelling, calf tenderness Back exam: Present: normal inspection Neurological exam: Present: alert, oriented X3, CN II-XII intact Psychiatric exam: Present: normal affect, normal mood Skin exam: Present: warm, dry, intact, normal color. Absent: rash Course Vital Signs 07/21/18 07/21/18 07/21/18 10:27 10:33 12:20 Temperature 98.6 F Pulse Rate 94 94 Respiratory 16 Rate Blood Pressure 120/62 127/72 O2 Sat by Pulse 91 L 94 L Oximetry 07/21/18 07/21/18 07/21/18 13:00 13:20 13:39 Temperature Pulse Rate 93 84 87 Respiratory 21 19 18 Rate Blood Pressure 121/68 114/62 O2 Sat by Pulse 93 L 90 L 95 Oximetry 07/21/18 15:52 Temperature 98.1 F Pulse Rate 80 Respiratory 18 Rate Blood Pressure 129/81 O2 Sat by Pulse 95 Oximetry Medical Decision Making - Medical Decision Making Patient is a 78-year-old male presents emergency Department today with complaints of unwitnessed fall. Patient has been recently admitted for similar complaints and elevated troponin. He is discharged from the hospital back to [facility] yesterday. Patient's caregiver found him lying on the ground. He states that he lost his footing while getting out of bed. Patient has history of Parkinson's disease and dementia. He deines pain. Patient is pleasantly confused and demented. CT brain is normal, no extremity injury. Patient labs were normal. Dsicussed this is likely progresion of parkinson. Discussed at length with family pt may benefit from ECF. All questions answered, return parameters discussed. - Lab Data Result diagrams: 07/21/18 12:00 07/21/18 12:00 Lab Results 07/21/18 07/21/18 07/21/18 Range/Units 12:00 12:00 12:00 WBC 10.6 (3.8-10.6) k/uL RBC 4.10 L (4.30-5.90) m/uL Hgb 12.7 L (13.0-17.5) gm/dL Hct 36.7 L (39.0-53.0) % MCV 89.5 (80.0-100.0) fL MCH 31.0 (25.0-35.0) pg MCHC 34.6 (31.0-37.0) g/dL RDW 13.2 (11.5-15.5) % Plt Count 190 (150-450) k/uL Neutrophils % 85 % Lymphocytes % 7 % Monocytes % 6 % Eosinophils % 1 % Basophils % 0 % Neutrophils # 8.9 H (1.3-7.7) k/uL Lymphocytes # 0.7 L (1.0-4.8) k/uL Monocytes # 0.7 (0-1.0) k/uL Eosinophils # 0.1 (0-0.7) k/uL Basophils # 0.0 (0-0.2) k/uL PT 10.7 (9.0-12.0) sec INR 1.0 (<1.2) APTT 18.9 L (22.0-30.0) sec Sodium 138 (137-145) mmol/L Potassium 4.1 (3.5-5.1) mmol/L Chloride 106 (98-107) mmol/L Carbon Dioxide 24 (22-30) mmol/L Anion Gap 8 mmol/L BUN 21 H (9-20) mg/dL Creatinine 0.91 (0.66-1.25) mg/dL Est GFR (CKD-EPI)AfAm >90 (>60 ml/min/1.73 sqM) Est GFR (CKD-EPI)NonAf 82 (>60 ml/min/1.73 sqM) Glucose 244 H (74-99) mg/dL Calcium 9.0 (8.4-10.2) mg/dL Total Bilirubin 1.0 (0.2-1.3) mg/dL AST 21 (17-59) U/L ALT 25 (21-72) U/L Alkaline Phosphatase 85 (38-126) U/L Troponin I (0.000-0.034) ng/mL Total Protein 6.1 L (6.3-8.2) g/dL Albumin 3.6 (3.5-5.0) g/dL Urine Color Urine Appearance (Clear) Urine pH (5.0-8.0) Ur Specific [place] (1.001-1.035) Urine Protein (Negative) Urine Glucose (UA) (Negative) Urine Ketones (Negative) Urine Blood (Negative) Urine Nitrite (Negative) Urine Bilirubin (Negative) Urine Urobilinogen (<2.0) mg/dL Ur Leukocyte Esterase (Negative) Urine RBC (0-5) /hpf Urine WBC (0-5) /hpf Urine Mucus (None) /hpf 07/21/18 07/21/18 Range/Units 12:00 Unknown WBC (3.8-10.6) k/uL RBC (4.30-5.90) m/uL Hgb (13.0-17.5) gm/dL Hct (39.0-53.0) % MCV (80.0-100.0) fL MCH (25.0-35.0) pg MCHC (31.0-37.0) g/dL RDW (11.5-15.5) % Plt Count (150-450) k/uL Neutrophils % % Lymphocytes % % Monocytes % % Eosinophils % % Basophils % % Neutrophils # (1.3-7.7) k/uL Lymphocytes # (1.0-4.8) k/uL Monocytes # (0-1.0) k/uL Eosinophils # (0-0.7) k/uL Basophils # (0-0.2) k/uL PT (9.0-12.0) sec INR (<1.2) APTT (22.0-30.0) sec Sodium (137-145) mmol/L Potassium (3.5-5.1) mmol/L Chloride (98-107) mmol/L Carbon Dioxide (22-30) mmol/L Anion Gap mmol/L BUN (9-20) mg/dL Creatinine (0.66-1.25) mg/dL Est GFR (CKD-EPI)AfAm (>60 ml/min/1.73 sqM) Est GFR (CKD-EPI)NonAf (>60 ml/min/1.73 sqM) Glucose (74-99) mg/dL Calcium (8.4-10.2) mg/dL Total Bilirubin (0.2-1.3) mg/dL AST (17-59) U/L ALT (21-72) U/L Alkaline Phosphatase (38-126) U/L Troponin I 0.014 (0.000-0.034) ng/mL Total Protein (6.3-8.2) g/dL Albumin (3.5-5.0) g/dL Urine Color Yellow Urine Appearance Clear (Clear) Urine pH 5.5 (5.0-8.0) Ur Specific [place] 1.033 (1.001-1.035) Urine Protein 1+ H (Negative) Urine Glucose (UA) 3+ H (Negative) Urine Ketones 1+ H (Negative) Urine Blood Moderate H (Negative) Urine Nitrite Negative (Negative) Urine Bilirubin Negative (Negative) Urine Urobilinogen 3.0 (<2.0) mg/dL Ur Leukocyte Esterase Trace H (Negative) Urine RBC >182 H (0-5) /hpf Urine WBC 3 (0-5) /hpf Urine Mucus Rare H (None) /hpf 07/21/18 12:20 EKG shows normal sinus rhythm left axis deviation. Lateral infarct age undetermined. Inferior infarct age.. Ventricular rate of 91 bpm. Was 182 ms. QRS duration 104 ms. QT QTc is 358/440 ms. - Radiology Data Radiology results: report reviewed Chest x-rays negative for any acute croup on a disease. CT of the C-spine shows no evidence of fracture or subluxation. CT of the brain shows age related atrophy acting chronic small vessel ischemic change without acute intracranial process seen at this time. Correlate for normal pressure hydrocephalus. Disposition Clinical Impression: Fall Disposition: HOME SELF-CARE Condition: Good Instructions (If sedation given, give patient instructions): Fall Prevention for Older Adults (ED) Additional Instructions: Follow-up with primary care physician. Return to emergency department if any alarming signs or symptoms occur. Is patient prescribed a controlled substance at d/c from ED?: No Referrals: Martín Julien MD [Primary Care Provider] - 1-2 days Time of Disposition: 15:46
--- NOTE | 2018-07-21 11:51 | CT ---
EXAMINATION TYPE: CT brain justen roberts DATE OF EXAM: 07/21/2018 COMPARISON: 07/19/2018 HISTORY: pain post fall CT DLP: 1619.[address] of the brain was performed. The ventricles, basal cisterns and sulci overlying the cerebral convexities demonstrate moderate enla rgement. There is no evidence for intracranial hemorrhage or sulcal effacement. There is decreased attenuatio n about the periventricular white matter and deep white matter of both cerebral hemispheres, compatib le with chronic small vessel ischemia. No mass effects are seen. If symptoms persist consider MRI. Osseous calvarium is intact. IMPRESSION: 1. Age related atrophic and chronic small vessel ischemic change without acute intracranial process seen at this time. Correlate for normal pressure hydrocephalus. CT Cervical Spine: Unenhanced CT of the cervical spine was performed with bone and soft tissue window settings submitted . Coronal and sagittal reconstruction is obtained. There is normal alignment and prevertebral soft tissues. No evidence for acute cervical fracture . Scattered degenerative disc disease and spondylosis. Biapical scarring. IMPRESSION: 1. No evidence for acute fracture or subluxation of the cervical spine.
[2018-07-21 12:28] LABS: Basophils % (A) 0 %; Eosinophils # (A) 0.1 k/uL (0-0.7); Eosinophils % (A) 1 %; HCT 36.7 % (39.0-53.0); HGB 12.7 gm/dL (13.0-17.5); Lymphocytes # (A) 0.7 k/uL (1.0-4.8); Lymphocytes % (A) 7 %; MCHC 34.6 g/dL (31.0-37.0); MCV 89.5 fL (80.0-100.0); Mean Platelet Volume 8.3; Monocytes # (A) 0.7 k/uL (0-1.0); Monocytes % (A) 6 %; Neutrophils # (A) 8.9 k/uL (1.3-7.7); Neutrophils % (A) 85 %; Platelet Count 190 k/uL (150-450); RDW 13.2 % (11.5-15.5); WBC 10.6 k/uL (3.8-10.6)
[2018-07-21 12:38] LABS: ALT 25 U/L (21-72); AST 21 U/L (17-59); Albumin 3.6 g/dL (3.5-5.0); Alkaline Phosphatase 85 U/L (38-126); Anion Gap 8 mmol/L; Blood Urea Nitrogen 21 mg/dL (9-20); Carbon Dioxide 24 mmol/L (22-30); Chloride 106 mmol/L (98-107); Glucose 244 mg/dL (74-99); Potassium 4.1 mmol/L (3.5-5.1); Sodium 138 mmol/L (137-145); Total Protein 6.1 g/dL (6.3-8.2)
[2018-07-21 12:42] LABS: Prothrombin Time 10.7 sec (9.0-12.0)
[2018-07-21 12:48] LABS: Partial Thromboplastin Time 18.9 sec (22.0-30.0)
--- NOTE | 2018-07-21 12:55 | XR ---
EXAMINATION TYPE: XR chest 2V DATE OF EXAM: 07/21/2018 COMPARISON: 07/19/2018 HISTORY: Shortness of breath TECHNIQUE: Frontal and lateral views of the chest are obtained. FINDINGS: Scattered senescent parenchymal changes noted. Hyperinflation compatible with COPD. No evidence for infiltrate. No evidence for atelectasis. Heart size is stable. Mediastinal structures are stable and grossly unremarkable. No evidence for hilar prominence. Degenerative changes dorsal spine. IMPRESSION: 1. No evidence for acute pulmonary disease.
[2018-07-21 13:40] VITALS: RESP 18
[2018-07-21 15:05] LABS: Appearance,Urine Clear (Clear); Bilirubin,Urine Negative (Negative); Blood,Urine Moderate (Negative); Color,Urine Yellow; Glucose,Urine (UA) 3+ (Negative); Ketones,Urine 1+ (Negative); Leukocyte Esterase,Urine Trace (Negative); Mucus,Urine Rare /hpf; Nitrite,Urine Negative (Negative); PH, Urine 5.5 (5.0-8.0); Protein,Urine 1+ (Negative); RBC,Urine >182 /hpf (0-5); Specific Gravity,Urine 1.033 (1.001-1.035); WBC,Urine 3 /hpf (0-5)
[2018-07-21 15:53] VITALS: BP 129/81; PULSE 80; TEMP 98.1
== END 2018-07-21 15:58 | disposition home or self-care (01) ==
LOC: EC 10:24
DX: Z04.3 Encounter for examination and observation following other accident (principal); I25.119 Atherosclerotic heart disease of native coronary artery with unspecified angina pectoris; I11.0 Hypertensive heart disease with heart failure; I50.9 Heart failure, unspecified; E11.9 Type 2 diabetes mellitus without complications; G20 Parkinson's disease; F02.80 Dementia in other diseases classified elsewhere, unspecified severity, without behavioral disturbance, psychotic disturbance, mood disturbance, and anxiety; I25.2 Old myocardial infarction; I48.0 Paroxysmal atrial fibrillation; Z79.84 Long term (current) use of oral hypoglycemic drugs; Z79.82 Long term (current) use of aspirin; Z79.890 Hormone replacement therapy; Z79.899 Other long term (current) drug therapy; Z95.0 Presence of cardiac pacemaker; Z95.1 Presence of aortocoronary bypass graft; Z95.5 Presence of coronary angioplasty implant and graft; Z87.891 Personal history of nicotine dependence; Z86.73 Personal history of transient ischemic attack (TIA), and cerebral infarction without residual deficits; W19.XXXA Unspecified fall, initial encounter
CPT/HCPCS: 36415; 70450; 71046; 72125; 80053; 81001; 84484; 85025; 85610; 85730; 93005; 96360; 96361; 99285

== ENCOUNTER 2018-10-30 20:50 | Emergency (ER) | payer MEDICARE, OTHER ==
[2018-10-30 21:06] VITALS: TEMP 97.9
--- NOTE | 2018-10-30 21:39 | ED ---
Fall HPI - General Chief Complaint: Fall Stated Complaint: Fall Time Seen by Provider: 10/30/18 20:53 Source: patient, EMS Mode of arrival: EMS - History of Present Illness Initial Comments: This patient is a 78-year-old man with history of Parkinson's disease who states that he does occasionally fall. He presents to be evaluated after he had a fall tonight at home. This was approximately 2 hours ago. He states that he had gotten up to changes setting on the television then lost his balance and fell onto his back. He indicates mid to low back pain. He states he was sub sequently able to get up and stand with assistance. He denies any loss consciousness in the fall he denies any other trauma. There was no syncope. Patient declines analgesic at initial history and physical MD Complaint: fall Onset/Timin -: hour(s) Fall From: standing When Fall Occurred: 1-[address] [address] Fall Occurred: home Loss of Consciousness: none Prolonged Down Time?: no Symptoms Prior to Fall: none Location: back Quality: aching Context: history of frequent falls Associated Symptoms: denies - Related Data Home Medications Medication Instructions Recorded Confirmed Dutasteride [Avodart] 0.5 mg PO DAILY 11/19/14 10/30/18 Linagliptin [Tradjenta] 5 mg PO DAILY 11/19/14 10/30/18 Metoprolol Succinate [Toprol XL] 50 mg PO DAILY 11/19/14 10/30/18 Lisinopril [Zestril] 20 mg PO DAILY 09/13/15 10/30/18 Levothyroxine Sodium [Synthroid] 25 mcg PO DAILY 04/11/16 10/30/18 Furosemide [Lasix] 20 mg PO DAILY 09/15/17 10/30/18 Aspirin [[employer] Aspirin EC] 81 mg PO DAILY 07/19/18 10/30/18 glipiZIDE [Glucotrol] 5 mg PO DAILY 07/19/18 10/30/18 Carbidopa-Levodopa ER 50-200Mg 1 tab PO TID 07/21/18 10/30/18 [Sinemet CR 50-200 mg] Allergies Allergy/AdvReac Type Severity Reaction Status Date / Time No Known Allergies Allergy Verified 10/30/18 21:21 Review of Systems ROS Statement: Those systems with pertinent positive or pertinent negative responses have been documented in the HPI. ROS Other: All systems not noted in ROS Statement are negative. Constitutional: Denies: fever Eyes: Denies: vision change Respiratory: Denies: cough, dyspnea Cardiovascular: Denies: chest pain, palpitations, syncope Gastrointestinal: Denies: abdominal pain, vomiting, diarrhea Genitourinary: Denies: dysuria, hematuria Musculoskeletal: Reports: as per HPI, back pain. Denies: arthralgia Skin: Denies: rash Neurological: Denies: headache, weakness Past Medical History Past Medical History: Coronary Artery Disease (CAD), Chest Pain / Angina, Heart Failure, CVA/TIA, Diabetes Mellitus, Hearing Disorder / Deafness, Hyperlipidemia, Hypertension, Myocardial Infarction ([place]), Prostate Disorder Additional Past Medical History / Comment(s): CVA 05/2011 and 11/2012,08-19-15 affected rt side, TIA's, parkinsons, ischemic cardiomyopathy with L ventricular ejection fx < 30% ( has AICD), NIDDM type II, BPH, DJD, gait dysfunction/falls, nephrolithiasis, hemorrhiods.falls(at [facility] fell hit head but did'nt seek tx and has fallen since). svt, paroxysmal afib, djd Last Myocardial Infarction Date:: 2004 History of Any Multi-Drug Resistant Organisms: None Reported Past Surgical History: Coronary Bypass/CABG, Heart Catheterization With Stent, Hernia Repair, Pacemaker Additional Past Surgical History / Comment(s): CABG-4 vessel in 2005, AICD 2004 and gen change 11/23/14, bilateral lens implants, lasik eye surgery, L hernia repair Past Anesthesia/Blood Transfusion Reactions: No Reported Reaction Date of Last Stent Placement:: 2007 Type of Cardiac Device: AICD Device Placement Date:: original 2004 with gen change 10/2014 Past Psychological History: No Psychological Hx Reported Smoking Status: Former smoker Past Alcohol Use History: None Reported Past Drug Use History: None Reported - Past Family History Father Family Medical History: No Reported History Additional Family Medical History / Comment(s): Father was healthy and at age 84 yrs. Mother Family Medical History: No Reported History Additional Family Medical History / Comment(s): Mother was healthy and at age 82 or 83. General Exam General appearance: alert, in no apparent distress Head exam: Present: atraumatic, normocephalic Eye exam: Present: normal appearance. Absent: scleral icterus, conjunctival injection ENT exam: Present: normal oropharynx Neck exam: Present: normal inspection Respiratory exam: Present: normal lung sounds bilaterally. Absent: respiratory distress, wheezes, rales, rhonchi, stridor Cardiovascular Exam: Present: regular rate, normal rhythm, normal heart sounds. Absent: systolic murmur, diastolic murmur, rubs, gallop GI/Abdominal exam: Present: soft. Absent: distended, tenderness, guarding, rebound, rigid, mass Extremities exam: Present: normal inspection, normal capillary refill. Absent: pedal edema, calf tenderness Back exam: Present: normal inspection. Absent: CVA tenderness (R), CVA tenderness (L) Neurological exam: Present: alert, oriented X3, CN II-XII intact. Absent: motor sensory deficit Skin exam: Present: warm, dry, intact, normal color. Absent: rash Course Vital Signs 10/30/18 20:52 Temperature 97.9 F Pulse Rate 61 Respiratory 18 Rate Blood Pressure 144/83 O2 Sat by Pulse 95 Oximetry Medical Decision Making - Lab Data Result diagrams: 10/30/18 21:48 10/30/18 21:48 Lab Results 10/30/18 10/30/18 10/30/18 Range/Units 21:48 21:48 21:48 WBC 9.1 (3.8-10.6) k/uL RBC 5.01 (4.30-5.90) m/uL Hgb 15.1 (13.0-17.5) gm/dL Hct 45.4 (39.0-53.0) % MCV 90.6 (80.0-100.0) fL MCH 30.0 (25.0-35.0) pg MCHC 33.2 (31.0-37.0) g/dL RDW 13.7 (11.5-15.5) % Plt Count 210 (150-450) k/uL Neutrophils % 76 % Lymphocytes % 15 % Monocytes % 5 % Eosinophils % 3 % Basophils % 1 % Neutrophils # 6.9 (1.3-7.7) k/uL Lymphocytes # 1.3 (1.0-4.8) k/uL Monocytes # 0.4 (0-1.0) k/uL Eosinophils # 0.2 (0-0.7) k/uL Basophils # 0.1 (0-0.2) k/uL Sodium 140 (137-145) mmol/L Potassium 4.5 (3.5-5.1) mmol/L Chloride 104 (98-107) mmol/L Carbon Dioxide 26 (22-30) mmol/L Anion Gap 10 mmol/L BUN 18 (9-20) mg/dL Creatinine 1.17 (0.66-1.25) mg/dL Est GFR (CKD-EPI)AfAm 70 (>60 ml/min/1.73 sqM) Est GFR (CKD-EPI)NonAf 60 (>60 ml/min/1.73 sqM) Glucose 159 H (74-99) mg/dL Calcium 10.0 (8.4-10.2) mg/dL Total Bilirubin 0.5 (0.2-1.3) mg/dL AST 20 (17-59) U/L ALT 11 L (21-72) U/L Alkaline Phosphatase 130 H (38-126) U/L Troponin I <0.012 (0.000-0.034) ng/mL Total Protein 7.5 (6.3-8.2) g/dL Albumin 4.5 (3.5-5.0) g/dL Urine Color Urine Appearance (Clear) Urine pH (5.0-8.0) Ur Specific [place] (1.001-1.035) Urine Protein (Negative) Urine Glucose (UA) (Negative) Urine Ketones (Negative) Urine Blood (Negative) Urine Nitrite (Negative) Urine Bilirubin (Negative) Urine Urobilinogen (<2.0) mg/dL Ur Leukocyte Esterase (Negative) 10/30/18 Range/Units 22:42 WBC (3.8-10.6) k/uL RBC (4.30-5.90) m/uL Hgb (13.0-17.5) gm/dL Hct (39.0-53.0) % MCV (80.0-100.0) fL MCH (25.0-35.0) pg MCHC (31.0-37.0) g/dL RDW (11.5-15.5) % Plt Count (150-450) k/uL Neutrophils % % Lymphocytes % % Monocytes % % Eosinophils % % Basophils % % Neutrophils # (1.3-7.7) k/uL Lymphocytes # (1.0-4.8) k/uL Monocytes # (0-1.0) k/uL Eosinophils # (0-0.7) k/uL Basophils # (0-0.2) k/uL Sodium (137-145) mmol/L Potassium (3.5-5.1) mmol/L Chloride (98-107) mmol/L Carbon Dioxide (22-30) mmol/L Anion Gap mmol/L BUN (9-20) mg/dL Creatinine (0.66-1.25) mg/dL Est GFR (CKD-EPI)AfAm (>60 ml/min/1.73 sqM) Est GFR (CKD-EPI)NonAf (>60 ml/min/1.73 sqM) Glucose (74-99) mg/dL Calcium (8.4-10.2) mg/dL Total Bilirubin (0.2-1.3) mg/dL AST (17-59) U/L ALT (21-72) U/L Alkaline Phosphatase (38-126) U/L Troponin I (0.000-0.034) ng/mL Total Protein (6.3-8.2) g/dL Albumin (3.5-5.0) g/dL Urine Color Yellow Urine Appearance Clear (Clear) Urine pH 5.5 (5.0-8.0) Ur Specific [place] 1.022 (1.001-1.035) Urine Protein Trace H (Negative) Urine Glucose (UA) Negative (Negative) Urine Ketones Trace H (Negative) Urine Blood Negative (Negative) Urine Nitrite Negative (Negative) Urine Bilirubin Negative (Negative) Urine Urobilinogen 2.0 (<2.0) mg/dL Ur Leukocyte Esterase Negative (Negative) - EKG Data -: EKG Interpreted by Hi EKG shows normal: sinus rhythm, axis (Normal), intervals (Normal), ST-T waves (Normal) Rate: bradycardia (Rate 56 bpm) Interpretation: other (Old lateral infarct and old anterior infarct. The ECG appears unchanged versus June.) Disposition Clinical Impression: Parkinson disease, Fall, Low back strain Disposition: HOME SELF-CARE Condition: Good Instructions (If sedation given, give patient instructions): Fall Prevention for Older Adults (ED), Low Back Strain (ED) Is patient prescribed a controlled substance at d/c from ED?: No Referrals: Martín Julien MD [Primary Care Provider] - 1-2 days
[2018-10-30 22:01] LABS: Basophils # (A) 0.1 k/uL (0-0.2); Basophils % (A) 1 %; Eosinophils # (A) 0.2 k/uL (0-0.7); Eosinophils % (A) 3 %; HCT 45.4 % (39.0-53.0); HGB 15.1 gm/dL (13.0-17.5); Lymphocytes # (A) 1.3 k/uL (1.0-4.8); Lymphocytes % (A) 15 %; MCHC 33.2 g/dL (31.0-37.0); MCV 90.6 fL (80.0-100.0); Mean Platelet Volume 7.2; Monocytes # (A) 0.4 k/uL (0-1.0); Monocytes % (A) 5 %; Neutrophils # (A) 6.9 k/uL (1.3-7.7); Neutrophils % (A) 76 %; Platelet Count 210 k/uL (150-450); RBC 5.01 m/uL (4.30-5.90); RDW 13.7 % (11.5-15.5); WBC 9.1 k/uL (3.8-10.6)
[2018-10-30 22:11] LABS: Albumin 4.5 g/dL (3.5-5.0); Potassium 4.5 mmol/L (3.5-5.1); Total Bilirubin 0.5 mg/dL (0.2-1.3); Total Protein 7.5 g/dL (6.3-8.2)
--- NOTE | 2018-10-30 22:32 | XR ---
EXAMINATION: XR chest 1V portable DATE AND TIME: 10/30/2018 10:03 PM CLINICAL INDICATION: PHH; altered mental status TECHNIQUE: AP upright portable COMPARISON: 07/21/2018 FINDINGS: Cardiac pacemaker and EKG leads. Sternal sutures and mediastinal clips and moderately enlarged cardia c silhouette. The lungs are clear as seen. The pleural spaces are negative. The skeletal structures and soft tissues are negative for acute findings. IMPRESSION: No acute process.
[2018-10-30 22:53] LABS: Appearance,Urine Clear (Clear); Bilirubin,Urine Negative (Negative); Blood,Urine Negative (Negative); Color,Urine Yellow; Glucose,Urine (UA) Negative (Negative); Ketones,Urine Trace (Negative); Leukocyte Esterase,Urine Negative (Negative); Nitrite,Urine Negative (Negative); PH, Urine 5.5 (5.0-8.0); Protein,Urine Trace (Negative); Specific Gravity,Urine 1.022 (1.001-1.035)
--- NOTE | 2018-10-30 23:17 | XR ---
EXAM: XR Thoracic Spine, 2 Views CLINICAL HISTORY: Pain TECHNIQUE: Frontal and lateral views of the thoracic spine. COMPARISON: No relevant prior studies available. FINDINGS: Vertebrae: Unremarkable. No acute fracture. Normal alignment. Disc spaces: Mild degenerative disc disease. Soft tissues: Unremarkable. Tubes, lines and devices: Sternal wires. IMPRESSION: No acute findings.
--- NOTE | 2018-10-30 23:19 | XR ---
EXAM: XR Lumbar Spine, 2 or 3 Views CLINICAL HISTORY: Pain TECHNIQUE: Frontal and lateral views of the lumbar spine. COMPARISON: No relevant prior studies available. FINDINGS: Vertebrae: suspect osteopenia. No acute fracture. Normal alignment. Disc spaces: Mild degenerative disc disease. Soft tissues: Unremarkable. Vasculature: Calcified aorta. IMPRESSION: No acute findings.
[2018-10-30 23:42] VITALS: BP 137/83; PULSE 60; RESP 16
== END 2018-10-30 23:56 | disposition home or self-care (01) ==
LOC: EC 20:50
DX: G20 Parkinson's disease (principal); S39.012A Strain of muscle, fascia and tendon of lower back, initial encounter; I25.10 Atherosclerotic heart disease of native coronary artery without angina pectoris; I11.0 Hypertensive heart disease with heart failure; I50.9 Heart failure, unspecified; E11.9 Type 2 diabetes mellitus without complications; I25.2 Old myocardial infarction; I43 Cardiomyopathy in diseases classified elsewhere; I48.0 Paroxysmal atrial fibrillation; Z86.73 Personal history of transient ischemic attack (TIA), and cerebral infarction without residual deficits; Z95.1 Presence of aortocoronary bypass graft; Z95.5 Presence of coronary angioplasty implant and graft; Z95.810 Presence of automatic (implantable) cardiac defibrillator; Z87.891 Personal history of nicotine dependence; Z79.84 Long term (current) use of oral hypoglycemic drugs; Z79.890 Hormone replacement therapy; Z79.82 Long term (current) use of aspirin; Z79.899 Other long term (current) drug therapy; W19.XXXA Unspecified fall, initial encounter; Y92.009 Unspecified place in unspecified non-institutional (private) residence as the place of occurrence of the external cause
CPT/HCPCS: 36415; 71045; 72072; 72100; 80053; 81003; 84484; 85025; 93005; 99284

== ENCOUNTER 2019-06-07 18:41 | Inpatient (IN) | payer MEDICARE, OTHER ==
[2019-06-07] MEDS ORDERED: SODIUM CHLORIDE 0.9% 1,000 ML IV STA (18:46)
[2019-06-07 18:52] LABS: Glucose,Whole Blood 169 mg/dL (75-99)
--- NOTE | 2019-06-07 19:14 | CT ---
EXAMINATION TYPE: CT brain wo con for TPA DATE OF EXAM: 06/07/2019 COMPARISON: 07/21/2018 HISTORY: Stroke CT DLP: 1191.8 mGycm Automated exposure control for dose reduction was used. There is moderate diffuse atrophy. There is patchy hypodensity in the periventricular white matter. T here is old bilateral posterior frontal lobe cortical infarcts. There is no midline shift. There is n o sign of intracranial hemorrhage. There is old 1 cm lacunar infarct left internal capsule. The urbano rium is intact. There is mucosal thickening left maxillary sinus. IMPRESSION: Cerebral atrophy and chronic small vessel ischemia. Old bilateral frontal lobe infarct. Chronic left maxillary sinusitis. Brain overall not significantly different than last exam.
[2019-06-07] MEDS ORDERED: CLOPIDOGREL 75 MG TAB PO STA (19:15)
[2019-06-07] MEDS ORDERED: ASPIRIN 325 MG TAB PO STA (19:15)
--- NOTE | 2019-06-07 19:15 | ED ---
General Adult HPI - General Chief complaint: Neuro Symptoms/Deficit Stated complaint: CVA Symptoms Time Seen by Provider: 06/07/19 18:46 Source: patient, EMS, RN notes reviewed, old records reviewed Mode of arrival: EMS Limitations: no limitations - History of Present Illness Initial comments: 79-year-old male history of previous CVA, history of Parkinson's presenting with right-sided weakness. Patient was last known well between 1300- 1400. He is p resenting to the emergency department at 1845. Patient is not on any blood thinners. Unknown if he took his medications today for his Parkinson's. He denies pain complaints, denies headache. Denies pain complaints, no chest pain or dyspnea. No abdominal pain. No fever. - Related Data Home Medications Medication Instructions Recorded Confirmed Dutasteride [Avodart] 0.5 mg PO DAILY 11/19/14 10/30/18 Linagliptin [Tradjenta] 5 mg PO DAILY 11/19/14 10/30/18 Metoprolol Succinate [Toprol XL] 50 mg PO DAILY 11/19/14 10/30/18 Lisinopril [Zestril] 20 mg PO DAILY 09/13/15 10/30/18 Levothyroxine Sodium [Synthroid] 25 mcg PO DAILY 04/11/16 10/30/18 Furosemide [Lasix] 20 mg PO DAILY 09/15/17 10/30/18 Aspirin [[place] Aspirin EC] 81 mg PO DAILY 07/19/18 10/30/18 glipiZIDE [Glucotrol] 5 mg PO DAILY 07/19/18 10/30/18 Carbidopa-Levodopa ER 50-200Mg 1 tab PO TID 07/21/18 10/30/18 [Sinemet CR 50-200 mg] Allergies Allergy/AdvReac Type Severity Reaction Status Date / Time No Known Allergies Allergy Verified 06/07/19 18:45 Review of Systems ROS Statement: Those systems with pertinent positive or pertinent negative responses have been documented in the HPI. ROS Other: All systems not noted in ROS Statement are negative. 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 svt, paroxysmal afib, djd Last Myocardial Infarction Date:: 2004 History of Any Multi-Drug Resistant Organisms: None Reported Past Surgical History: Coronary Bypass/CABG, Heart Catheterization With Stent, Hernia Repair, Pacemaker Additional Past Surgical History / Comment(s): CABG-4 vessel in 2005, AICD 2004 and gen change 11/23/14, bilateral lens implants, lasik eye surgery, L hernia repair Past Anesthesia/Blood Transfusion Reactions: No Reported Reaction Date of Last Stent Placement:: 2007 Type of Cardiac Device: AICD Device Placement Date:: original 2004 with gen change 10/2014 Past Psychological History: No Psychological Hx Reported Smoking Status: Former smoker Past Alcohol Use History: None Reported Past Drug Use History: None Reported - Past Family History Father Family Medical History: No Reported History Additional Family Medical History / Comment(s): Father was healthy and at age 84 yrs. Mother Family Medical History: No Reported History Additional Family Medical History / Comment(s): Mother was healthy and at age 82 or 83. General Exam Limitations: no limitations General appearance: alert, in no apparent distress Head exam: Present: atraumatic, normocephalic Eye exam: Present: normal appearance, PERRL ENT exam: Present: normal exam Neck exam: Present: normal inspection. Absent: tenderness, meningismus Respiratory exam: Present: normal lung sounds bilaterally. Absent: respiratory distress, wheezes, rales Cardiovascular Exam: Present: regular rate, normal rhythm GI/Abdominal exam: Present: soft. 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 Absent: cyanosis, diaphoretic Course Vital Signs 06/07/19 06/07/19 06/07/19 18:42 18:45 19:00 Temperature 98 F 98 F Pulse Rate 89 89 89 Respiratory 20 20 20 Rate Blood Pressure 115/56 115/56 146/78 O2 Sat by Pulse 97 97 97 Oximetry 06/07/19 06/07/19 19:30 20:00 Temperature 98 F 98 F Pulse Rate 56 L 56 L Respiratory 20 20 Rate Blood Pressure 127/73 144/73 O2 Sat by Pulse 97 97 Oximetry - Reevaluation(s) Reevaluation #1: 06/07/19 [address] Ramos at the onset of presentation and again after CT imaging is performed. Recommends aspirin and Plavix. Patient not a TPA candidate. EKG Findings - EKG Comments: EKG Findings:: EKG: Sinus bradycardia with first-degree AV block, left axis deviation, no ST segment elevation, baseline artifact. Rate of 59, CT interval 224, QRS duration 108, QTC 451 Medical Decision Making - Medical Decision Making 79-year-old male presenting with concern for acute CVA. Patient is outside of TPA window. Both CT and CT angiography is performed, CT is negative for intracranial hemorrhage or mass effect. CT angiography shows concern for occlusion of the proximal left internal cerebral artery. I discussed the case with Dr. Ramos who is able to review the imaging, recommends aspirin and Plavix. Recommends MRI. I did discuss possibility of transfer versus admission to this hospital, felt that both are acceptable given the patient's comorbidities and dad no acute intervention will be performed at this time. Patient's son is at bedside he is agreeable with this. I discussed admitting this patient to the hospital with no neurology coverage until tomorrow. This means the patient will be under the care of the internal medicine physician Dr. Espinoza, and that the patient would not be seen by neurology until tomorrow. Family is agreeable with this. If there was any acute neurological changes the patient will be transferred at that time. Both the admitting physician, the patient and the p atient's son all agreeable with this. Patient is given aspirin and Plavix in the emergency department. He will be admitted for further stroke evaluation. Chest x-rays negative for acute cardiopulmonary disease. Patient has normal CBC with the exception of low platelets at 89. Creatinine is 1.34, normal electrolytes otherwise. Diagnosis: Acute CVA, Parkinson's disease. - Lab Data Result diagrams: 06/07/19 18:52 06/07/19 18:52 Lab Results 06/07/19 06/07/19 06/07/19 Range/Units 18:45 18:52 18:52 WBC 9.5 (3.8-10.6) k/uL RBC 4.57 (4.30-5.90) m/uL Hgb 14.1 (13.0-17.5) gm/dL Hct 41.0 (39.0-53.0) % MCV 89.7 (80.0-100.0) fL MCH 30.8 (25.0-35.0) pg MCHC 34.4 (31.0-37.0) g/dL RDW 13.1 (11.5-15.5) % Plt Count 89 L (150-450) k/uL Neutrophils % 73 % Lymphocytes % 16 % Monocytes % 6 % Eosinophils % 1 % Basophils % 1 % Neutrophils # 6.9 (1.3-7.7) k/uL Lymphocytes # 1.6 (1.0-4.8) k/uL Monocytes # 0.6 (0-1.0) k/uL Eosinophils # 0.1 (0-0.7) k/uL Basophils # 0.1 (0-0.2) k/uL Manual Slide Review Performed Sodium 136 L (137-145) mmol/L Potassium 4.6 (3.5-5.1) mmol/L Chloride 104 (98-107) mmol/L Carbon Dioxide 21 L (22-30) mmol/L Anion Gap 11 mmol/L BUN 27 H (9-20) mg/dL Creatinine 1.34 H (0.66-1.25) mg/dL Est GFR (CKD-EPI)AfAm 59 (>60 ml/min/1.73 sqM) Est GFR (CKD-EPI)NonAf 51 (>60 ml/min/1.73 sqM) Glucose 161 H (74-99) mg/dL POC Glucose (mg/dL) 169 H (75-99) mg/dL POC Glu Addictions Recovery Specialist ID [place] Calcium 9.3 (8.4-10.2) mg/dL Total Bilirubin 0.6 (0.2-1.3) mg/dL AST 24 (17-59) U/L ALT 7 (4-49) U/L Alkaline Phosphatase 96 (38-126) U/L Total Creatine Kinase (55-170) U/L CK-MB (CK-2) (0.0-2.4) ng/mL CK-MB (CK-2) Rel Index Troponin I (0.000-0.034) ng/mL Total Protein 6.8 (6.3-8.2) g/dL Albumin 4.1 (3.5-5.0) g/dL 06/07/19 Range/Units 18:52 WBC (3.8-10.6) k/uL RBC (4.30-5.90) m/uL Hgb (13.0-17.5) gm/dL Hct (39.0-53.0) % MCV (80.0-100.0) fL MCH (25.0-35.0) pg MCHC (31.0-37.0) g/dL RDW (11.5-15.5) % Plt Count (150-450) k/uL Neutrophils % % Lymphocytes % % Monocytes % % Eosinophils % % Basophils % % Neutrophils # (1.3-7.7) k/uL Lymphocytes # (1.0-4.8) k/uL Monocytes # (0-1.0) k/uL Eosinophils # (0-0.7) k/uL Basophils # (0-0.2) k/uL Manual Slide Review Sodium (137-145) mmol/L Potassium (3.5-5.1) mmol/L Chloride (98-107) mmol/L Carbon Dioxide (22-30) mmol/L Anion Gap mmol/L BUN (9-20) mg/dL Creatinine (0.66-1.25) mg/dL Est GFR (CKD-EPI)AfAm (>60 ml/min/1.73 sqM) Est GFR (CKD-EPI)NonAf (>60 ml/min/1.73 sqM) Glucose (74-99) mg/dL POC Glucose (mg/dL) (75-99) mg/dL POC Glu Addictions Recovery Specialist ID Calcium (8.4-10.2) mg/dL Total Bilirubin (0.2-1.3) mg/dL AST (17-59) U/L ALT (4-49) U/L Alkaline Phosphatase (38-126) U/L Total Creatine Kinase 55 (55-170) U/L CK-MB (CK-2) 0.9 (0.0-2.4) ng/mL CK-MB (CK-2) Rel Index 1.6 Troponin I <0.012 (0.000-0.034) ng/mL Total Protein (6.3-8.2) g/dL Albumin (3.5-5.0) g/dL Critical Care Time Critical Care Time: Yes Total Critical Care Time: 35 Disposition Clinical Impression: Cerebrovascular accident (CVA) Disposition: ADMITTED IP TO THIS HOSP Condition: Stable Is patient prescribed a controlled substance at d/c from ED?: No Referrals: Martín Julien MD [Primary Care Provider] - 1-2 days Decision to Admit Reason: Admit from EC Decision Date: 06/07/19 Decision Time: 20:57
[2019-06-07 19:34] LABS: Albumin 4.1 g/dL (3.5-5.0); Calcium 9.3 mg/dL (8.4-10.2); Potassium 4.6 mmol/L (3.5-5.1); Total Bilirubin 0.6 mg/dL (0.2-1.3); Total Protein 6.8 g/dL (6.3-8.2)
[2019-06-07 19:36] LABS: Creatine Kinase 55 U/L (55-170)
--- NOTE | 2019-06-07 19:39 | CT ---
EXAMINATION TYPE: CT angio head neck DATE OF EXAM: 06/07/2019 COMPARISON: None HISTORY: Neuro deficit, stroke suspected CT DLP: 778.3 mGycm Automated exposure control for dose reduction was used. CONTRAST: Performed with IV Contrast, patient injected with 65 mL of Isovue 370. Multiple axial sections were obtained from the aortic arch to the vertex of the brain with intravenou s contrast Isovue 65 mL. There are 3-D post processed images. There is normal branching pattern of the great vessels on the aortic arch. There is bilateral arteria l flow in the subclavian arteries. There is arterial flow in the common internal and external carotid arteries bilaterally. There is plaque formation at the carotid artery bifurcations. There is estimat ed 30% stenosis at the origin right internal carotid artery. There is estimated 15% stenosis origin l eft internal carotid artery. There is bilateral arterial flow in the vertebral arteries. Right verteb ral artery is larger than the left. The basilar artery fills mostly from the right side. There is art erial flow in the anterior middle and posterior cerebral arteries. The anterior cerebral arteries melita ear to fill entirely from the right side. There is no evidence of flow in the proximal left anterior cerebral artery. I see no intracranial mass effect. There is no sign of aneurysm or neovascularity. T here is normal contrast opacification of the venous sinuses. IMPRESSION: Mild plaque formation at the carotid artery bifurcations without evidence of hemodynamic stenosis. 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 No evidence of intracranial aneurysm.
[2019-06-07 19:49] LABS: Basophils # (A) 0.1 k/uL (0-0.2); Basophils % (A) 1 %; Creatine Kinase MB 0.9 ng/mL (0.0-2.4); Eosinophils # (A) 0.1 k/uL (0-0.7); Eosinophils % (A) 1 %; HGB 14.1 gm/dL (13.0-17.5); Lymphocytes # (A) 1.6 k/uL (1.0-4.8); Lymphocytes % (A) 16 %; MCH 30.8 pg (25.0-35.0); MCHC 34.4 g/dL (31.0-37.0); MCV 89.7 fL (80.0-100.0); Mean Platelet Volume 9.8; Monocytes # (A) 0.6 k/uL (0-1.0); Monocytes % (A) 6 %; Neutrophils # (A) 6.9 k/uL (1.3-7.7); Neutrophils % (A) 73 %; RBC 4.57 m/uL (4.30-5.90); RDW 13.1 % (11.5-15.5); Troponin I <0.012 ng/mL (0.000-0.034); WBC 9.5 k/uL (3.8-10.6)
--- NOTE | 2019-06-07 20:09 | XR ---
EXAMINATION TYPE: XR chest 2V DATE OF EXAM: 06/07/2019 COMPARISON: October 30, 2018 HISTORY: Altered mental status. Weakness. TECHNIQUE: FINDINGS: Heart is enlarged. There is no heart failure. There are sternal wires. There is a left axil haseeb pacemaker. There are chest leads. Bony thorax is intact. IMPRESSION: Cardiomegaly. No acute lung disease. No heart failure seen. Inspiration decreased compare d to old exam. Poor inspiration.
[2019-06-07 20:34] LABS: Platelet Count 89 k/uL (150-450)
[2019-06-07] MEDS: SODIUM CHLORIDE 0.9% 1,000 ML IV SCH (22:10)
[2019-06-07] MEDS: CARBIDOPA-LEVODOPA ER 50-200MG 1 EACH TABLET.ER PO SCH (22:58)
[2019-06-07] MEDS: ENOXAPARIN 40 MG/0.4 ML SYRINGE SQ SCH (22:58)
[2019-06-08 06:08] LABS: Glucose,Whole Blood 148 mg/dL (75-99)
[2019-06-08] MEDS: LEVOTHYROXINE 25 MCG TAB PO SCH (06:30)
[2019-06-08] MEDS: INSULIN ASPART (NovoLOG) 100 UNIT/ML VIAL SQ SCH ×4 (06:32→22:14)
[2019-06-08 08:06] LABS: Cholesterol 118 mg/dL (<200); HDL Cholesterol 33 mg/dL (40-60); LDL Cholesterol,Calculated 49 mg/dL (0-99); Triglycerides 180 mg/dL (<150)
[2019-06-08] MEDS: CLOPIDOGREL 75 MG TAB PO SCH (09:11)
[2019-06-08] MEDS: ENOXAPARIN 40 MG/0.4 ML SYRINGE SQ SCH (09:11)
[2019-06-08] MEDS: ASPIRIN 325 MG TAB PO SCH (09:11)
[2019-06-08] MEDS: METOPROLOL SUCCINATE (ER) 50 MG TAB.ER.24H PO SCH (09:11)
[2019-06-08] MEDS: FUROSEMIDE 20 MG TAB PO SCH (09:12)
[2019-06-08] MEDS: LISINOPRIL 20 MG TAB PO SCH (09:12)
[2019-06-08] MEDS: CARBIDOPA-LEVODOPA ER 50-200MG 1 EACH TABLET.ER PO SCH ×3 (09:12→20:22)
--- NOTE | 2019-06-08 11:29 | ECHOF ---
Referral Reason:Thrombus MEASUREMENTS -------- HEIGHT: 170.2 cm WEIGHT: 108.9 kg BP: 100/64 RVIDd: 3.7 cm (< 3.3) IVSd: 1.4 cm (0.6 - 1.1) LVIDd: 5.3 cm (3.9 - 5.3) LVPWd: 1.5 cm (0.6 - 1.1) IVSs: 1.8 cm LVIDs: 3.2 cm LVPWs: 1.4 cm LA Diam: 3.4 cm (2.7 - 3.8) LAESV Index (A-L): 32.10 ml/m Ao Diam: 4.1 cm (2.0 - 3.7) AV Cusp: 2.1 cm (1.5 - 2.6) MV EXCURSION: 18.395 mm (> 18.000) MV EF SLOPE: 46 mm/s (70 - 150) EPSS: 1.6 cm MV E Jerry: 0.49 m/s MV DecT: 265 ms MV A Jerry: 0.63 m/s MV E/A Ratio: 0.78 RAP: 5.00 mmHg RVSP: 32.48 mmHg FINDINGS -------- Paced rhythm. This was a technically difficult study with suboptimal apical views. The left ventricular size is normal. There is moderate concentric left ventricular hypertrophy. O verall left ventricular systolic function is normal with, an EF between 60 - 65 %. The right ventricle is mildly enlarged. LA is midly dilated 29-33ml/m2. The right atrium is normal in size. 4 ml of Lumason was utilized for enhancement of images. Aortic valve is trileaflet and is mildly thickened. Mild mitral annular calcification present. There is trace to mild mitral regurgitation. Mild tricuspid regurgitation present. Right ventricular systolic pressure is normal at < 35 mmHg. Trace/mild (physiologic) pulmonic regurgitation. The aortic root is dilated measuring 4.1cm. IVC Not well visulized. There is no pericardial effusion. CONCLUSIONS -------- 1. Paced rhythm. 2. This was a technically difficult study with suboptimal apical views. 3. The left ventricular size is normal. 4. There is moderate concentric left ventricular hypertrophy. 5. Overall left ventricular systolic function is normal with, an EF between 60 - 65 %. 6. The right ventricle is mildly enlarged. 7. LA is midly dilated 29-33ml/m2. 8. The right atrium is normal in size. 9. 4 ml of Lumason was utilized for enhancement of images. 10. Aortic valve is trileaflet and is mildly thickened. 11. Mild mitral annular calcification present. 12. There is trace to mild mitral regurgitation. 13. Mild tricuspid regurgitation present. 14. Right ventricular systolic pressure is normal at < 35 mmHg. 15. Trace/mild (physiologic) pulmonic regurgitation. 16. The aortic root is dilated measuring 4.1cm. 17. IVC Not well visulized. 18. There is no pericardial effusion. MANAGER EPIC: Amparo Villeda RDCS
[2019-06-08 11:54] LABS: Glucose,Whole Blood 218 mg/dL (75-99)
[2019-06-08] MEDS: SODIUM CHLORIDE 0.9% 1,000 ML IV SCH (12:47)
[2019-06-08 13:41] VITALS: BMI 37.6
--- NOTE | 2019-06-08 13:53 | P.CNNES ---
History of Present Illness Consult date: 06/08/19 Requesting physician: Brian Han Reason for Consult: CVA History of Present Illness: Patient is a 79-year-old male with history of previous CVA, Parkinson's disease, presented with right-sided weakness. Patient lives in an assisted living, does have home health aides available. Patient often requires help to get up, and can walk short distances by himself or with a walker, but with one-person around due to fall risks. His last known well was between 1-2 pm. He arrived to the ER at 6:45 PM. Patient was considered not a candidate for TPA because he arrived more than 4.5 hours after onset of stroke symptoms. Case was discussed with neuro intervention Dr. Ramos by ED staff, who recommended no TPA, and recommended aspirin and Plavix. Patient was loaded with Plavix 150 mg and aspirin 325 mg yesterday. Patient's son was present at this time. He mentions that patient's right arm and leg is flaccid. No worsening of his baseline speech functioning. Patient's son states that he does not talk much, but is not changed from baseline. He does have some word finding problem. Patient has history of diabetes for 4-5 years, hypertension. Nontobacco user. Patient has AICD placement. On review of records, it appears patient has history of TIA on 06/07/2015 when he suffered from generalized weakness, slurred speech. Patient was continued on aspirin regimen at that time. Patient was again admitted 08/19/2015 with possible CVA versus TIA. It was recommended to change aspirin to Plavix 75 mg daily. He should also has history of strokes in 2011 in 2012. Patient apparently was not [facility] any [facility]platelet [facility], prior to current admission, as per the outside records. Computed tomography scan of head showed cerebral atrophy and chronic small vessel ischemia. Old bilateral frontal lobe infarct. Chronic left maxillary sinusitis. Brain overall not significantly different than last exam. CTA of head and neck showed mild plaque formation the carotid artery bifurcations without evidence of hemodynamic significant stenosis. Occlusion of the proximal left anterior cerebral artery with apparent filling through the anterior communicating artery distally. No evidence of intracranial aneurysm. 2-D echo showed paced rhythm. EF is 60-65%. Moderate concentric LVH. Right ventricle is mildly enlarged. Left atrium is mildly dilated. EKG shows sinus bradycardia with first-degree AV block. Left axis deviation. Chest x-ray showed cardiomegaly. No acute lung disease. No heart failure seen. Blood tests shows sodium 136 potassium 4.6 BUN 27 creatinine 1.34. Liver functions normal. Total cholesterol 218, LDL 49, HDL 33 and triglycerides 180. Patient's last hemoglobin A1c 8.2 on 09/14/2015. Homocystine 11.37. Review of Systems Patient has incontinence of urine and sometimes with bowels also. He is unsteady gait. Uses scooter he does have mild slurred speech, but his baseline. Sometimes she would lose words while talking. Frequent falls, bruises and scabs because of falls. Past Medical History Past Medical History: Coronary Artery Disease (CAD), Chest Pain / Angina, Heart Failure, CVA/TIA, Diabetes Mellitus, Hearing Disorder / Deafness, Hyperlipidemia, Hypertension, Myocardial Infarction ([place]), Prostate Disorder Additional Past Medical History / Comment(s): CVA 05/2011 and 11/2012,5-20-16 affected rt side, TIA's, parkinsons, ischemic cardiomyopathy with L ventricular ejection fx < 30% ( has AICD), NIDDM type II, BPH, DJD, gait dysfunction/falls, nephrolithiasis, hemorrhiods.falls svt, paroxysmal afib, djd Last Myocardial Infarction Date:: 2004 History of Any Multi-Drug Resistant Organisms: None Reported Past Surgical History: Coronary Bypass/CABG, Heart Catheterization With Stent, Hernia Repair, Pacemaker Additional Past Surgical History / Comment(s): CABG-4 vessel in 2005, AICD 2004 and gen change 11/23/14, bilateral lens implants, lasik eye surgery, L hernia repair Past Anesthesia/Blood Transfusion Reactions: No Reported Reaction Date of Last Stent Placement:: 2007 [facility] of Cardiac Device: [facility] Device Placement Date:: original 2004 with gen change 10/2014 Past Psychological History: No Psychological Hx Reported Additional Psychological History / Comment(s): He has a walker, and a scooter lives at [facility] no longer drives Smoking Status: Never smoker Past Alcohol Use History: None Reported Additional Past Alcohol Use History / Comment(s): Pt started smoking in 1989 and quit in 1998. Past Drug Use History: None Reported - Past Family History Father Family Medical History: No Reported History Additional Family Medical History / Comment(s): Father was healthy and at age 84 yrs. Mother Family Medical History: No Reported History Additional Family Medical History / Comment(s): Mother was healthy and at age 82 or 83. Medications and Allergies Home Medications Medication Instructions Recorded Confirmed Type Linagliptin [Tradjenta] 5 mg PO DAILY@1000 11/19/14 06/08/19 History Metoprolol Succinate [Toprol XL] 50 mg PO DAILY@99911/19/14 06/08/19 History Lisinopril [Zestril] 20 mg PO DAILY@99909/13/15 06/08/19 History Levothyroxine Sodium [Synthroid] 25 mcg PO DAILY@99904/11/16 06/08/19 History glipiZIDE [Glucotrol] 5 mg PO DAILY@99907/19/18 06/08/19 History Carbidopa-Levodopa ER 50-200Mg 1 tab PO TID@1000,1400,199907/21/18 06/08/19 History [Sinemet CR 50-200 mg] Amiodarone [Cordarone] 100 mg PO DAILY@99906/08/19 06/08/19 History Atorvastatin [Lipitor] 40 mg PO DAILY@99906/08/19 06/08/19 History Furosemide [Lasix] 40 mg PO DAILY PRN 06/08/19 06/08/19 History Mupirocin [Mupirocin 2%] 1 applic TOPICAL BID@999,199906/08/19 06/08/19 History sitaGLIPtin [Januvia] 100 mg PO DAILY@99906/08/19 06/08/19 History Allergies Allergy/AdvReac Type Severity Reaction Status Date / Time No Known Allergies Allergy Verified 06/08/19 09:21 Physical Examination - Vital Signs Vital Signs: Vital Signs Temp Pulse Pulse Resp BP BP Pulse Ox 06/08/19 09:00 98.4 F 57 L 16 114/59 96 06/08/19 04:00 98.2 F 57 L 16 100/64 95 06/07/19 23:00 97.3 F L 72 16 121/58 96 06/07/19 22:11 98 F 55 L 20 145/81 97 06/07/19 21:00 98 F 55 L 20 145/81 97 06/07/19 20:00 98 F 56 L 20 144/73 97 06/07/19 19:30 98 F 56 L 20 127/73 97 06/07/19 19:00 98 F 89 20 146/78 97 06/07/19 18:45 98 F 89 20 115/56 97 06/07/19 18:42 89 20 115/56 97 Intake and Output 06/07/19 06/08/19 06/08/19 22:59 06:59 14:59 Intake Total 120 Balance 120 Intake: Oral 120 Other: Voiding Method Diaper Diaper # Voids 1 Weight 107.955 kg 109 kg On examination patient is an elderly male, in no distress. He is alert and awake. He knows his full name and that he is 80 years of age. States it is the month of July and the year is . He states that he is in [facility] and in [facility]. Patient has very slow mentation, prolonged latency time to answer questions, and very hard of hearing. He is using hearing aids. Speech is clear with no obvious aphasia. Mild dysarthria noted. On cranial examination his right pupil is 2 mm, left 3 mm, not clearly reactive on either sides. Extraocular muscles are intact. Visual monge are full on confrontation. No definitive neglect. He has right facial weakness, mild degree. Tongue protrudes the midline. On muscle strength testing, patient has significant right hemiparesis. His strength appears normal in the left arm and leg, except left ankle dorsiflexion which is weak probably from peripheral neuropathy. 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 In the right lower limb, his hip flexion is 0, ankle dorsiflexion 0. Knee extension 0. Patient has brisk reflexes 2+ in the arms and knees, absent ankles and has bilateral Babinski. Sensory touch is equal. Could not assess f or neglect. Cannot assess for cerebellar functions. Tone is increased in bilateral arms with severe bradykinesia. No tremors at rest was noted. No obvious carotid bruit, S1 and S2 audible. He has peripheral edema. He has hammertoes. Results - Laboratory Findings CBC and BMP: 06/07/19 18:52 06/07/19 18:52 Abnormal Lab Findings: Abnormal Labs 06/07/19 06/07/19 06/07/19 18:45 18:52 18:52 Plt Count 89 L Sodium 136 L Carbon Dioxide 21 L BUN 27 H Creatinine 1.34 H Glucose 161 H POC Glucose (mg/dL) 169 H Triglycerides HDL Cholesterol 06/08/19 06/08/19 06/08/19 06:06 06:50 11:51 Plt Count Sodium Carbon Dioxide BUN Creatinine Glucose POC Glucose (mg/dL) 148 H 218 H Triglycerides 180 H HDL Cholesterol 33 L Assessment and Plan Assessment: * 79-year-old male admitted with an acute stroke with right hemiparesis, mainly involving the right lower greater than right upper extremity. CTA of head showed occlusion of the left MAURY. Possibly due to atherothrombosis. Patient currently was not on any antiplatelet medication, as per [facility] report. * History of multiple strokes and TIAs in the past. * Vascular dementia * Parkinson's disease on Sinemet * Diabetes, not well controlled * Hyperlipidemia * Hypertension * Frequent falls * AICD placement. Plan: * Agree with starting aspirin 325 mg and Plavix 75 mg for secondary stroke prevention. * Patient cannot have MRI of the brain due to presence of AICD. * Telemetry monitoring so far showing sinus bradycardia, with HR 50-60 and pacemaker kicking if HR <40. No Atrial Fibrillation. * Check hemoglobin A1c. Optimize control of diabetes to target A1c <7.0. * Patient's lipids are well controlled, with LDL 49. Continue statins. * PT OT, speech therapy. * Check B12, folate, TSH. * Start Aricept 5 mg daily for dementia.
--- NOTE | 2019-06-08 13:56 | P.HPIM ---
History of Present Illness H&P Date: 06/08/19 Chief Complaint: Right-sided weakness History of presenting complaint: This is a very pleasant 79-year-old patient of Dr. Martín Julien. Chronic stable medical conditions include Parkinson's disease, CHF, atrial fibrillation, diabetes, hyperlipidemia, hypertension, coronary artery disease with stent and bypass, cognitive impairment, chronic gait dysfunction uses a scooter,. Patient presented to ER with the right-sided weakness. Unclear to the ER if patient to take his medications. ER physician did inform me that the family was informed about neurology service. Not available. Patient's family is fine with that and did not want the patient to be transferred anywhere. Neurology service was to be are available this morning. Patient sitting upon a chair. Able to answer simple questions. Has right-sided weakness. Did use breakfast this morning. Denies any headache or double vision. No nausea vomiting. Difficult to get history from the patient. Review of systems: GEN.: Tired EYES: None HEENT: None NECK: None RESPIRATORY: None CARDIOVASCULAR: None GASTROINTESTINAL: None GENITOURINARY: None MUSCULOSKELETAL: Some joint pains LYMPHATICS: None HEMATOLOGICAL: None PSYCHIATRY: Forgetful NEUROLOGICAL: [Weakness on the right side. Past medical history to include: Parkinson's disease, AICD, CHF-EF less than 30%, AICD, paroxysmal atrial fibrillation, diabetes mellitus type 2, hyperlipidemia, hypertension, coronary artery disease with history of stent and bypass, cognitive impairment, BPH, kidney stones, gait dysfunction uses a walker the scooter. Social history: Lives at the [facility]. Does have a walker the scooter. This smoked from 1997 through 1998. No alcohol. Physical examination: VITAL SIGNS: 98, 89, 20, 115/56, 97% GENERAL: BMI 37.6, sitting up in a chair, awake, but tired. EYES: Pupils equal. Conjunctiva normal. HEENT: External appearance of nose and ears normal, oral cavity grossly normal. NECK: JVD unable to assess; masses not palpable. HEART: First and second heart sounds are normal; no edema. LUNGS:[ Respiratory rate normal; slightly decreased breath sounds. ABDOMEN: Soft, nontender, liver spleen not palpable, no masses palpable. PSYCH: Patient is able to answer simple questionsl. NEUROLOGICAL: Speech is slow, power in the right side 2/5. Bradykinesia. LYMPHATICS: No lymph nodes palpable in the axilla and neck INVESTIGATIONS, reviewed in the clinical context: White count 9.5, hemoglobin 14.1, platelets 89, potassium 4.6, bun 27, creatinine 1.34, LDL 49 Computed tomography scan brain-cerebral atrophy and chronic small vessel ischemia. Old bilateral frontal lobe infarct. CT angiogram head and neck-occlusion of proximal left anterior cerebral artery with filling to the anterior communicating artery. Distally. Chest x-ray film personally reviewed by me-cardiomegaly, poor inspiration EKG tracing personally reviewed by me-normal sinus rhythm Assessment: -Acute stroke possibly in the left MCA territory with right-sided weakness -Idiopathic Parkinson's disease -AICD -Chronic congestive heart failure from systolic dysfunction EF less than 30% -Paroxysmal atrial fibrillation currently in sinus rhythm -Diabetes mellitus type 2 -Hyperlipidemia -Essential hypertension -Coronary artery disease with a history of stent and bypass -Moderate cognitive impairment from underlying Parkinson's disease -BPH -Bilateral kidney stones -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 -Hypothyroid Plan: Patient's been put on aspirin. Continue with Lipitor. Other home medications are to continue. Accu-Cheks are to be followed. Neuro checks are in place. PTOT to be consulted. Including repeat. Neurology also consulted. Overall prognosis guarded. Past Medical History Past Medical History: Coronary Artery Disease (CAD), Chest Pain / Angina, Heart Failure, CVA/TIA, Diabetes Mellitus, Hearing Disorder / Deafness, Hyperlipidemia, Hypertension, Myocardial Infarction ([place]), Prostate Disorder Additional Past Medical History / Comment(s): CVA 05/2011 and 11/2012,5-20-16 affected rt side, TIA's, parkinsons, ischemic cardiomyopathy with L ventricular ejection fx < 30% ( has AICD), NIDDM type II, BPH, DJD, gait dysfunction/falls, nephrolithiasis, hemorrhiods.falls svt, paroxysmal afib, djd Last Myocardial Infarction Date:: 2004 History of Any Multi-Drug Resistant Organisms: None Reported Past Surgical History: Coronary Bypass/CABG, Heart Catheterization With Stent, Hernia Repair, Pacemaker Additional Past Surgical History / Comment(s): CABG-4 vessel in 2005, AICD 2004 and gen change 11/23/14, bilateral lens implants, lasik eye surgery, L hernia repair Past Anesthesia/Blood Transfusion Reactions: No Reported Reaction Date of Last Stent Placement:: 2007 Type of Cardiac Device: AICD Device Placement Date:: original 2004 with gen change 10/2014 Past Psychological History: No Psychological Hx Reported Additional Psychological History / Comment(s): He has a walker, and a scooter lives at [place] no longer drives Smoking Status: Never smoker Past Alcohol Use History: None Reported Additional Past Alcohol Use History / Comment(s): Pt started smoking in 1989 and quit in 1998. Past Drug Use History: None Reported - Past Family History Father Family Medical History: No Reported History Additional Family Medical History / Comment(s): Father was healthy and at age 84 yrs. Mother Family Medical History: No Reported History Additional Family Medical History / Comment(s): Mother was healthy and at age 82 or 83. Medications and Allergies Home Medications Medication Instructions Recorded Confirmed Type Linagliptin [Tradjenta] 5 mg PO DAILY@99911/19/14 06/08/19 History Metoprolol Succinate [Toprol XL] 50 mg PO DAILY@99911/19/14 06/08/19 History Lisinopril [Zestril] 20 mg PO DAILY@99909/13/15 06/08/19 History Levothyroxine Sodium [Synthroid] 25 mcg PO DAILY@99904/11/16 06/08/19 History glipiZIDE [Glucotrol] 5 mg PO DAILY@99907/19/18 06/08/19 History Carbidopa-Levodopa ER 50-200Mg 1 tab PO TID@1000,1400,199907/21/18 06/08/19 History [Sinemet CR 50-200 mg] Amiodarone [Cordarone] 100 mg PO DAILY@99906/08/19 06/08/19 History Atorvastatin [Lipitor] 40 mg PO DAILY@99906/08/19 06/08/19 History Furosemide [Lasix] 40 mg PO DAILY PRN 06/08/19 06/08/19 History Mupirocin [Mupirocin 2%] 1 applic TOPICAL BID@1000,199906/08/19 06/08/19 History sitaGLIPtin [Januvia] 100 mg PO DAILY@1000 06/08/19 06/08/19 History Allergies Allergy/AdvReac Type Severity Reaction Status Date / Time No Known Allergies Allergy Verified 06/08/19 09:21 Physical Exam Vitals: Vital Signs Temp Pulse Pulse Resp BP BP Pulse Ox 06/08/19 09:00 98.4 F 57 L 16 114/59 96 06/08/19 04:00 98.2 F 57 L 16 100/64 95 06/07/19 23:00 97.3 F L 72 16 121/58 96 06/07/19 22:11 98 F 55 L 20 145/81 97 06/07/19 21:00 98 F 55 L 20 145/81 97 06/07/19 20:00 98 F 56 L 20 144/73 97 06/07/19 19:30 98 F 56 L 20 127/73 97 06/07/19 19:00 98 F 89 20 146/78 97 06/07/19 18:45 98 F 89 20 115/56 97 06/07/19 18:42 89 20 115/56 97 Intake and Output 06/07/19 06/08/19 06/08/19 22:59 06:59 14:59 Intake Total 120 Balance 120 Intake: Oral 120 Other: Voiding Method Diaper Diaper # Voids 1 Weight 107.955 kg 109 kg Results CBC & Chem 7: 06/07/19 18:52 06/07/19 18:52 Labs: Abnormal Lab Results - Last 24 Hours (Table) 06/07/19 06/07/19 06/07/19 Range/Units 18:45 18:52 18:52 Plt Count 89 L (150-450) k/uL Sodium 136 L (137-145) mmol/L Carbon Dioxide 21 L (22-30) mmol/L BUN 27 H (9-20) mg/dL Creatinine 1.34 H (0.66-1.25) mg/dL Glucose 161 H (74-99) mg/dL POC Glucose (mg/dL) 169 H (75-99) mg/dL Triglycerides (<150) mg/dL HDL Cholesterol (40-60) mg/dL 06/08/19 06/08/19 Range/Units 06:06 06:50 Plt Count (150-450) k/uL Sodium (137-145) mmol/L Carbon Dioxide (22-30) mmol/L BUN (9-20) mg/dL Creatinine (0.66-1.25) mg/dL Glucose (74-99) mg/dL POC Glucose (mg/dL) 148 H (75-99) mg/dL Triglycerides 180 H (<150) mg/dL HDL Cholesterol 33 L (40-60) mg/dL Thrombosis Risk Factor Assmnt - Choose All That Apply Each Risk Factor Represents 2 Points: Age 61-74 years Thrombosis Risk Factor Assessment Total Risk Factor Score: 2 Thrombosis Risk Factor Assessment Level: Low Risk
[2019-06-08 17:17] LABS: Glucose,Whole Blood 232 mg/dL (75-99)
[2019-06-08 20:04] LABS: Folate, Serum 8.2 ng/mL
[2019-06-08 21:05] LABS: Glucose,Whole Blood 176 mg/dL (75-99)
[2019-06-08 21:44] LABS: Hemoglobin A1C 8.6 % (4.0-6.0)
[2019-06-09] MEDS: LEVOTHYROXINE 25 MCG TAB PO SCH (05:52)
[2019-06-09 06:38] LABS: Glucose,Whole Blood 144 mg/dL (75-99)
[2019-06-09] MEDS: INSULIN ASPART (NovoLOG) 100 UNIT/ML VIAL SQ SCH ×4 (06:52→21:36)
[2019-06-09] MEDS: FUROSEMIDE 20 MG TAB PO SCH (09:55)
[2019-06-09] MEDS: ASPIRIN 325 MG TAB PO SCH (09:55)
[2019-06-09] MEDS: METOPROLOL SUCCINATE (ER) 50 MG TAB.ER.24H PO SCH (09:56)
[2019-06-09] MEDS: ENOXAPARIN 40 MG/0.4 ML SYRINGE SQ SCH (09:56)
[2019-06-09] MEDS: CLOPIDOGREL 75 MG TAB PO SCH (09:56)
[2019-06-09] MEDS: LISINOPRIL 20 MG TAB PO SCH (09:56)
[2019-06-09] MEDS: CARBIDOPA-LEVODOPA ER 50-200MG 1 EACH TABLET.ER PO SCH ×3 (09:56→21:59)
[2019-06-09 11:52] LABS: Glucose,Whole Blood 166 mg/dL (75-99)
--- NOTE | 2019-06-09 12:04 | P.PN ---
Subjective Progress Note Date: 06/09/19 Patient essentially unchanged. Still speech difficulty, right hemiparesis. Offers no complaints. Objective - Vital Signs Vital signs: Vital Signs Temp 98 F 06/09/19 08:15 Pulse 60 06/09/19 08:15 Resp 16 06/09/19 08:15 BP 145/69 06/09/19 08:15 Pulse Ox 98 06/09/19 08:15 Intake & Output 06/08/19 06/09/19 06/09/19 18:59 06:59 18:59 Intake Total 420 645 280 Balance 420 645 280 Weight 109 kg 105.5 kg Intake: Intake, IV Titration 525 Amount Sodium Chloride 0.9% 1, 525 000 ml @ 75 mls/hr IV . [id number] [facility] Rx#:[id number] Oral 420 120 280 Other: Voiding Method Diaper Diaper # Voids 2 1 1 # Bowel Movements 0 0 - Exam Patient is sitting in a recliner. He has right hemiparesis. Patient has limited speech. Patient is very hard of hearing. Patient is some aphasia. - Labs CBC & Chem 7: 06/07/19 18:52 06/07/19 18:52 Labs: Abnormal Lab Results - Last 24 Hours (Table) 06/07/19 06/08/19 06/08/19 Range/Units 18:52 17:12 21:03 POC Glucose (mg/dL) 232 H 176 H (75-99) mg/dL Hemoglobin A1c 8.6 H (4.0-6.0) % 06/09/19 06/09/19 Range/Units 06:37 11:50 POC Glucose (mg/dL) 144 H 166 H (75-99) mg/dL Hemoglobin A1c (4.0-6.0) % Assessment and Plan Assessment: * 79-year-old male admitted with an acute stroke with right hemiparesis, mainly involving the right lower greater than right upper extremity. CTA of head showed occlusion of the left MAURY. Possibly due to atherothrombosis. Patient currently was not on any antiplatelet medication, as per shelter report. * History of multiple strokes and TIAs in the past. * Vascular dementia * Parkinson's disease on Sinemet * Diabetes, not well controlled * Hyperlipidemia * Hypertension * Frequent falls * AICD placement. Plan: * Continue aspirin 325 mg and Plavix 75 mg for secondary stroke prevention. * Patient cannot have MRI of the brain due to presence of AICD. * Telemetry monitoring so far showing sinus bradycardia, with HR 50-60 and pacemaker kicking if HR <40. No Atrial Fibrillation. * A1c 8.6. Optimize control of diabetes to target A1c <7.0. * Patient's lipids are well controlled, with LDL 49, total cholesterol 118, HDL 33 and triglycerides 180. Continue statins. * PT OT, speech therapy. * B12 228, continue B12 replacement, folate 8.2, TSH 3.74. * Start Aricept 5 mg daily for dementia, if no medical contraindications.
[2019-06-09 17:17] LABS: Glucose,Whole Blood 214 mg/dL (75-99)
[2019-06-09 20:28] LABS: Glucose,Whole Blood 188 mg/dL (75-99)
--- NOTE | 2019-06-09 23:24 | P.PN ---
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 Chronic stable medical conditions include Parkinson's disease, CHF, atrial fibrillation, diabetes, hyperlipidemia, hypertension, coronary artery disease with stent and bypass, cognitive impairment, chronic gait dysfunction uses a scooter,. Patient presented to ER with the right-sided weakness. Unclear to the ER if patient to take his medications. ER physician did inform me that the family was informed about neurology service. Not available. Patient's family is fine with that and did not want the patient to be transferred anywhere. Neurology service was to be are available this morning. Patient sitting upon a chair. Able to answer simple questions. Has right-sided weakness. Did use breakfast this morning. Denies any headache or double vision. No nausea vomiting. Difficult to get history from the patient. Admitted with stroke causing right-sided weakness. Today-sitting up in a chair. Answering only occasional question. Right-sided weakness persist. Patient's 2 sons at the bedside. Patient has been eating reasonable amount Review of systems difficult to obtain Active Medications Aspirin (Aspirin) 325 mg PO DAILY [facility] Last Admin: 06/09/19 09:55 Dose: 325 mg Documented by: Carbidopa/Levodopa (Sinemet Er 50-200) 1 each PO TID [facility] Last Admin: 06/09/19 21:59 Dose: 1 each Documented by: Clopidogrel Bisulfate (Plavix) 75 mg PO DAILY [facility] Last Admin: 06/09/19 09:56 Dose: 75 mg Documented by: Enoxaparin Sodium (Lovenox) 40 mg SQ DAILY [facility] Last Admin: 06/09/19 09:56 Dose: 40 mg Documented by: Furosemide (Lasix) 20 mg PO DAILY [facility] Last Admin: 06/09/19 09:55 Dose: 20 mg Documented by: Insulin Aspart (Novolog) 0 unit SQ [facility]; Protocol Last Admin: 06/09/19 21:36 Dose: 3 unit Documented by: Levothyroxine Sodium (Synthroid) 25 mcg PO DAILY@0630 [facility] Last Admin: 06/09/19 05:52 Dose: 25 mcg Documented by: Lisinopril (Zestril) 20 mg PO DAILY [facility] Last Admin: 06/09/19 09:56 Dose: 20 mg Documented by: Metoprolol Succinate (Toprol Xl) 50 mg PO DAILY [facility] Last Admin: 06/09/19 09:56 Dose: 50 mg Documented by: Physical examination: VITAL SIGNS: 98, 60, 16, blood pressure 140-69, 98% on room air GENERAL: BMI 37.6, sitting up in a chair, awake, but tired. EYES: Pupils equal. Conjunctiva normal. HEENT: External appearance of nose and ears normal, oral cavity grossly normal. NECK: JVD unable to assess; masses not palpable. HEART: First and second heart sounds are normal; no edema. LUNGS:[ Respiratory rate normal; slightly decreased breath sounds. ABDOMEN: Soft, nontender, liver spleen not palpable, no masses palpable. PSYCH: Patient is able to answer occasional questionsl. NEUROLOGICAL: Speech is slow, power in the right side 2/5. Bradykinesia. INVESTIGATIONS, reviewed in the clinical context: White count 9.5, hemoglobin 14.1, platelets 89, potassium 4.6, bun 27, creatinine 1.34, LDL 49 Computed tomography scan brain-cerebral atrophy and chronic small vessel ischemia. Old bilateral frontal lobe infarct. CT angiogram head and neck-occlusion of proximal left anterior cerebral artery with filling to the anterior communicating artery. Distally. Chest x-ray film personally reviewed by me-cardiomegaly, poor inspiration EKG tracing personally reviewed by me-normal sinus rhythm Assessment: -Acute stroke possibly in the left MCA territory with right-sided weakness-slow to respond -Acute dysarthria from stroke -Idiopathic Parkinson's disease -AICD -Chronic congestive heart failure from systolic dysfunction EF less than 30% -Paroxysmal atrial fibrillation currently in sinus rhythm -Diabetes mellitus type 2 -Hyperlipidemia -Essential hypertension -Coronary artery disease with a history of stent and bypass -Moderate cognitive impairment from underlying Parkinson's disease -BPH -Bilateral kidney stones -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 -Hypothyroid -Chronic occlusion of anterior cerebral artery No code Plan: Continue current medication treatment plan. PTOT been the case. Prognosis is guarded. Advanced care planning: This was done with the patient's 2 sons at the bedside. Including the one who is a d POA Overall condition was discussed. They do understand the prognosis is guarded. Patient's score status is DO NOT RESUSCITATE. If patient is due to to radiate they've agreed to proceed with comfort care or hospice. The meantime attempted therapy will be done. They do understand [id number] guarded. Several different options were discussed. Also was discussed of the limited expectation about comfortable current situation. Several questions were answered. About 30 minutes was spent for this.
[2019-06-10] MEDS: LEVOTHYROXINE 25 MCG TAB PO SCH (05:32)
[2019-06-10 06:10] LABS: Glucose,Whole Blood 153 mg/dL (75-99)
[2019-06-10] MEDS: INSULIN ASPART (NovoLOG) 100 UNIT/ML VIAL SQ SCH ×2 (06:28→12:26)
[2019-06-10 09:19] VITALS: TEMP 97.8
[2019-06-10] MEDS: ASPIRIN 325 MG TAB PO SCH (09:21)
[2019-06-10] MEDS: METOPROLOL SUCCINATE (ER) 50 MG TAB.ER.24H PO SCH (09:21)
[2019-06-10] MEDS: ENOXAPARIN 40 MG/0.4 ML SYRINGE SQ SCH (09:21)
[2019-06-10] MEDS: CARBIDOPA-LEVODOPA ER 50-200MG 1 EACH TABLET.ER PO SCH (09:21)
[2019-06-10] MEDS: FUROSEMIDE 20 MG TAB PO SCH (09:21)
[2019-06-10] MEDS: CLOPIDOGREL 75 MG TAB PO SCH (09:21)
[2019-06-10] MEDS: LISINOPRIL 20 MG TAB PO SCH (09:21)
[2019-06-10 11:22] VITALS: BP 102/61; PULSE 57; RESP 18
[2019-06-10 11:30] LABS: Glucose,Whole Blood 230 mg/dL (75-99)
--- NOTE | 2019-06-10 12:01 | P.DS ---
Providers Date of admission: 06/07/19 20:49 Expected date of discharge: 06/10/19 Attending physician: James Espinoza Consults: 06/07/19 20:49 Consult Physician Routine Consulting Provider: Pablo Mckeon Consult Reason/Comments: CVA Do you want consulting provider notified?: Yes Primary care physician: 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 Chronic stable medical conditions include Parkinson's disease, CHF, atrial fibrillation, diabetes, hyperlipidemia, hypertension, coronary artery disease with stent and bypass, cognitive impairment, chronic gait dysfunction uses a scooter,. Patient presented to ER with the right-sided weakness. Unclear to the ER if patient to take his medications. ER physician did inform me that the family was informed about neurology service. Not available. Patient's family is fine with that and did not want the patient to be transferred anywhere. Neurology service was to be are available this morning. Patient sitting upon a chair. Able to answer simple questions. Has right-sided weakness. Did use breakfast this morning. Denies any headache or double vision. No nausea vomiting. Difficult to get history from the patient. Admitted with stroke causing right-sided weakness. Some improvement. Patient also had dysarthria and slight dysphagia. Seen by PTOT and speech therapy. Overall prognosis is guarded. Today-sitting up in a chair. Slight improvement in the right arm weakness. Both the sons are present. Questions were answered. ECF liaison was present. neurologist was not available today.-He has taken sick. Discussion and discharge planning more than 35 minutes Consultation: Dr. Taylor mckeon fromneurology. Physical examination: VITAL SIGNS: 97.8, 70, 16, 151/66, 92% on room air GENERAL: BMI 37.6, sitting up in a chair, awake, EYES: Pupils equal. Conjunctiva normal. HEENT: External appearance of nose and ears normal, oral cavity grossly normal. NECK: JVD unable to assess; masses not palpable. HEART: First and second heart sounds are normal; no edema. LUNGS:[ Respiratory rate normal; slightly decreased breath sounds. ABDOMEN: Soft, nontender, liver spleen not palpable, no masses palpable. PSYCH: May answer occasional question were speaking ordered to NEUROLOGICAL: Speech is slow, power in the right side 2/5. Bradykinesia. INVESTIGATIONS, reviewed in the clinical context: White count 9.5, hemoglobin 14.1, platelets 89, potassium 4.6, bun 27, creatinine 1.34, LDL 49 Computed tomography scan brain-cerebral atrophy and chronic small vessel ischemia. Old bilateral frontal lobe infarct. CT angiogram head and neck-occlusion of proximal left anterior cerebral artery with filling to the anterior communicating artery. Distally. Chest x-ray film personally reviewed by me-cardiomegaly, poor inspiration EKG tracing personally reviewed by me-normal sinus rhythm 2-D echo-not a good quality Assessment: -Acute stroke possibly in the left MCA territory with right-sided weakness- -Acute dysarthriaand dysphagia from stroke -Idiopathic Parkinson's disease -AICD -Chronic congestive heart failure from systolic dysfunction EF less than 30% -Paroxysmal atrial fibrillation currently in sinus rhythm -Diabetes mellitus type 2 -Hyperlipidemia -Essential hypertension -Coronary artery disease with a history of stent and bypass -Moderate cognitive impairment from underlying Parkinson's disease -BPH -Bilateral kidney stones -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 -Hypothyroid -Chronic occlusion of anterior cerebral artery No code disposition: [facility] Patient Condition at Discharge: Undetermined Plan - Discharge Summary Discharge Rx Participant: Yes New Discharge Prescriptions: New Aspirin 81 mg PO DAILY #1 chewable Clopidogrel [Plavix] 75 mg PO DAILY tab Continue Metoprolol Succinate [Toprol XL] 50 mg PO DAILY@1000 Linagliptin [Tradjenta] 5 mg PO DAILY@1000 Lisinopril [Zestril] 20 mg PO DAILY@1000 Levothyroxine Sodium [Synthroid] 25 mcg PO DAILY@1000 Carbidopa-Levodopa ER 50-200Mg [Sinemet CR 50-200 mg] 1 tab PO TID@1000,1400,1999 sitaGLIPtin [Januvia] 100 mg PO DAILY@1000 Mupirocin [Mupirocin 2%] 1 applic TOPICAL BID@999,1999 Atorvastatin [Lipitor] 40 mg PO DAILY@1000 Amiodarone [Cordarone] 100 mg PO DAILY@1000 Discontinued glipiZIDE [Glucotrol] 5 mg PO DAILY@1000 Furosemide [Lasix] 40 mg PO DAILY PRN PRN Reason: Edema Discharge Medication List Linagliptin [Tradjenta] 5 mg PO DAILY@1000 08/21/15 [History] Metoprolol Succinate [Toprol XL] 50 mg PO DAILY@99911/19/14 [History] Lisinopril [Zestril] 20 mg PO DAILY@99909/13/15 [History] Levothyroxine Sodium [Synthroid] 25 mcg PO DAILY@99904/11/16 [History] Carbidopa-Levodopa ER 50-200Mg [Sinemet CR 50-200 mg] 1 tab PO TID@999,1399,199907/21/18 [History] Amiodarone [Cordarone] 100 mg PO DAILY@99906/08/19 [History] Atorvastatin [Lipitor] 40 mg PO DAILY@99906/08/19 [History] Mupirocin [Mupirocin 2%] 1 applic TOPICAL BID@06/08/19 [History] sitaGLIPtin [Januvia] 100 mg PO DAILY@99906/08/19 [History] Aspirin 81 mg PO DAILY #1 chewable 06/10/19 [Rx] Clopidogrel [Plavix] 75 mg PO DAILY tab 06/10/19 [Rx] Follow up Appointment(s)/Referral(s): Neurologistdr [Other] - 2 Weeks Martín Julien MD [Primary Care Provider] - 1-2 days
== END 2019-06-10 15:55 | DRG 65 ==
LOC: EC 18:41 → 3SCARD 20:49
PROVIDERS: ADMIT Hospitalist; ATTEND Hospitalist
DX: I63.322 Cerebral infarction due to thrombosis of left anterior cerebral artery (principal); G81.91 Hemiplegia, unspecified affecting right dominant side; I50.22 Chronic systolic (congestive) heart failure; D69.6 Thrombocytopenia, unspecified; E11.42 Type 2 diabetes mellitus with diabetic polyneuropathy; F01.50 Vascular dementia, unspecified severity, without behavioral disturbance, psychotic disturbance, mood disturbance, and anxiety; G20 Parkinson's disease; F02.80 Dementia in other diseases classified elsewhere, unspecified severity, without behavioral disturbance, psychotic disturbance, mood disturbance, and anxiety; I11.0 Hypertensive heart disease with heart failure; R47.1 Dysarthria and anarthria; R13.10 Dysphagia, unspecified; R40.2142 Coma scale, eyes open, spontaneous, at arrival to emergency department; R40.2362 Coma scale, best motor response, obeys commands, at arrival to emergency department; R40.2242 Coma scale, best verbal response, confused conversation, at arrival to emergency department; R29.714 NIHSS score 14; R26.9 Unspecified abnormalities of gait and mobility; K64.9 Unspecified hemorrhoids; R32 Unspecified urinary incontinence; T14.8XXA Other injury of unspecified body region, initial encounter; E03.9 Hypothyroidism, unspecified; E78.5 Hyperlipidemia, unspecified; H91.90 Unspecified hearing loss, unspecified ear; I25.10 Atherosclerotic heart disease of native coronary artery without angina pectoris; I25.2 Old myocardial infarction; I25.5 Ischemic cardiomyopathy; I44.0 Atrioventricular block, first degree; I48.0 Paroxysmal atrial fibrillation; J32.0 Chronic maxillary sinusitis; N20.0 Calculus of kidney; N40.0 Benign prostatic hyperplasia without lower urinary tract symptoms; R29.6 Repeated falls; M19.90 Unspecified osteoarthritis, unspecified site; Z79.82 Long term (current) use of aspirin; Z79.84 Long term (current) use of oral hypoglycemic drugs; Z79.890 Hormone replacement therapy; Z79.899 Other long term (current) drug therapy; Z86.73 Personal history of transient ischemic attack (TIA), and cerebral infarction without residual deficits; Z87.442 Personal history of urinary calculi; Z87.891 Personal history of nicotine dependence; Z95.1 Presence of aortocoronary bypass graft; Z95.5 Presence of coronary angioplasty implant and graft; Z95.810 Presence of automatic (implantable) cardiac defibrillator; Z96.1 Presence of intraocular lens; Z91.81 History of falling
CPT/HCPCS: 36415; 70450; 70496; 70498; 71046; 80053; 80061; 82550; 82553; 82607; 82746; 83036; 84443; 84484; 85025; 93005; 93306; 96360; 96361; 99291

== ENCOUNTER 2020-03-28 17:06 | Emergency (ER) | payer MEDICARE, OTHER ==
--- NOTE | 2020-03-28 17:26 | ED ---
General Adult HPI - General Chief complaint: Fall Stated complaint: Fall Time Seen by Provider: 03/28/20 17:16 Source: EMS Mode of arrival: EMS Limitations: altered mental status - History of Present Illness Initial comments: Dictation was produced using [employer] dictation software. please excuse any grammatical, word or spelling errors. This patient was cared for during a federal and state declared state of emergency secondary to Covid 19 Chief Complaint: 79-year-old male presents after fall from wheelchair History of Present Illness: Patient is a 79-year-old resident at a senior care. Patient is on Plavix. He reports that he was reaching down while sitting in his wheelchair. He had again that was on the floor when he reached Christianson Christianson. He fell out of his wheelchair striking his head. Denies any loss of consciousness. He states he feels fine at this moment. Doesn't have any complaints. No headache, nausea vomiting. No arm chest pelvic pain or extremity pain. The ROS documented in this emergency department record has been reviewed and confirmed by me. Those systems with pertinent positive or negative responses have been documented in the HPI. All other systems are other negative and/or noncontributory. PHYSICAL EXAM: General Impression: Alert and oriented x3, not in acute distress HEENT: mild abrasion to the anterior forehead, extra-ocular movements intact, pupils equal and reactive to light bilaterally, mucous membranes moist. Cardiovascular: Heart regular rate and rhythm Chest: Able to complete full sentences, no retractions, no tachypnea Abdomen: abdomen soft, non-tender, non-distended, no organomegaly Musculoskeletal: Pulses present and equal in all extremities, no peripheral edema Motor: no focal deficits noted Neurological: CN II-XII grossly intact, no focal motor or sensory deficits noted Skin: Intact with no visualized rashes Psych: Normal affect and mood ED course: 79-year-old male presents after fall. Vital signs upon arrival are within acceptable limits. Pelvis x-ray chest x-ray nonacute , for any traumatic processes. Computed tomography scan of the brain and C-spine shows no acute traumatic injuries. Patient was in the emergency department for approximately one hour with stable medical condition. Patient will be discharge back to senior care - Related Data Home Medications Medication Instructions Recorded Confirmed Linagliptin [Tradjenta] 5 mg PO DAILY 11/19/14 03/28/20 Metoprolol Succinate [Toprol XL] 50 mg PO DAILY 11/19/14 03/28/20 lisinopriL [Zestril] 20 mg PO DAILY 09/13/15 03/28/20 Levothyroxine Sodium [Synthroid] 25 mcg PO SUTUWEFRSA 04/11/16 03/28/20 Carbidopa-Levodopa ER 50-200Mg 1 tab PO TID 07/21/18 03/28/20 [Sinemet CR 50-200 mg] Amiodarone [Cordarone] 100 mg PO DAILY 06/08/19 03/28/20 Atorvastatin [Lipitor] 40 mg PO DAILY 06/08/19 03/28/20 INSULIN ASPART (NovoLOG) [NovoLOG 4 unit SQ AC-BID@1200,1800 03/28/20 03/28/20 (formulary)] INSULIN ASPART (NovoLOG) [NovoLOG 5 unit SQ AC-BRKFST 03/28/20 03/28/20 (formulary)] Levothyroxine Sodium [Synthroid] 50 mcg PO MOTH 03/28/20 03/28/20 Loperamide HCl [Imodium A-D] 2 - 4 mg PO QID PRN 03/28/20 03/28/20 Magnesium Hydroxide [Milk of 7,200 mg PO Q48H PRN 03/28/20 03/28/20 Magnesia Concentrate] Na Phos,M-B/Na Phos,Di-Ba [Fleet 133 ml RECTAL DAILY PRN 03/28/20 03/28/20 Adult] bisacodyL [Bisacodyl] 10 mg RECTAL DAILY PRN 03/28/20 03/28/20 Previous Rx's Medication Instructions Recorded Aspirin 81 mg PO DAILY #1 chewable 06/10/19 Clopidogrel [Plavix] 75 mg PO DAILY tab 06/10/19 Allergies Allergy/AdvReac Type Severity Reaction Status Date / Time No Known Allergies Allergy Verified 03/28/20 18:04 Review of Systems ROS Statement: Those systems with pertinent positive or pertinent negative responses have been documented in the HPI. ROS Other: All systems not noted in ROS Statement are negative. Past Medical History Past Medical History: Coronary Artery Disease (CAD), Chest Pain / Angina, Heart Failure, CVA/TIA, Diabetes Mellitus, Hearing Disorder / Deafness, Hyperlipidemia, Hypertension, Myocardial Infarction ([place]), Prostate Disorder Additional Past Medical History / Comment(s): CVA 05/2011 and 11/2012,5-20-16 affected rt side, TIA's, parkinsons, ischemic cardiomyopathy with L ventricular ejection fx < 30% ( has AICD), NIDDM type II, BPH, DJD, gait dysfunction/falls, nephrolithiasis, hemorrhiods.falls svt, paroxysmal afib, djd Last Myocardial Infarction Date:: 2004 History of Any Multi-Drug Resistant Organisms: None Reported Past Surgical History: Coronary Bypass/CABG, Heart Catheterization With Stent, Hernia Repair, Pacemaker Additional Past Surgical History / Comment(s): CABG-4 vessel in 2005, AICD 2004 and gen change 11/23/14, bilateral lens implants, lasik eye surgery, L hernia repair Past Anesthesia/Blood Transfusion Reactions: No Reported Reaction Date of Last Stent Placement:: 2007 Type of Cardiac Device: AICD Device Placement Date:: original 2004 with gen change 10/2014 Past Psychological History: No Psychological Hx Reported Smoking Status: Never smoker Past Alcohol Use History: None Reported Past Drug Use History: None Reported - Past Family History Father Family Medical History: No Reported History Additional Family Medical History / Comment(s): Father was healthy and at age 84 yrs. Mother Family Medical History: No Reported History Additional Family Medical History / Comment(s): Mother was healthy and at age 82 or 83. General Exam Limitations: altered mental status Course Vital Signs 03/28/20 17:09 Temperature 97.5 F L Pulse Rate 58 L Respiratory 18 Rate Blood Pressure 146/70 O2 Sat by Pulse 98 Oximetry Disposition Clinical Impression: Head contusion Disposition: HOME SELF-CARE Condition: Good Instructions (If sedation given, give patient instructions): Fall Prevention for Older Adults (ED) Is patient prescribed a controlled substance at d/c from ED?: No Referrals: Rogelio Gibson MD [Primary Care Provider] - 1-2 days Time of Disposition: 18:18
--- NOTE | 2020-03-28 18:04 | CT ---
EXAMINATION TYPE: CT brain justen wo con DATE OF EXAM: 03/28/2020 COMPARISON: 06/07/2019 HISTORY: Fall injury CT DLP: 1467.7 mGycm Automated exposure control for dose reduction was used. There is cerebral atrophy. There is patchy hypodensity in the white matter around the frontal horns o f the lateral ventricles. There is enlargement of the ventricles. There is no midline shift. There is no sign of intracranial hemorrhage. There is cortical patchy hypodensity in both frontal lobes. The cervical vertebra have fairly normal alignment. There is mild degenerative disc space narrowing a t C5-6 and C6-7 with spurring. Facet joints are intact. There is multilevel cervical facet arthropath y. The skull base is intact. There is normal aeration of the mastoid sinuses. I see no bony destructi ve process. There is mucus retention cysts and fluid level in the left maxillary sinus. IMPRESSION: Cerebral atrophy and chronic small vessel ischemia. Bilateral old frontal lobe cortical infarct. No a cute intracranial abnormality. No change. Cervical mild spondylotic changes mainly at C5-6 and C6-7. No fracture seen.
--- NOTE | 2020-03-28 18:09 | XR ---
EXAMINATION TYPE: XR chest 1V portable DATE OF EXAM: 03/28/2020 COMPARISON: 06/07/2019 HISTORY: Fall. Pain. TECHNIQUE: FINDINGS: Heart is enlarged. There is no heart failure. There is left axillary pacemaker. There are s ternal wires. Costophrenic angles are clear. IMPRESSION: Cardiomegaly. No heart failure. No significant change compared to old exam.
--- NOTE | 2020-03-28 18:12 | XR ---
EXAMINATION TYPE: XR pelvis AP view DATE OF EXAM: 03/28/2020 COMPARISON: 09/15/2017 HISTORY: Pain TECHNIQUE: Single view FINDINGS: The pelvic ring is intact. There is acetabular mild spur formation. Sacroiliac joints appea r intact. Proximal femurs appear intact. IMPRESSION: Mild acetabular spurring. No fracture seen. No change compared to old exam.
[2020-03-28 19:03] VITALS: BP 163/88; PULSE 57; RESP 20; TEMP 98.2
== END 2020-03-28 19:26 | disposition home or self-care (01) ==
LOC: EC 17:06
DX: S00.93XA Contusion of unspecified part of head, initial encounter (principal); I48.0 Paroxysmal atrial fibrillation; I50.9 Heart failure, unspecified; I11.0 Hypertensive heart disease with heart failure; E11.9 Type 2 diabetes mellitus without complications; E78.5 Hyperlipidemia, unspecified; I25.2 Old myocardial infarction; N40.0 Benign prostatic hyperplasia without lower urinary tract symptoms; Z79.4 Long term (current) use of insulin; Z79.899 Other long term (current) drug therapy; Z95.5 Presence of coronary angioplasty implant and graft; Z95.1 Presence of aortocoronary bypass graft; Z95.810 Presence of automatic (implantable) cardiac defibrillator; Y92.129 Unspecified place in nursing home as the place of occurrence of the external cause; Z86.73 Personal history of transient ischemic attack (TIA), and cerebral infarction without residual deficits; V00.811A Fall from moving wheelchair (powered), initial encounter
CPT/HCPCS: 70450; 71045; 72125; 72170; 99284